=== PATIENT | female | born 1950 | race Caucasian/White ===

== ENCOUNTER 2022-06-02 14:03 | Inpatient (IN) ==
--- NOTE | 2022-06-02 14:29 | Emergency Department Note ---
Impression & Plan GI bleed ADMIT ED Provider Note HPI: The patient is a 71-year-old female who presents the emergency department with a chief complaint of intermittent lightheadedness and generalized weakness for the past several days. Patient states she was seen by her PCP today for the symptoms, she was recommended to come to the emergency department for further assessment as she states her PCP noted "fluid on my lungs". On arrival here to the ED the patient is hemodynamically stable, she is saturating well on room air, heart rate is within normal limits, blood pressure stable 131/89. Patient is afebrile on arrival. ROS: - Per HPI *Outpatient medications and allergy history reviewed. *Pertinent external medical records reviewed. PE: General: Alert HEENT: Normocephalic, trachea midline Eyes: Extraocular eye movement is intact, no scleral erythema Pulmonary: Clear to auscultation bilaterally, no wheezing Cardio: Regular rate and irregular GI: Abdomen is soft to palpation : No suprapubic tenderness MSK: No evidence of trauma or malformation of the extremities, no edema Skin: No evidence of rash Neuro: Alert, no focal deficits Psychiatric: Cooperative property assessment monitor: (As interpreted by myself): - An order was placed for continuous cardiac monitoring - Patient was noted to be in sinus rhythm with a rate of 70 EKG: (As interpreted by myself): Rate: 69 Rhythm: Atrial fibrillation Intervals: Within normal limits ST changes: No ST elevation Time: 14:23 Interventions provided in ED: -IV fluid bolus, packed red blood cell transfusion ordered Differential Diagnosis: ACS, pulmonary edema, CHF exacerbation, sepsis, pulmonary effusion, amongst other potential pathologies. Medical Decision Making: The patient is a 71-year-old female who presents emergency department with a chief complaint of generalized weakness and intermittent shortness of breath. Patient states that she feels generally weak and this seems to worsen with exertion, at times she feels more short of breath with exertion. Denies any recent chest pain, denies any abdominal pain, denies any recent nausea or vomiting. IV was established and lab work obtained, patient's lab work shows multiple abnormalities including a hemoglobin of 7.2, she is hemodynamically stable on arrival and when asked the patient about her hemoglobin level she tells me this is not previously been an issue for her. She does state that she has had some dark stools more often over the past several weeks, denies any luis bleeding per rectum, denies any hematemesis. Rectal examination was done at the bedside and occult stool test was performed that was positive. Lab work also shows evidence of renal failure with creatinine of 3.76, also evidence of slight elevation in troponin level at 43.7, BNP is elevated. Patient was given IV fluids here in the ED given her anemia and acute kidney injury, despite mild pulmonary edema on chest x-ray and elevated BNP level as she is saturating well on room air. Her daughter at the bedside was able to show me lab work from January 2022 that showed a hemoglobin level greater than 11 and creatinine level at 2.8. I think her symptoms of shortness of breath and generalized weakness are likely more secondary to symptomatic anemia as opposed to fluid overload. In addition, there is a mild transaminitis, patient denies any recent nausea or vomiting, denies any abdominal pain, Gómez sign is negative on my exam, low suspicion for any acute biliary pathology. Type and screen was ordered, patient was consented at the bedside for packed red blood cell transfusion given her anemia with evidence of end organ damage, patient does have antibodies unfortunately therefore there will be some delay, fortunately she is hemodynamically stable and in no acute distress currently. At this time will not plan for urgent reversal of Eliquis with Kcentra, will plan to hold next dose while inpatient given the patient's hemodynamic stability without luis bleeding. I discussed all of the above findings with the on-call hospitalist for [facility] [place], Dr. Shah, who did accept the patient for admission. At this time given her hemodynamic stability GI referral/consult will be made by the inpatient team. Patient and her family at the bedside are in agreement to the above plan the patient was placed for admission in stable condition. Consultants: Hospitalist service, Dr. Shah Disposition discussion held by myself with: Patient * CRITICAL CARE TIME: ( 40 ) minutes -Stabilization of anemia with hemoglobin of 7.2 requiring packed red blood cell transfusion as this is in the setting of acute kidney injury and elevated troponin, management of symptomatic anemia, discussion with other physicians and arrangement of admission Diagnosis: 1. Lower GI bleed 2. Occult positive stool 3. Symptomatic anemia 4. Elevated troponin 5. Acute on chronic kidney injury 6. Transaminitis, mild Disposition: Admission Sung Gomez DO Emergency Medicine Past Med/Surg History Social History Smoking Status: Former smoker Feels Safe at Home: Yes Allergies Allergies Allergy/AdvReac Type Severity Reaction Status Date / Time tramadol Allergy Severe Anaphylaxis Verified 06/02/22 16:16 dopamine Allergy Unknown CAN'T Verified 06/02/22 16:16 REMEMBER morphine AdvReac Severe SEVERE Verified 06/02/22 16:16 VOMITING--"SICKER THAN A DOG" gabapentin AdvReac Intermediate INCREASED Verified 06/02/22 16:16 LEG EDEMA lisinopril AdvReac Intermediate Cough Verified 06/02/22 16:16 rofecoxib AdvReac Intermediate SWELLING Verified 06/02/22 16:16 OF ANKLES/FEET Home Meds Home Medications Medication Instructions Recorded Confirmed acetaminophen 500 mg tablet 1,000 mg PO BID PRN Pain 06/02/22 06/02/22 (Tylenol Extra Strength) albuterol sulfate 90 mcg/actuation 2 puff inhalation Q4H PRN 06/02/22 06/02/22 aerosol inhaler (ProAir HFA) Shortness Of Breath Or Wheezing allopurinol 300 mg tablet 300 mg PO QAM 06/02/22 06/02/22 anastrozole 1 mg tablet 1 mg PO QAM 06/02/22 06/02/22 apixaban 5 mg tablet (Eliquis) 5 mg PO BID 06/02/22 06/02/22 bumetanide 1 mg tablet 1 mg PO BID 06/02/22 06/02/22 carvedilol 12.5 mg tablet 12.5 mg PO BID 06/02/22 06/02/22 cholecalciferol (vitamin D3) 50 50 mcg PO QAM 06/02/22 06/02/22 mcg (2,000 unit) capsule (Vitamin D3) dulaglutide 3 mg/0.5 mL 3 mg subcut WK 06/02/22 06/02/22 subcutaneous pen injector (Trulicity) empagliflozin 10 mg tablet 10 mg PO QAM 06/02/22 06/02/22 fluticasone propionate 230 2 puff inhalation BID 06/02/22 06/02/22 mcg-salmeterol 21 mcg/actuation HFA inhaler (Advair HFA) fluticasone propionate 50 2 spray intranasal HS 06/02/22 06/02/22 mcg/actuation nasal spray,suspension folic acid 1 mg tablet 1 mg PO QAM 06/02/22 06/02/22 insulin aspart U-100 100 unit/mL 1 sliding scale dose continuous 06/02/22 06/02/22 subcutaneous solution subcutaneous infusion CONTINOUS lorazepam 0.5 mg tablet 0.5 mg PO HS PRN Insomnia 06/02/22 06/02/22 nitroglycerin 0.4 mg sublingual 0.4 mg sublingual DIRECTED PRN 06/02/22 06/02/22 tablet (Nitrostat) Chest Pain pantoprazole 20 mg tablet,delayed 20 mg PO DAILYBB 06/02/22 06/02/22 release ranolazine 500 mg tablet,extended 500 mg PO BID 06/02/22 06/02/22 release,12 hr rosuvastatin 40 mg tablet (Crestor) 40 mg PO HS 06/02/22 06/02/22 trazodone 100 mg tablet 100 mg PO HS PRN Sleep 06/02/22 06/02/22 vericiguat 10 mg tablet (Verquvo) 10 mg PO DAILY 06/02/22 06/02/22 Results & Data (ED) Vital Signs Vital Signs - 24 hr 06/02/22 14:09 06/02/22 14:13 06/02/22 14:13 Temperature 36.7 C Temperature Source Oral Pulse Rate 92 H Pulse Rate [Apical] Respiratory Rate 20 Respiratory Effort / Characteristics Non-Labored Spontaneous SOB on Exertion Respiratory Depth Normal Normal Blood Pressure 131/89 Blood Pressure [Left Arm] Blood Pressure Mean 103 Blood Pressure Mean [Left Arm] Pulse Oximetry 96 96 Oxygen Delivery Method Room Air Room Air Sepsis Recent Fever Within 48 Hours No Sepsis New/Unexplained Change in Mental Status No Sepsis Action Taken by Nursing No Action Required 06/02/22 14:20 06/02/22 15:00 Temperature Temperature Source Pulse Rate 85 Pulse Rate [Apical] 67 Respiratory Rate 18 Respiratory Effort / Characteristics Non-Labored Spontaneous Respiratory Depth Normal Blood Pressure Blood Pressure [Left Arm] 123/54 L Blood Pressure Mean Blood Pressure Mean [Left Arm] 77 Pulse Oximetry 98 Oxygen Delivery Method Room Air Sepsis Recent Fever Within 48 Hours Sepsis New/Unexplained Change in Mental Status Sepsis Action Taken by Nursing Laboratory Data 06/02/22 14:10 06/02/22 14:10 Lab Results 06/02/22 06/02/22 06/02/22 Range/Units 14:10 14:10 14:10 WBC 8.42 (4.8-10.8) K/ul RBC 2.87 L (4.20-5.40) M/uL Hgb 7.2 L (12.0-16.0) g/dl Hct 23.0 L (37.0-47.0) % MCV 80.1 (80.0-100.0) fL MCH 25.1 (25.0-34.0) pg MCHC 31.3 L (32.0-36.0) g/dL RDW Std Deviation 57.1 H (36.4-46.3) fL RDW Coeff of Vasu 19.8 H (11.5-14.5) % Plt Count 163 (130-400) K/uL MPV 11.2 (9.4-12.4) fL Immature Gran % (Auto) 0.6 % Neut % (Auto) 79.6 % Lymph % (Auto) 9.0 % [place] % (Auto) 8.8 % Eos % (Auto) 1.5 % Baso % (Auto) 0.5 % Neut # (Auto) 6.70 H (1.40-6.50) K/uL Lymph # (Auto) 0.76 L (1.2-3.4) K/uL [place] # (Auto) 0.74 H (0.11-0.59) K/uL Eos # (Auto) 0.13 (0-0.50) K/uL Baso # (Auto) 0.04 (0-0.2) K/uL Immature Gran # (Auto) 0.05 (0.01-0.20) K/uL Absolute Nucleated RBC 0.02 (0-0.12) K/uL Nucleated RBC % (auto) 0.2 % Polychromasia 1+ PT 20.2 H (9.0-12.0) Seconds INR 2.0 H (0.9-1.1) Sodium 138 (136-145) mmol/L Potassium 3.5 (3.5-5.1) mmol/L Chloride 101 (98-107) mmol/L Carbon Dioxide 27 (21-32) mmol/L Anion Gap 10 (3-11) BUN 73 H (6-23) mg/dl Creatinine 3.76 H (0.6-1.2) mg/dl Est Cr Clr Drug Dosing 15.4 ml/min Est GFR ( Amer) 13.2 ml/min Est GFR (Non-Af Amer) 11.4 ml/min BUN/Creatinine Ratio 19.4 (10-20) Glucose 57 L (70-99(Fasting)) mg/dl Calcium 9.9 (8.5-10.1) mg/dl Iron 21 L (35-150) mcg/dl TIBC 436 (250-450) mcg/dl Unsaturated IBC 415 H (155-355) mcg/dl Transferrin % Sat 5 L (15-50) % Total Bilirubin 1.3 H (0.2-1.0) mg/dl AST 145 H (13-39) U/L ALT 115 H (7-52) U/L Alkaline Phosphatase 125 H (34-104) U/L Troponin I High Sens 43.7 H (0-14) pg/ml B-Natriuretic Peptide (0-100) pg/ml Total Protein 7.0 (6.0-8.3) gm/dl Albumin 3.9 (3.4-5.0) gm/dl Globulin 3.1 (2.5-4.0) gm/dl Albumin/Globulin Ratio 1.3 (0.9-2) Lipase 57 (11-82) U/L SARS-CoV-2 (PCR) Blood Type Blood Type Recheck Antibody Screen Crossmatch 06/02/22 06/02/22 06/02/22 Range/Units 14:30 14:54 16:13 WBC (4.8-10.8) K/ul RBC (4.20-5.40) M/uL Hgb (12.0-16.0) g/dl Hct (37.0-47.0) % MCV (80.0-100.0) fL MCH (25.0-34.0) pg MCHC (32.0-36.0) g/dL RDW Std Deviation (36.4-46.3) fL RDW Coeff of Vasu (11.5-14.5) % Plt Count (130-400) K/uL MPV (9.4-12.4) fL Immature Gran % (Auto) % Neut % (Auto) % Lymph % (Auto) % [place] % (Auto) % Eos % (Auto) % Baso % (Auto) % Neut # (Auto) (1.40-6.50) K/uL Lymph # (Auto) (1.2-3.4) K/uL [place] # (Auto) (0.11-0.59) K/uL Eos # (Auto) (0-0.50) K/uL Baso # (Auto) (0-0.2) K/uL Immature Gran # (Auto) (0.01-0.20) K/uL Absolute Nucleated RBC (0-0.12) K/uL Nucleated RBC % (auto) % Polychromasia PT (9.0-12.0) Seconds INR (0.9-1.1) Sodium (136-145) mmol/L Potassium (3.5-5.1) mmol/L Chloride (98-107) mmol/L Carbon Dioxide (21-32) mmol/L Anion Gap (3-11) BUN (6-23) mg/dl Creatinine (0.6-1.2) mg/dl Est Cr Clr Drug Dosing ml/min Est GFR ( Amer) ml/min Est GFR (Non-Af Amer) ml/min BUN/Creatinine Ratio (10-20) Glucose (70-99(Fasting)) mg/dl Calcium (8.5-10.1) mg/dl Iron (35-150) mcg/dl TIBC (250-450) mcg/dl Unsaturated IBC (155-355) mcg/dl Transferrin % Sat (15-50) % Total Bilirubin (0.2-1.0) mg/dl AST (13-39) U/L ALT (7-52) U/L Alkaline Phosphatase (34-104) U/L Troponin I High Sens (0-14) pg/ml B-Natriuretic Peptide 1106 H (0-100) pg/ml Total Protein (6.0-8.3) gm/dl Albumin (3.4-5.0) gm/dl Globulin (2.5-4.0) gm/dl Albumin/Globulin Ratio (0.9-2) Lipase (11-82) U/L SARS-CoV-2 (PCR) Blood Type O Positive Blood Type Recheck O Positive Antibody Screen POSITIVE A Crossmatch See Detail 06/02/22 06/02/22 Range/Units 16:46 17:21 WBC (4.8-10.8) K/ul RBC (4.20-5.40) M/uL Hgb 6.9 L* (12.0-16.0) g/dl Hct 21.9 L (37.0-47.0) % MCV (80.0-100.0) fL MCH (25.0-34.0) pg MCHC (32.0-36.0) g/dL RDW Std Deviation (36.4-46.3) fL RDW Coeff of Vasu (11.5-14.5) % Plt Count (130-400) K/uL MPV (9.4-12.4) fL Immature Gran % (Auto) % Neut % (Auto) % Lymph % (Auto) % [place] % (Auto) % Eos % (Auto) % Baso % (Auto) % Neut # (Auto) (1.40-6.50) K/uL Lymph # (Auto) (1.2-3.4) K/uL [place] # (Auto) (0.11-0.59) K/uL Eos # (Auto) (0-0.50) K/uL Baso # (Auto) (0-0.2) K/uL Immature Gran # (Auto) (0.01-0.20) K/uL Absolute Nucleated RBC (0-0.12) K/uL Nucleated RBC % (auto) % Polychromasia PT (9.0-12.0) Seconds INR (0.9-1.1) Sodium (136-145) mmol/L Potassium (3.5-5.1) mmol/L Chloride (98-107) mmol/L Carbon Dioxide (21-32) mmol/L Anion Gap (3-11) BUN (6-23) mg/dl Creatinine (0.6-1.2) mg/dl Est Cr Clr Drug Dosing ml/min Est GFR ( Amer) ml/min Est GFR (Non-Af Amer) ml/min BUN/Creatinine Ratio (10-20) Glucose (70-99(Fasting)) mg/dl Calcium (8.5-10.1) mg/dl Iron (35-150) mcg/dl TIBC (250-450) mcg/dl Unsaturated IBC (155-355) mcg/dl Transferrin % Sat (15-50) % Total Bilirubin (0.2-1.0) mg/dl AST (13-39) U/L ALT (7-52) U/L Alkaline Phosphatase (34-104) U/L Troponin I High Sens (0-14) pg/ml B-Natriuretic Peptide (0-100) pg/ml Total Protein (6.0-8.3) gm/dl Albumin (3.4-5.0) gm/dl Globulin (2.5-4.0) gm/dl Albumin/Globulin Ratio (0.9-2) Lipase (11-82) U/L SARS-CoV-2 (PCR) Cancelled Blood Type Blood Type Recheck Antibody Screen Crossmatch Administered Medications Pantoprazole Sodium 40 mg/ (Syringe) 10 mls @ 5 mls/min IV BID STANISLAW Stop: 07/02/22 16:34 Last Admin: 06/02/22 17:33 Dose: 5 mls/min Documented By: NRB Discontinued Medications Sodium Chloride (Nss 1000ml) 500 mls @ 999 mls/hr IV .Q31M ONE Stop: 06/02/22 16:22 Last Admin: 06/02/22 17:18 Dose: 999 mls/hr Documented By: QGV Imaging Data Radiologist's Impression: Chest X-Ray 06/02/22 14:09 XR chest 1V portable HISTORY: 71 years-old Female Chest pain, nonspecific COMPARISON: None TECHNIQUE: AP view of the chest FINDINGS: Cardiac silhouette is enlarged. Left subclavian pacer with prior median sternotomy and CABG. No pneumothorax, pleural effusion, airspace consolidation or overt pulmonary edema. Suggested coronary vascular congestion. Left upper chest vascular stent graft. Bones appear grossly intact. IMPRESSION: Cardiomegaly with pulmonary vascular congestion. ACT 112: Negative or not required by law. The above report was generated using voice recognition software. It may contain grammatical, syntax or spelling errors. Electronically signed by: Amos Lanza M.D. 06/02/2022 2:40 PM Discharge Plan Visit Data Chief Complaint: Cardiac Assessment ED Provider: Sung Gomez Discharge Problem: GI bleed Forms Stand Alone Forms: [facility] [employer] Prescriptions Prescriptions: No Action anastrozole 1 mg tablet 1 mg PO QAM carvedilol 12.5 mg tablet 12.5 mg PO BID Rx Instructions: PER EXT MED HX--LAST FILLED 05/08/22. PER [facility] TAKING 6.25 MG BID acetaminophen [Tylenol Extra Strength] 500 mg Tablet 1,000 mg PO BID PRN (Reason: Pain) pantoprazole 20 mg Tablet,Delayed Release (Dr/Ec) 20 mg PO DAILYBB lorazepam 0.5 mg Tablet 0.5 mg PO HS PRN (Reason: Insomnia) trazodone 100 mg tablet 100 mg PO HS PRN (Reason: Sleep) insulin aspart U-100 100 unit/mL Solution 1 sliding scale dose continuous subcutaneous infusion CONTINOUS Rx Instructions: PER [facility]--15 UNITS/BREAKFAST, 40 UNITS LUNCH & DINNER WITH ADDITIONAL CORRECTION FACTOR. nitroglycerin [Nitrostat] 0.4 mg Tablet, Sublingual 0.4 mg sublingual DIRECTED PRN (Reason: Chest Pain) Rx Instructions: 1 TAB UNDER TONGUE EVERY 5 MIN. NEEDED, MAX 3 DOSES, IF CONTINUES CALL 911. bumetanide 1 mg tablet 1 mg PO BID Rx Instructions: PER [facility]--IF WT GAIN >3LB/24 HR OR 5 LB/3 DAYS, TAKES 2 MG IN MORNING. folic acid 1 mg Tablet 1 mg PO QAM allopurinol 300 mg tablet 300 mg PO QAM albuterol sulfate [ProAir HFA] 90 mcg/actuation Hfa Aerosol Inhaler 2 puff INHALATION Q4H PRN (Reason: Shortness Of Breath Or Wheezing) fluticasone propionate [Flonase] 50 mcg/actuation [place],Suspension 2 spray INTRANASAL HS Rx Instructions: administer into each nostril rosuvastatin [Crestor] 40 mg Tablet 40 mg PO HS ranolazine [Ranexa] 500 mg Tablet Extended Release 12 Hr 500 mg PO BID Advair HFA 230-21 mcg/actuation Hfa Aerosol Inhaler 2 puff INHALATION BID cholecalciferol (vitamin D3) [Vitamin D3] 50 mcg (2,000 unit) Capsule 50 mcg PO QAM Eliquis 5 mg tablet 5 mg PO BID empagliflozin 10 mg Tablet 10 mg PO QAM Trulicity 3 mg/0.5 mL pen injector 3 mg SUBCUT WK Rx Instructions: TAKES ON SUNDAYS Verquvo 10 mg Tablet 10 mg PO DAILY Rx Instructions: must administer with a meal/food Referrals Referrals: PCP,NO [Primary Care Provider] -
[2022-06-02 14:32] LABS: Basophils # (auto) 0.04 K/uL (0-0.2); Basophils % (auto) 0.5 %; Eosinophils # (auto) 0.13 K/uL (0-0.50); Eosinophils % (auto) 1.5 %; Hemoglobin 7.2 g/dl (12.0-16.0); Immature Granulocytes # (auto) 0.05 K/uL (0.01-0.20); Immature Granulocytes % (auto) 0.6 %; Lymphocytes # (auto) 0.76 K/uL (1.2-3.4); Mean Corpuscular Hemoglobin 25.1 pg (25.0-34.0); Mean Corpuscular Hgb Conc 31.3 g/dL (32.0-36.0); Mean Corpuscular Volume 80.1 fL (80.0-100.0); Mean Platelet Volume 11.2 fL (9.4-12.4); Monocytes # (auto) 0.74 K/uL (0.11-0.59); Monocytes % (auto) 8.8 %; Neutrophils % (auto) 79.6 %; Nucleated RBC # (auto) 0.02 K/uL (0-0.12); Nucleated RBC % (auto) 0.2 %; Platelet Count 163 K/uL (130-400); RDW Coefficient of Variation 19.8 % (11.5-14.5); RDW Standard Deviation 57.1 fL (36.4-46.3); Red Blood Count 2.87 M/uL (4.20-5.40); White Blood Count 8.42 K/ul (4.8-10.8)
--- NOTE | 2022-06-02 14:42 | XRay Report ---
XR chest 1V portable HISTORY: 71 years-old Female Chest pain, nonspecific COMPARISON: None TECHNIQUE: AP view of the chest FINDINGS: Cardiac silhouette is enlarged. Left subclavian pacer with prior median sternotomy and CABG. No pneum othorax, pleural effusion, airspace consolidation or overt pulmonary edema. Suggested coronary vascul ar congestion. Left upper chest vascular stent graft. Bones appear grossly intact. IMPRESSION: Cardiomegaly with pulmonary vascular congestion. ACT 112: Negative or not required by law. The above report was generated using voice recognition software. It may contain grammatical, syntax o r spelling errors. Electronically signed by: Amos Lanza M.D. 06/02/2022 2:40 PM
[2022-06-02 14:49] LABS: Polychromasia 1+
[2022-06-02 14:53] LABS: Albumin Globulin Ratio 1.3 (0.9-2); Albumin Level 3.9 gm/dl (3.4-5.0); BUN Creatinine Ratio 19.4 (10-20); Bilirubin,Total 1.3 mg/dl (0.2-1.0); Calcium 9.9 mg/dl (8.5-10.1); Creatinine Clr Calc Pharmacy 15.4 ml/min; Est GFR (African American) 13.2 ml/min; Est GFR (Non-African American) 11.4 ml/min; Globulin 3.1 gm/dl (2.5-4.0); Potassium 3.5 mmol/L (3.5-5.1)
[2022-06-02 14:56] LABS: Troponin I High Sensitivity 43.7 pg/ml (0-14)
[2022-06-02 15:00] LABS: Prothrombin Time 20.2 Seconds (9.0-12.0)
[2022-06-02] MEDS ORDERED: SODIUM CHLORIDE 0.9% 250 ML IV PRN (15:39)
[2022-06-02] MEDS ORDERED: SODIUM CHLORIDE 0.9% 1000ML 500 ML IV ONE (15:52)
[2022-06-02] MEDS ORDERED: POLYETHYLENE (MIRALAX) 17 GM PACK PO PRN (16:36)
[2022-06-02] MEDS ORDERED: GLUCOSE 40% GEL 15 GM TUBE PO PRN (16:36)
[2022-06-02] MEDS ORDERED: GLUCOSE 10 TAB/TUBE PO PRN (16:36)
[2022-06-02] MEDS ORDERED: PHARMACY GLYCEMIC MGMT CONSULT PRN (16:36)
[2022-06-02] MEDS ORDERED: ALUMINUM/MAGNESIUM SUSP 30 ML UDC PO PRN (16:36)
[2022-06-02] MEDS ORDERED: ACETAMINOPHEN 325 MG TAB PO PRN (16:36)
[2022-06-02] MEDS ORDERED: GLUCAGON FOR INJ 1 MG VIAL SQ PRN (16:36)
[2022-06-02] MEDS ORDERED: ONDANSETRON INJ 2 MG/ML 2 ML VIAL IV PRN (16:36)
[2022-06-02] MEDS ORDERED: MAGNESIUM HYDROXIDE SUSP 30 ML UDC PO PRN (16:36)
[2022-06-02] MEDS ORDERED: DEXTROSE 50% 50 ML SYRINGE IV PRN (16:36)
--- NOTE | 2022-06-02 16:57 | History & Physical Report ---
Date of Service June 02, 2022 Assessment & Plan (1) GI bleed: Plan Acute on chronic anemia Likely upper GI bleed Patient did came in with tiredness/lethargy for 4 to 5 days ago [employer], associated with dark stool for about the same duration. Hemoglobin at presentation 7.2, upon outpatient chart review her hemoglobin around 9, FOBT was positive in the ED. N.p.o., PPI drip, blood transfusion for hemoglobin less than 8.0 or symptomatic anemia. GI consult. Blood transfusion has been ordered. Acute on chronic renal failure on CKD stage IV Admitting creatinine of 3.76, creatinine around 2.4-2.8 upon outpatient chart review. Patient received 500 mL IV fluid in the ED, will be receiving blood, BMP in AM. Avoid nephrotoxic's. Nephrology consult. Acute on chronic heart failure with reduced ejection fraction Patient was noted to have crackles at PCP office, admitting chest x-ray with congestion, on exam BLE pitting edema. admitting EKG with A-fib with rate controlled Patient with worsening renal function, will hold nephrotoxics, cardiology consult, Telemetry monitoring. Likely congestive hepatopathy: Liver enzymes are elevated, INR elevated. Monitor labs in AM. If not improving with improving CHF, consider discussion with GI. T2DM: On Jardiance/Trulicity/NovoLog insulin/insulin pump. We will hold home medication, patient will be n.p.o. for now, pharmacy consult, sliding scale insulin while in hospital. Hold on long acting as pt npo. Hold pt's insulin pump while in hospital. Other chronic medical conditions: moderate persistent asthma/ HTN/HLD--- patient does not use her inhalers medications as often, resume other home meds as able. DNR/DNI DVT prophylaxis: SCDs, GI bleed. History of Present Illness Chief Complaint: Lethargy/tiredness/weakness/"fluid in lungs" Primary Care Provider: NO PCP 71-year-old lady with PMH of T2DM on oral meds and insulin pump, moderate persistent asthma, HLD, HTN, TRUE on CPAP, extensive cardiac history, ischemic cardiomyopathy with HFrEF [EF of 20 to 34% on 10/01/2021 echo], iron deficiency anemia, CKD stage IV, anemia of chronic kidney disease, history of right breast cancer status post partial right mastectomy and currently on anastrozole presented to the ED 06/02 from PCP office w/ c/o " fluid in the lungs. Patient is very much oriented and able to give her complete history, patient's daughter and granddaughter at bedside. They report that patient was feeling weak and lethargic since 4 to 5 days [employer], went to PCP office today where she was found to have " fluid in the lungs" and EKG was done which showed A-fib with controlled rate and was sent to the ED for further evaluation. Patient also reports having darker stool for about the same time, reports dizziness. Patient has not noticed any fresh blood in the stool. Patient denies any headache or shortness of breath or sore throat or flulike illness or chest pain or palpitation or belly pain or pain/burning while passing urine. Patient reports having dry cough since 4 to 5 days ago [employer] and also reports being constipated on and off. Patient reports quitting smoking 33 years ago, used to drink occasionally but quit drinking about 12 to 15 years ago, denies any recreational drug use. CODE STATUS DNR/DNI as per my discussion with the patient and her family at bedside. Patient does not have personal history of stroke but does have extensive cardiac history. Patient reports cancer in her family with ovarian cancer in mother and breast cancer in her sister. All the medications were reviewed with the patient. Plan of care discussed with the patient and her family at bedside, they voiced understanding. Allergies Allergy/AdvReac Type Severity Reaction Status Date / Time tramadol Allergy Severe Anaphylaxis Verified 06/02/22 16:16 dopamine Allergy Unknown CAN'T Verified 06/02/22 16:16 REMEMBER morphine AdvReac Severe SEVERE Verified 06/02/22 16:16 VOMITING--"SICKER THAN A DOG" gabapentin AdvReac Intermediate INCREASED Verified 06/02/22 16:16 LEG EDEMA lisinopril AdvReac Intermediate Cough Verified 06/02/22 16:16 rofecoxib AdvReac Intermediate SWELLING Verified 06/02/22 16:16 OF ANKLES/FEET Home Medications Medication Instructions Recorded Confirmed Type acetaminophen 500 mg tablet 1,000 mg PO BID PRN Pain 06/02/22 06/02/22 History (Tylenol Extra Strength) albuterol sulfate 90 mcg/actuation 2 puff inhalation Q4H PRN 06/02/22 06/02/22 History aerosol inhaler (ProAir HFA) Shortness Of Breath Or Wheezing allopurinol 300 mg tablet 300 mg PO QAM 06/02/22 06/02/22 History anastrozole 1 mg tablet 1 mg PO QAM 06/02/22 06/02/22 History apixaban 5 mg tablet (Eliquis) 5 mg PO BID 06/02/22 06/02/22 History bumetanide 1 mg tablet 1 mg PO BID 06/02/22 06/02/22 History carvedilol 12.5 mg tablet 12.5 mg PO BID 06/02/22 06/02/22 History cholecalciferol (vitamin D3) 50 50 mcg PO QAM 06/02/22 06/02/22 History mcg (2,000 unit) capsule (Vitamin D3) dulaglutide 3 mg/0.5 mL 3 mg subcut WK 06/02/22 06/02/22 History subcutaneous pen injector (Trulicity) empagliflozin 10 mg tablet 10 mg PO QAM 06/02/22 06/02/22 History fluticasone propionate 230 2 puff inhalation BID 06/02/22 06/02/22 History mcg-salmeterol 21 mcg/actuation HFA inhaler (Advair HFA) fluticasone propionate 50 2 spray intranasal HS 06/02/22 06/02/22 History mcg/actuation nasal spray,suspension folic acid 1 mg tablet 1 mg PO QAM 06/02/22 06/02/22 History insulin aspart U-100 100 unit/mL 1 sliding scale dose continuous 06/02/22 06/02/22 History subcutaneous solution subcutaneous infusion CONTINOUS lorazepam 0.5 mg tablet 0.5 mg PO HS PRN Insomnia 06/02/22 06/02/22 History nitroglycerin 0.4 mg sublingual 0.4 mg sublingual DIRECTED PRN 06/02/22 06/02/22 History tablet (Nitrostat) Chest Pain pantoprazole 20 mg tablet,delayed 20 mg PO DAILYBB 06/02/22 06/02/22 History release ranolazine 500 mg tablet,extended 500 mg PO BID 06/02/22 06/02/22 History release,12 hr rosuvastatin 40 mg tablet (Crestor) 40 mg PO HS 06/02/22 06/02/22 History trazodone 100 mg tablet 100 mg PO HS PRN Sleep 06/02/22 06/02/22 History vericiguat 10 mg tablet (Verquvo) 10 mg PO DAILY 06/02/22 06/02/22 History Past Med/Surg History Social History Smoking Status: Former smoker Feels Safe at Home: Yes Review of Systems Review of Systems: Negative otherwise mentioned in HPI. Physical Exam Physical Exam: GENERAL: Alert and oriented x3. NAD, on RA. HEENT: No pallor, no icterus. Pupils equal, round and reactive to light. Oral mucosa moist. NECK: No JVD, no neck masses. HEART: S1 and S2 heard. irregular rate and rhythm. No murmur, no gallop. Old healed mid sternotomy scar noted. RESPIRATORY SYSTEM: Normal AP diameter. No accessory muscle use. No wheezing, no crackles. ABDOMEN: Soft, bowel sounds present, nontender, no distention. CENTRAL NERVOUS SYSTEM: No facial droop. Speech is clear. Obeys simple commands. Moves extremities. EXTREMITIES: RLE 1 to 2+ edema, LLE 1+ edema, no erythema seen. Results & Data Results & Data Vital Signs (Past 12 Hours) Vital Signs Temp Pulse Pulse Resp BP BP Pulse Ox 06/02/22 15:00 67 18 123/54 L 98 06/02/22 14:20 85 06/02/22 14:13 96 06/02/22 14:09 36.7 C 92 H 20 131/89 96 O2 Del Method 06/02/22 15:00 Room Air 06/02/22 14:20 06/02/22 14:13 Room Air 06/02/22 14:09 Room Air Code Status & VTE Plan VTE Prophylaxis Plan VTE Prophylaxis will be ordered: No Reason for no VTE drug order: Contraindicated
[2022-06-02 17:21] LABS: Hematocrit (blood only) 21.9 % (37.0-47.0); Hemoglobin 6.9 g/dl (12.0-16.0)
[2022-06-02] MEDS: PANTOprazole 40 MG in SYRINGE 0 ML IV SCH ×2 (17:33→23:54)
[2022-06-02 18:08] LABS: Vitamin B12 742 pg/ml (180-914)
[2022-06-02 18:21] LABS: Adenovirus PCR Not Detected (NotDetected); Bordetella parapertussis PCR Not Detected (NotDetected); Bordetella pertussis PCR Not Detected (NotDetected); Chlamydia pneumoniae PCR Not Detected (NotDetected); Coronavirus 229E PCR Not Detected (NotDetected); Coronavirus CoV-2 (COVID19)PCR Not Detected (NotDetected); Coronavirus HKU1 PCR Not Detected (NotDetected); Coronavirus NL63 PCR Not Detected (NotDetected); Coronavirus OC43PCR Not Detected (NotDetected); Human Metapneumovirus PCR Not Detected (NotDetected); Influenza A PCR Not Detected (NotDetected); Influenza B PCR Not Detected (NotDetected); Mycoplasma pneumoniae PCR Not Detected (NotDetected); Parainfluenza Virus 1 PCR Not Detected (NotDetected); Parainfluenza Virus 2 PCR Not Detected (NotDetected); Parainfluenza Virus 3 PCR Not Detected (NotDetected); Parainfluenza Virus 4 PCR Not Detected (NotDetected); Respiratory Syncytial VirusPCR Not Detected (NotDetected); Rhinovirus/Enterovirus PCR Not Detected (NotDetected)
[2022-06-02] MEDS ORDERED: INSULIN ASPART PER UNIT CHARGE SC SCH (21:00)
[2022-06-02] MEDS: INSULIN ASPART PER UNIT CHARGE SC SCH (21:04)
[2022-06-02] MEDS ORDERED: NITROGLYCERIN SL 0.4 MG/TAB TAB SL PRN (21:10)
[2022-06-02] MEDS: CARBOHYDRATES FOR HYPOGLYCEMIA PO PRN (21:58)
[2022-06-02] MEDS: ROSUVASTATIN CALCIUM 20 MG TAB PO SCH (22:43)
[2022-06-02] MEDS: carvediloL 12.5 MG TAB PO SCH (22:44)
[2022-06-02] MEDS: RANOLAZINE 500 MG ER TAB PO SCH (22:44)
[2022-06-02] MEDS ORDERED: D5W AND NSS 1,000 ML IV SCH (22:45)
[2022-06-02] MEDS ORDERED: DEXTROSE 50% 50 ML SYRINGE IV STA (22:49)
[2022-06-03] MEDS: INSULIN ASPART PER UNIT CHARGE SC SCH ×5 (00:14→23:52)
[2022-06-03 05:49] LABS: Hematocrit (blood only) 28.9 % (37.0-47.0); Hemoglobin 9.1 g/dl (12.0-16.0); Mean Corpuscular Hemoglobin 26.1 pg (25.0-34.0); Mean Corpuscular Hgb Conc 31.5 g/dL (32.0-36.0); Mean Corpuscular Volume 82.8 fL (80.0-100.0); Mean Platelet Volume 11.5 fL (9.4-12.4); Nucleated RBC # (auto) 0.02 K/uL (0-0.12); Nucleated RBC % (auto) 0.3 %; Platelet Count 137 K/uL (130-400); RDW Coefficient of Variation 18.9 % (11.5-14.5); RDW Standard Deviation 57.1 fL (36.4-46.3); Red Blood Count 3.49 M/uL (4.20-5.40); White Blood Count 6.43 K/ul (4.8-10.8)
[2022-06-03 06:08] LABS: Albumin Level 3.7 gm/dl (3.4-5.0); BUN Creatinine Ratio 18.5 (10-20); Bilirubin Direct 0.8 mg/dl (0-0.2); Bilirubin,Total 1.5 mg/dl (0.2-1.0); Calcium 9.4 mg/dl (8.5-10.1); Creatinine Clr Calc Pharmacy 15.8 ml/min; Est GFR (African American) 14.3 ml/min; Est GFR (Non-African American) 12.4 ml/min; Magnesium 2.9 mg/dl (1.7-2.4); Potassium 4.1 mmol/L (3.5-5.1); Total Protein 6.5 gm/dl (6.0-8.3)
[2022-06-03 07:01] LABS: INR 1.9 (0.9-1.1); Prothrombin Time 19.1 Seconds (9.0-12.0)
--- NOTE | 2022-06-03 07:16 | Communication Note ---
Date of Service: June 03, 2022 Patient was having hypoglycemic episode last night. Placed on d5ns@50ml/hr and also received half amp if d50. adjusted ISS. To monitor for volume overload as has hx of chf. Thanks
--- NOTE | 2022-06-03 07:43 | Electrocardiogram Report ---
Test Reason : Blood Pressure : / mmHG Vent. Rate : 069 BPM Atrial Rate : 072 BPM P-R Int : 000 ms QRS Dur : 118 ms QT Int : 432 ms P-R-T Axes : 000 -24 119 degrees QTc Int : 462 ms Sinus rhythm with 1st degree AV block Incomplete right bundle branch block possible Inferior infarct , age undetermined Abnormal ECG No previous ECGs available Confirmed by Rick Mnea ([id number]) on 06/03/2022 7:43:24 AM Referred By: Confirmed By:Warren Mena
[2022-06-03] MEDS: carvediloL 12.5 MG TAB PO SCH ×2 (08:07→20:51)
[2022-06-03] MEDS: FOLIC ACID 1 MG TAB PO SCH (08:07)
[2022-06-03] MEDS: RANOLAZINE 500 MG ER TAB PO SCH (08:07)
[2022-06-03] MEDS: allopurinoL 300 MG TAB PO SCH (08:08)
[2022-06-03] MEDS: ANASTROZOLE 1 MG TAB PO SCH (08:08)
[2022-06-03] MEDS: CHOLECALCIFEROL 1,000 UNITS 25 MCG TAB PO SCH (08:08)
[2022-06-03] MEDS: PANTOprazole 40 MG in SYRINGE 0 ML IV SCH ×2 (09:51→20:52)
[2022-06-03 10:53] LABS: Hematocrit (blood only) 28.8 % (37.0-47.0)
[2022-06-03] MEDS ORDERED: FUROSEMIDE 40 MG/4 ML VIAL IV ONE (11:31)
--- NOTE | 2022-06-03 12:16 | Consultation Report ---
NEPHROLOGY CONSULTATION NOTE REASON FOR CONSULTATION: Acute renal failure and background CKD IV in a patient admitted with GI bleed. HISTORY OF PRESENT ILLNESS: The patient is a 71-year-old female who has longstanding history of type 2 diabetes, chronic kidney disease stage IV, with a baseline creatinine just under 3. In fact, she is my clinic patient for many years. She has very extensive cardiac history with ischemic cardiomyopathy, frequent admission for congestive heart failure, ejection fraction of 20-35% as well as multiple other medical problems. She was sent over from the PCP office yesterday because of fluid in the lungs. The patient has been feeling very fatigued and unable to do anything for the last few days prior to admission. EKG was done, which also showed atrial fibrillation, but I do not think this is new. She was also reported to have darker blackish stool for the last few days. Hemoglobin was found to be low at 6.9. She received 2 units of blood transfusion over the night. This morning, hemoglobin is 9.0. She is currently strictly n.p.o. pending GI evaluation. Creatinine on admission was 3.76, which is slightly higher than baseline. This morning it was slightly lower at 3.52. She also developed hypoglycemia and is currently getting dextrose water at 50 mL per hour. She is not getting her usual Bumex. At home, she is currently on Bumex 1 mg twice daily, but her dose has been all over the place. . Chest x-ray shows pulmonary vascular congestion. ALLERGIES: Reviewed in detail. MEDICATIONS: Home medication list was reviewed in detail and is as per the reconciliation list and the H and P. Of special interest, she takes Bumex 1 mg twice daily. PAST MEDICAL AND SURGICAL HISTORY: Reviewed in detail in the H and P. On top of that, she also has obstructive sleep apnea, on CPAP, hypertension, hyperlipidemia, numerous cardiac stents, anemia of chronic disease, history of right breast cancer, status post partial right mastectomy and currently on anastrozole, chronic anticoagulation with Eliquis. REVIEW OF SYSTEMS: Positive for fatigue, weakness, shortness of breath and some orthopnea for the last few days and dark colored stool. Otherwise, 12 systems reviewed and is negative. PHYSICAL EXAMINATION: GENERAL: Elderly white female who is somewhat obese. She is awake, alert, oriented x3, able to give me a pretty detailed history of her medical problems. VITAL SIGNS: Blood pressure is 124/75, pulse rate 71, temperature 36.9, 98% on room air. HEENT: Mucous membranes moist. NECK: Supple. Jugular venous distention is present. CHEST: Bilateral decreased breath sounds, occasional crackles at the bases. CARDIOVASCULAR: S1 and S2, regular. Soft systolic murmur heard. ABDOMEN: Soft, nontender, obese. EXTREMITIES: Show trace to 1+ edema. DIAGNOSTIC DATA: Chest x-ray shows pulmonary congestion. LABORATORY TEST: Shows a hemoglobin as low as 6.9, after transfusion is 9.0. Creatinine baseline is just around 3, on admission was 3.76 and is down to 3.5. Sodium 137, potassium 4.1, anion gap 12. ASSESSMENT AND PLAN: A 71-year-old female with CKD IV, baseline creatinine just under 3 as well as very extensive cardiac history, now admitted with likely GI bleed with significant drop in hemoglobin. I have been consulted for acute renal failure on background CKD IV. 1. Her current creatinine of 3.5 is really not that different from her baseline of just under 3. Given significant drop in hemoglobin, it is not surprising to have some worsening in the kidney function. However, I do feel she is in congestive heart failure and does need some IV diuretics. I have known her for many years since she has had numerous admissions related with congestive heart failure, even requiring ICU stay multiple times. I would stop the dextrose water and monitor her glucose carefully. Give Lasix 40 mg IV x1 now. Most importantly make sure her hemoglobin remains stable at least more than 8 to allow for better renal recovery. No further workup is needed for acute renal failure as the acute component is quite minimal and most of it is chronic kidney disease. Avoid nephrotoxic agent like NSAIDs or contrast agent. 2. Gastrointestinal bleed as per primary team and pending GI evaluation. I will continue to follow the patient. Thank you very much for the consult. Job ID: [id number] [facility]ITAL[facility]ubrie
--- NOTE | 2022-06-03 12:48 | Cardiology Consultation ---
Date of Consultation June 03, 2022 Assessment & Plan (1) GI bleed: (2) Ischemic cardiomyopathy: (3) CKD (chronic kidney disease), stage IV: (4) Obstructive sleep apnea: Plan Very complex 71-year-old female with diffuse vascular disease and ischemic cardiomyopathy as well outlined above who presents with signs and symptoms of weakness fatigue and marked anemia. Possible upper GI bleed Clinical symptoms have improved following transfusion Patient with complex cardiac anatomy and chronic heart failure and angina pectoris but stable historically. On anticoagulation due to paroxysmal atrial fibrillation Recommendations: GI evaluation in process no contraindications to procedures if necessary Hold apixaban Would use lower dosing 2.5 mg twice per day on restart We will defer diuretic usage to nephrology recommendations. Exam not consistent with profound volume overload and clinically has responded to transfusion Continue prehospital therapies of carvedilol, rosuvastatin Hold Ranexa given degree of renal insufficiency present History of Present Illness Reason for Consultation: Symptomatic anemia, GI bleed Requesting Physician: Dr. Carroll Attending Physician: Leonila Carroll MD History of Present Illness Patient is an extremely complex 71-year-old female with ongoing issues on review of records and discussion with patient include 1. Chronic ischemic heart disease status post initial coronary bypass grafting 1989 with acute LANDERS graft closure requiring repeat surgery 1990 Chronic angina pectoris with multiple coronary interventions most recent September 2020 proximal and distal right coronary artery and RPL. With cardiac catheterization last performed September 2021. All grafts are known to be occluded. At time of last cardiac catheterization there were patent stents in the right coronary artery left main and left circumflex. Procedure complicated by acute respiratory failure requiring mechanical ventilation 2. Ischemic cardiomyopathy with severely reduced ejection fraction EF 25 %, compensated class III congestive heart failure 3. Indwelling pacer defibrillator initially placed 2008 most recent generator exchange 2018, Medtronic TVF B1 D1 4. Atherosclerotic carotid artery disease status post right carotid artery stent 2003, left internal carotid artery stent 2012 5. Atherosclerotic peripheral vascular disease with multiple interventions including left innominate artery stenting, left SFA/popliteal artery atherectomy and angioplasty 2018, left femoral-popliteal bypass 6. CKD stage IV 7. Type 2 diabetes mellitus insulin requiring 8. Multiple pulmonary nodules, chest x-ray, CT chest September 2021, December 2021 question metastatic disease versus inflammatory 9. Breast carcinoma status post right partial mastectomy February 2021, radiation therapy. On hormonal suppression 10. Obstructive sleep apnea on chronic CPAP supplementation 11. Paroxysmal atrial fibrillation on chronic anticoagulation with apixaban Patient presents this admission noting having sought evaluation by PCP for symptoms of for 5 days duration of lethargy and fatigue, dark stools. Marked pallor observed irregular heart beat observed Patient referred to ER evaluation where patient was found to be profoundly anemic, hemoglobin 6.9. Chest x-ray revealed increased interstitial markings. Patient treated with transfusion x2 units of blood with now substantial clinical improvement. She denies any chest pains or worsening shortness of breath. No dizziness or lightheadedness. Nephrology evaluating patient regarding chronic renal insufficiency and adjusted diuretics Allergies Allergy/AdvReac Type Severity Reaction Status Date / Time tramadol Allergy Severe Anaphylaxis Verified 06/02/22 16:16 dopamine Allergy Unknown CAN'T Verified 06/02/22 16:16 REMEMBER morphine AdvReac Severe SEVERE Verified 06/02/22 16:16 VOMITING--"SICKER THAN A DOG" gabapentin AdvReac Intermediate INCREASED Verified 06/02/22 16:16 LEG EDEMA lisinopril AdvReac Intermediate Cough Verified 06/02/22 16:16 rofecoxib AdvReac Intermediate SWELLING Verified 06/02/22 16:16 OF ANKLES/FEET Home Medications Medication Instructions Recorded Confirmed Type acetaminophen 500 mg tablet 1,000 mg PO BID PRN Pain 06/02/22 06/02/22 History (Tylenol Extra Strength) albuterol sulfate 90 mcg/actuation 2 puff inhalation Q4H PRN 06/02/22 06/02/22 History aerosol inhaler (ProAir HFA) Shortness Of Breath Or Wheezing allopurinol 300 mg tablet 300 mg PO QAM 06/02/22 06/02/22 History anastrozole 1 mg tablet 1 mg PO QAM 06/02/22 06/02/22 History apixaban 5 mg tablet (Eliquis) 5 mg PO BID 06/02/22 06/02/22 History bumetanide 1 mg tablet 1 mg PO BID 06/02/22 06/02/22 History carvedilol 12.5 mg tablet 12.5 mg PO BID 06/02/22 06/02/22 History cholecalciferol (vitamin D3) 50 50 mcg PO QAM 06/02/22 06/02/22 History mcg (2,000 unit) capsule (Vitamin D3) dulaglutide 3 mg/0.5 mL 3 mg subcut WK 06/02/22 06/02/22 History subcutaneous pen injector (Trulicity) empagliflozin 10 mg tablet 10 mg PO QAM 06/02/22 06/02/22 History fluticasone propionate 230 2 puff inhalation BID 06/02/22 06/02/22 History mcg-salmeterol 21 mcg/actuation HFA inhaler (Advair HFA) fluticasone propionate 50 2 spray intranasal HS 06/02/22 06/02/22 History mcg/actuation nasal spray,suspension folic acid 1 mg tablet 1 mg PO QAM 06/02/22 06/02/22 History insulin aspart U-100 100 unit/mL 1 sliding scale dose continuous 06/02/22 06/02/22 History subcutaneous solution subcutaneous infusion CONTINOUS lorazepam 0.5 mg tablet 0.5 mg PO HS PRN Insomnia 06/02/22 06/02/22 History nitroglycerin 0.4 mg sublingual 0.4 mg sublingual DIRECTED PRN 06/02/22 06/02/22 History tablet (Nitrostat) Chest Pain pantoprazole 20 mg tablet,delayed 20 mg PO DAILYBB 06/02/22 06/02/22 History release ranolazine 500 mg tablet,extended 500 mg PO BID 06/02/22 06/02/22 History release,12 hr rosuvastatin 40 mg tablet (Crestor) 40 mg PO HS 06/02/22 06/02/22 History trazodone 100 mg tablet 100 mg PO HS PRN Sleep 06/02/22 06/02/22 History vericiguat 10 mg tablet (Verquvo) 10 mg PO DAILY 06/02/22 06/02/22 History Patient History Social History Smoking Status: Former smoker Second Hand Exposure: No; Do You Dip or Chew Tobacco: No; Hx Alcohol Use: No Hx Substance Use: No Preferred Language: Peruvian Communication Ability: Effective [employer]er [employer] Required: No Beliefs That Will Affect Care: None Current Living Situation: Alone Feels Safe at Home: Yes Safety Concerns: Feels Safe At This Time Assistive Devices: None Review of Systems Review of Systems: All systems reviewed & are unremarkable except as noted in HPI & below Physical Exam Constitutional: + obese; no acute distress Eyes: PERRL, conjunctivae normal, anicteric sclerae ENMT: external ear and nose normal, oropharynx normal Neck: trachea midline, no thyromegaly + thick neck Respiratory: Auscultation: + diminished lung sounds and + crackles (Basilar) Cardiovascular: Rate/Rhythm: regular rate and regular rhythm Vessels: no JVD Extremities: + edema (1+) Diminished peripheral pulses bilaterally Gastrointestinal (Abdomen): normal bowel sounds, soft, nontender, no hepatosplenomegaly Results & Data Vital Signs (Past 12 Hours) Vital Signs Temp Pulse Pulse Pulse Resp BP BP 06/03/22 11:30 36.5 C 72 18 115/58 L 06/03/22 07:30 36.9 C 71 18 124/75 06/03/22 06:15 72 06/03/22 04:13 36.4 C L 65 16 136/81 06/03/22 03:29 36.4 C L 65 15 142/81 H 06/03/22 03:26 36.8 C 68 18 125/71 06/03/22 02:29 36.3 C L 65 14 121/71 06/03/22 01:59 36.6 C 61 15 112/56 L 06/03/22 01:44 36.3 C L 65 14 136/78 06/03/22 01:24 36.4 C L 75 14 135/78 06/03/22 01:12 36.4 C L 75 15 131/65 Pulse Ox O2 Del Method 06/03/22 11:30 99 Room Air 06/03/22 07:30 98 Room Air 06/03/22 06:15 06/03/22 04:13 98 06/03/22 03:29 99 06/03/22 03:26 99 Room Air 06/03/22 02:29 98 06/03/22 01:59 95 06/03/22 01:44 100 06/03/22 01:24 99 06/03/22 01:12 99 Laboratory Results Laboratory Results - last 24 hr 06/02/22 06/02/22 06/02/22 14:10 14:10 14:10 WBC 8.42 RBC 2.87 L Hgb 7.2 L Hct 23.0 L MCV 80.1 MCH 25.1 MCHC 31.3 L RDW Std Deviation 57.1 H RDW Coeff of Vasu 19.8 H Plt Count 163 MPV 11.2 Immature Gran % (Auto) 0.6 Neut % (Auto) 79.6 Lymph % (Auto) 9.0 Hardin % (Auto) 8.8 Eos % (Auto) 1.5 Baso % (Auto) 0.5 Neut # (Auto) 6.70 H Lymph # (Auto) 0.76 L Hardin # (Auto) 0.74 H Eos # (Auto) 0.13 Baso # (Auto) 0.04 Immature Gran # (Auto) 0.05 Absolute Nucleated RBC 0.02 Nucleated RBC % (auto) 0.2 Polychromasia 1+ PT 20.2 H INR 2.0 H Sodium 138 Potassium 3.5 Chloride 101 Carbon Dioxide 27 Anion Gap 10 BUN 73 H Creatinine 3.76 H Est Cr Clr Drug Dosing 15.4 Est GFR ( Amer) 13.2 Est GFR (Non-Af Amer) 11.4 BUN/Creatinine Ratio 19.4 Glucose 57 L POC Glucose Calcium 9.9 Phosphorus Magnesium Iron 21 L TIBC 436 Unsaturated IBC 415 H Transferrin % Sat 5 L Total Bilirubin 1.3 H Direct Bilirubin AST 145 H ALT 115 H Alkaline Phosphatase 125 H Troponin I High Sens 43.7 H B-Natriuretic Peptide Total Protein 7.0 Albumin 3.9 Globulin 3.1 Albumin/Globulin Ratio 1.3 Lipase 57 Vitamin B12 Folate Adenovirus (PCR) B. pertussis DNA (PCR) B.parapertussis DNA PCR C. pneumoniae DNA (PCR) Coronavirus OC43 (PCR) Coronavirus HKU1 (PCR) Coronavirus 229E (PCR) SARS-CoV-2 (PCR) Coronavirus NL63 (PCR) Hepatitis C Ab (EIA) Hep C Ab Signal/Cutoff Human Metapneumovir PCR Influenza Type A (PCR) Influenza Type B (PCR) M. pneumoniae (PCR) Parainfluenza 1 (PCR) Parainfluenza 2 (PCR) Parainfluenza 3 (PCR) Parainfluenza 4 (PCR) RSV (PCR) Entero/Rhino (PCR) SARS-CoV-2, RNA, NAAT Blood Type Blood Type Recheck Antibody Screen Antibody Identification Antibody ID Comment Antigen Identification Crossmatch 06/02/22 06/02/22 06/02/22 14:10 14:30 14:54 WBC RBC Hgb Hct MCV MCH MCHC RDW Std Deviation RDW Coeff of Vasu Plt Count MPV Immature Gran % (Auto) Neut % (Auto) Lymph % (Auto) Hardin % (Auto) Eos % (Auto) Baso % (Auto) Neut # (Auto) Lymph # (Auto) Hardin # (Auto) Eos # (Auto) Baso # (Auto) Immature Gran # (Auto) Absolute Nucleated RBC Nucleated RBC % (auto) Polychromasia PT INR Sodium Potassium Chloride Carbon Dioxide Anion Gap BUN Creatinine Est Cr Clr Drug Dosing Est GFR ( Amer) Est GFR (Non-Af Amer) BUN/Creatinine Ratio Glucose POC Glucose Calcium Phosphorus Magnesium Iron TIBC Unsaturated IBC Transferrin % Sat Total Bilirubin Direct Bilirubin AST ALT Alkaline Phosphatase Troponin I High Sens B-Natriuretic Peptide 1106 H Total Protein Albumin Globulin Albumin/Globulin Ratio Lipase Vitamin B12 742 Folate > 22.30 Adenovirus (PCR) B. pertussis DNA (PCR) B.parapertussis DNA PCR C. pneumoniae DNA (PCR) Coronavirus OC43 (PCR) Coronavirus HKU1 (PCR) Coronavirus 229E (PCR) SARS-CoV-2 (PCR) Coronavirus NL63 (PCR) Hepatitis C Ab (EIA) Hep C Ab Signal/Cutoff Human Metapneumovir PCR Influenza Type A (PCR) Influenza Type B (PCR) M. pneumoniae (PCR) Parainfluenza 1 (PCR) Parainfluenza 2 (PCR) Parainfluenza 3 (PCR) Parainfluenza 4 (PCR) RSV (PCR) Entero/Rhino (PCR) SARS-CoV-2, RNA, NAAT Blood Type O Positive Blood Type Recheck Antibody Screen POSITIVE A Antibody Identification Anti-K Antibody ID Comment Pending Antigen Identification K Antigen - NEGATIVE Crossmatch See Detail 06/02/22 06/02/22 06/02/22 16:13 16:46 16:58 WBC RBC Hgb 6.9 L* Hct 21.9 L MCV MCH MCHC RDW Std Deviation RDW Coeff of Vasu Plt Count MPV Immature Gran % (Auto) Neut % (Auto) Lymph % (Auto) Hardin % (Auto) Eos % (Auto) Baso % (Auto) Neut # (Auto) Lymph # (Auto) Hardin # (Auto) Eos # (Auto) Baso # (Auto) Immature Gran # (Auto) Absolute Nucleated RBC Nucleated RBC % (auto) Polychromasia PT INR Sodium Potassium Chloride Carbon Dioxide Anion Gap BUN Creatinine Est Cr Clr Drug Dosing Est GFR ( Amer) Est GFR (Non-Af Amer) BUN/Creatinine Ratio Glucose POC Glucose Calcium Phosphorus Magnesium Iron Cancelled TIBC Cancelled Unsaturated IBC Cancelled Transferrin % Sat Cancelled Total Bilirubin Direct Bilirubin AST ALT Alkaline Phosphatase Troponin I High Sens B-Natriuretic Peptide Total Protein Albumin Globulin Albumin/Globulin Ratio Lipase Vitamin B12 Folate Adenovirus (PCR) B. pertussis DNA (PCR) B.parapertussis DNA PCR C. pneumoniae DNA (PCR) Coronavirus OC43 (PCR) Coronavirus HKU1 (PCR) Coronavirus 229E (PCR) SARS-CoV-2 (PCR) Coronavirus NL63 (PCR) Hepatitis C Ab (EIA) Hep C Ab Signal/Cutoff Human Metapneumovir PCR Influenza Type A (PCR) Influenza Type B (PCR) M. pneumoniae (PCR) Parainfluenza 1 (PCR) Parainfluenza 2 (PCR) Parainfluenza 3 (PCR) Parainfluenza 4 (PCR) RSV (PCR) Entero/Rhino (PCR) SARS-CoV-2, RNA, NAAT Blood Type Blood Type Recheck O Positive Antibody Screen Antibody Identification Antibody ID Comment Antigen Identification Crossmatch 06/02/22 06/02/22 06/02/22 17:21 17:21 20:39 WBC RBC Hgb Hct MCV MCH MCHC RDW Std Deviation RDW Coeff of Vasu Plt Count MPV Immature Gran % (Auto) Neut % (Auto) Lymph % (Auto) Hardin % (Auto) Eos % (Auto) Baso % (Auto) Neut # (Auto) Lymph # (Auto) Hardin # (Auto) Eos # (Auto) Baso # (Auto) Immature Gran # (Auto) Absolute Nucleated RBC Nucleated RBC % (auto) Polychromasia PT INR Sodium Potassium Chloride Carbon Dioxide Anion Gap BUN Creatinine Est Cr Clr Drug Dosing Est GFR ( Amer) Est GFR (Non-Af Amer) BUN/Creatinine Ratio Glucose POC Glucose 71 Calcium Phosphorus Magnesium Iron TIBC Unsaturated IBC Transferrin % Sat Total Bilirubin Direct Bilirubin AST ALT Alkaline Phosphatase Troponin I High Sens B-Natriuretic Peptide Total Protein Albumin Globulin Albumin/Globulin Ratio Lipase Vitamin B12 Folate Adenovirus (PCR) Not Detected B. pertussis DNA (PCR) Not Detected B.parapertussis DNA PCR Not Detected C. pneumoniae DNA (PCR) Not Detected Coronavirus OC43 (PCR) Not Detected Coronavirus HKU1 (PCR) Not Detected Coronavirus 229E (PCR) Not Detected SARS-CoV-2 (PCR) Cancelled Not Detected Coronavirus NL63 (PCR) Not Detected Hepatitis C Ab (EIA) Hep C Ab Signal/Cutoff Human Metapneumovir PCR Not Detected Influenza Type A (PCR) Not Detected Influenza Type B (PCR) Not Detected M. pneumoniae (PCR) Not Detected Parainfluenza 1 (PCR) Not Detected Parainfluenza 2 (PCR) Not Detected Parainfluenza 3 (PCR) Not Detected Parainfluenza 4 (PCR) Not Detected RSV (PCR) Not Detected Entero/Rhino (PCR) Not Detected SARS-CoV-2, RNA, NAAT Blood Type Blood Type Recheck Antibody Screen Antibody Identification Antibody ID Comment Antigen Identification Crossmatch 06/02/22 06/02/22 06/02/22 21:55 21:56 22:17 WBC RBC Hgb Hct MCV MCH MCHC RDW Std Deviation RDW Coeff of Vasu Plt Count MPV Immature Gran % (Auto) Neut % (Auto) Lymph % (Auto) Hardin % (Auto) Eos % (Auto) Baso % (Auto) Neut # (Auto) Lymph # (Auto) Hardin # (Auto) Eos # (Auto) Baso # (Auto) Immature Gran # (Auto) Absolute Nucleated RBC Nucleated RBC % (auto) Polychromasia PT INR Sodium Potassium Chloride Carbon Dioxide Anion Gap BUN Creatinine Est Cr Clr Drug Dosing Est GFR ( Amer) Est GFR (Non-Af Amer) BUN/Creatinine Ratio Glucose POC Glucose 59 L* 59 L* 63 L* Calcium Phosphorus Magnesium Iron TIBC Unsaturated IBC Transferrin % Sat Total Bilirubin Direct Bilirubin AST ALT Alkaline Phosphatase Troponin I High Sens B-Natriuretic Peptide Total Protein Albumin Globulin Albumin/Globulin Ratio Lipase Vitamin B12 Folate Adenovirus (PCR) B. pertussis DNA (PCR) B.parapertussis DNA PCR C. pneumoniae DNA (PCR) Coronavirus OC43 (PCR) Coronavirus HKU1 (PCR) Coronavirus 229E (PCR) SARS-CoV-2 (PCR) Coronavirus NL63 (PCR) Hepatitis C Ab (EIA) Hep C Ab Signal/Cutoff Human Metapneumovir PCR Influenza Type A (PCR) Influenza Type B (PCR) M. pneumoniae (PCR) Parainfluenza 1 (PCR) Parainfluenza 2 (PCR) Parainfluenza 3 (PCR) Parainfluenza 4 (PCR) RSV (PCR) Entero/Rhino (PCR) SARS-CoV-2, RNA, NAAT Blood Type Blood Type Recheck Antibody Screen Antibody Identification Antibody ID Comment Antigen Identification Crossmatch 06/02/22 06/02/22 06/02/22 22:18 22:40 23:26 WBC RBC Hgb Hct MCV MCH MCHC RDW Std Deviation RDW Coeff of Vasu Plt Count MPV Immature Gran % (Auto) Neut % (Auto) Lymph % (Auto) Hardin % (Auto) Eos % (Auto) Baso % (Auto) Neut # (Auto) Lymph # (Auto) Hardin # (Auto) Eos # (Auto) Baso # (Auto) Immature Gran # (Auto) Absolute Nucleated RBC Nucleated RBC % (auto) Polychromasia PT INR Sodium Potassium Chloride Carbon Dioxide Anion Gap BUN Creatinine Est Cr Clr Drug Dosing Est GFR ( Amer) Est GFR (Non-Af Amer) BUN/Creatinine Ratio Glucose POC Glucose 63 L* 71 131 H Calcium Phosphorus Magnesium Iron TIBC Unsaturated IBC Transferrin % Sat Total Bilirubin Direct Bilirubin AST ALT Alkaline Phosphatase Troponin I High Sens B-Natriuretic Peptide Total Protein Albumin Globulin Albumin/Globulin Ratio Lipase Vitamin B12 Folate Adenovirus (PCR) B. pertussis DNA (PCR) B.parapertussis DNA PCR C. pneumoniae DNA (PCR) Coronavirus OC43 (PCR) Coronavirus HKU1 (PCR) Coronavirus 229E (PCR) SARS-CoV-2 (PCR) Coronavirus NL63 (PCR) Hepatitis C Ab (EIA) Hep C Ab Signal/Cutoff Human Metapneumovir PCR Influenza Type A (PCR) Influenza Type B (PCR) M. pneumoniae (PCR) Parainfluenza 1 (PCR) Parainfluenza 2 (PCR) Parainfluenza 3 (PCR) Parainfluenza 4 (PCR) RSV (PCR) Entero/Rhino (PCR) SARS-CoV-2, RNA, NAAT Blood Type Blood Type Recheck Antibody Screen Antibody Identification Antibody ID Comment Antigen Identification Crossmatch 06/03/22 06/03/22 06/03/22 00:13 05:25 05:25 WBC 6.43 RBC 3.49 L Hgb 9.1 L Hct 28.9 L MCV 82.8 MCH 26.1 MCHC 31.5 L RDW Std Deviation 57.1 H RDW Coeff of Vasu 18.9 H Plt Count 137 MPV 11.5 Immature Gran % (Auto) Neut % (Auto) Lymph % (Auto) Hardin % (Auto) Eos % (Auto) Baso % (Auto) Neut # (Auto) Lymph # (Auto) Hardin # (Auto) Eos # (Auto) Baso # (Auto) Immature Gran # (Auto) Absolute Nucleated RBC 0.02 Nucleated RBC % (auto) 0.3 Polychromasia PT INR Sodium 137 Potassium 4.1 Chloride 101 Carbon Dioxide 24 Anion Gap 12 H BUN 65 H Creatinine 3.52 H Est Cr Clr Drug Dosing 15.8 Est GFR ( Amer) 14.3 Est GFR (Non-Af Amer) 12.4 BUN/Creatinine Ratio 18.5 Glucose 132 H POC Glucose 171 H Calcium 9.4 Phosphorus 5.0 H Magnesium 2.9 H Iron TIBC Unsaturated IBC Transferrin % Sat Total Bilirubin 1.5 H Direct Bilirubin 0.8 H AST 138 H ALT 124 H Alkaline Phosphatase 116 H Troponin I High Sens B-Natriuretic Peptide Total Protein 6.5 Albumin 3.7 Globulin Albumin/Globulin Ratio Lipase Vitamin B12 Folate Adenovirus (PCR) B. pertussis DNA (PCR) B.parapertussis DNA PCR C. pneumoniae DNA (PCR) Coronavirus OC43 (PCR) Coronavirus HKU1 (PCR) Coronavirus 229E (PCR) SARS-CoV-2 (PCR) Coronavirus NL63 (PCR) Hepatitis C Ab (EIA) Hep C Ab Signal/Cutoff Human Metapneumovir PCR Influenza Type A (PCR) Influenza Type B (PCR) M. pneumoniae (PCR) Parainfluenza 1 (PCR) Parainfluenza 2 (PCR) Parainfluenza 3 (PCR) Parainfluenza 4 (PCR) RSV (PCR) Entero/Rhino (PCR) SARS-CoV-2, RNA, NAAT Blood Type Blood Type Recheck Antibody Screen Antibody Identification Antibody ID Comment Antigen Identification Crossmatch 06/03/22 06/03/22 06/03/22 05:25 05:25 05:25 WBC RBC Hgb 9.1 L Hct 29.0 L MCV MCH MCHC RDW Std Deviation RDW Coeff of Vasu Plt Count MPV Immature Gran % (Auto) Neut % (Auto) Lymph % (Auto) Hardin % (Auto) Eos % (Auto) Baso % (Auto) Neut # (Auto) Lymph # (Auto) Hardin # (Auto) Eos # (Auto) Baso # (Auto) Immature Gran # (Auto) Absolute Nucleated RBC Nucleated RBC % (auto) Polychromasia PT 19.1 H INR 1.9 H Sodium Potassium Chloride Carbon Dioxide Anion Gap BUN Creatinine Est Cr Clr Drug Dosing Est GFR ( Amer) Est GFR (Non-Af Amer) BUN/Creatinine Ratio Glucose POC Glucose Calcium Phosphorus Magnesium Iron TIBC Unsaturated IBC Transferrin % Sat Total Bilirubin Direct Bilirubin AST ALT Alkaline Phosphatase Troponin I High Sens B-Natriuretic Peptide Total Protein Albumin Globulin Albumin/Globulin Ratio Lipase Vitamin B12 Folate Adenovirus (PCR) B. pertussis DNA (PCR) B.parapertussis DNA PCR C. pneumoniae DNA (PCR) Coronavirus OC43 (PCR) Coronavirus HKU1 (PCR) Coronavirus 229E (PCR) SARS-CoV-2 (PCR) Coronavirus NL63 (PCR) Hepatitis C Ab (EIA) Pending Hep C Ab Signal/Cutoff Pending Human Metapneumovir PCR Influenza Type A (PCR) Influenza Type B (PCR) M. pneumoniae (PCR) Parainfluenza 1 (PCR) Parainfluenza 2 (PCR) Parainfluenza 3 (PCR) Parainfluenza 4 (PCR) RSV (PCR) Entero/Rhino (PCR) SARS-CoV-2, RNA, NAAT Blood Type Blood Type Recheck Antibody Screen Antibody Identification Antibody ID Comment Antigen Identification Crossmatch 06/03/22 06/03/22 06/03/22 05:51 07:48 10:26 WBC RBC Hgb 9.0 L Hct 28.8 L MCV MCH MCHC RDW Std Deviation RDW Coeff of Vasu Plt Count MPV Immature Gran % (Auto) Neut % (Auto) Lymph % (Auto) Hardin % (Auto) Eos % (Auto) Baso % (Auto) Neut # (Auto) Lymph # (Auto) Hardin # (Auto) Eos # (Auto) Baso # (Auto) Immature Gran # (Auto) Absolute Nucleated RBC Nucleated RBC % (auto) Polychromasia PT INR Sodium Potassium Chloride Carbon Dioxide Anion Gap BUN Creatinine Est Cr Clr Drug Dosing Est GFR ( Amer) Est GFR (Non-Af Amer) BUN/Creatinine Ratio Glucose POC Glucose 131 H 136 H Calcium Phosphorus Magnesium Iron TIBC Unsaturated IBC Transferrin % Sat Total Bilirubin Direct Bilirubin AST ALT Alkaline Phosphatase Troponin I High Sens B-Natriuretic Peptide Total Protein Albumin Globulin Albumin/Globulin Ratio Lipase Vitamin B12 Folate Adenovirus (PCR) B. pertussis DNA (PCR) B.parapertussis DNA PCR C. pneumoniae DNA (PCR) Coronavirus OC43 (PCR) Coronavirus HKU1 (PCR) Coronavirus 229E (PCR) SARS-CoV-2 (PCR) Coronavirus NL63 (PCR) Hepatitis C Ab (EIA) Hep C Ab Signal/Cutoff Human Metapneumovir PCR Influenza Type A (PCR) Influenza Type B (PCR) M. pneumoniae (PCR) Parainfluenza 1 (PCR) Parainfluenza 2 (PCR) Parainfluenza 3 (PCR) Parainfluenza 4 (PCR) RSV (PCR) Entero/Rhino (PCR) SARS-CoV-2, RNA, NAAT Blood Type Blood Type Recheck Antibody Screen Antibody Identification Antibody ID Comment Antigen Identification Crossmatch 06/03/22 06/03/22 11:31 Unknown WBC RBC Hgb Hct MCV MCH MCHC RDW Std Deviation RDW Coeff of Vasu Plt Count MPV Immature Gran % (Auto) Neut % (Auto) Lymph % (Auto) Hardin % (Auto) Eos % (Auto) Baso % (Auto) Neut # (Auto) Lymph # (Auto) Hardin # (Auto) Eos # (Auto) Baso # (Auto) Immature Gran # (Auto) Absolute Nucleated RBC Nucleated RBC % (auto) Polychromasia PT INR Sodium Potassium Chloride Carbon Dioxide Anion Gap BUN Creatinine Est Cr Clr Drug Dosing Est GFR ( Amer) Est GFR (Non-Af Amer) BUN/Creatinine Ratio Glucose POC Glucose 166 H Calcium Phosphorus Magnesium Iron TIBC Unsaturated IBC Transferrin % Sat Total Bilirubin Direct Bilirubin AST ALT Alkaline Phosphatase Troponin I High Sens B-Natriuretic Peptide Total Protein Albumin Globulin Albumin/Globulin Ratio Lipase Vitamin B12 Folate Adenovirus (PCR) B. pertussis DNA (PCR) B.parapertussis DNA PCR C. pneumoniae DNA (PCR) Coronavirus OC43 (PCR) Coronavirus HKU1 (PCR) Coronavirus 229E (PCR) SARS-CoV-2 (PCR) Coronavirus NL63 (PCR) Hepatitis C Ab (EIA) Hep C Ab Signal/Cutoff Human Metapneumovir PCR Influenza Type A (PCR) Influenza Type B (PCR) M. pneumoniae (PCR) Parainfluenza 1 (PCR) Parainfluenza 2 (PCR) Parainfluenza 3 (PCR) Parainfluenza 4 (PCR) RSV (PCR) Entero/Rhino (PCR) SARS-CoV-2, RNA, NAAT NEGATIVE Blood Type Blood Type Recheck Antibody Screen Antibody Identification Antibody ID Comment Antigen Identification Crossmatch ECG Additional Comments: EKG 06/02/2021 Sinus rhythm with first-degree AV block, incomplete right bundle branch block, rate 69 bpm
--- NOTE | 2022-06-03 13:34 | Hospitalist Progress Note ---
Date of Service June 03, 2022 Assessment & Plan (1) GI bleed: Plan Acute on chronic anemia Likely upper GI bleed Patient did came in with tiredness/lethargy for 4 to 5 days ago [employer], associated with dark stool for about the same duration. Hemoglobin at presentation 7.2, upon outpatient chart review her hemoglobin around 9, FOBT was positive in the ED. N.p.o., PPI drip, blood transfusion for hemoglobin less than 8.0 or symptomatic anemia. Status post 2 unit of PRBC and the hemoglobin remains around 9-we will monitor CBC Awaiting GI evaluation Acute on chronic renal failure on CKD stage IV Admitting creatinine of 3.76, creatinine around 2.4-2.8 upon outpatient chart review. Patient received 500 mL IV fluid in the ED, will be receiving blood, BMP in AM. Avoid nephrotoxic's. Appreciate nephrology input and recommendation IV fluid has been stopped and she will be getting Lasix IV as advised Her creatinine seems to be around her baseline-we will monitor PRP Acute on chronic heart failure with reduced ejection fraction History of significant CAD status post CABG and multiple stent placement. CABG was done at the age of 39 with a strong family history of heart disease Patient was noted to have crackles at PCP office, admitting chest x-ray with congestion, on exam BLE pitting edema. admitting EKG with A-fib with rate controlled Patient with worsening renal function, will hold nephrotoxics, cardiology consult, Telemetry monitoring. Appreciate cardiology input and recommendation Has been getting intravenous Lasix Likely congestive hepatopathy: L iver enzymes are elevated, INR elevated. Monitor labs in AM. If not improving with improving CHF, consider discussion with GI. We will get an ultrasound of the liver to rule out any possibility of cholelithiasis T2DM: On Jardiance/Trulicity/NovoLog insulin/insulin pump. We will hold home medication, patient will be n.p.o. for now, pharmacy consult, sliding scale insulin while in hospital. Hold on long acting as pt npo. Hold pt's insulin pump while in hospital. Other chronic medical conditions: Moderate persistent asthma/ HTN/HLD--- patient does not use her inhalers medications as often, resume other home meds as able. DNR/DNI DVT prophylaxis: SCDs, GI bleed. Admission and Anticipated Discharge Date Admission Date: June 02, 2022 Subjective 06/03/2022 The patient was seen and examined in telemetry unit She was admitted with lethargy, tiredness and weakness and swelling of the legs noted to have very low hemoglobin Has had 1 episode of black stool on the other day no history of hematemesis Has been feeling much better since admission Denies any chest pain or palpitation Review of Systems Review of Systems: All systems reviewed and are unremarkable except as noted below Respiratory: No shortness of breath at rest Cardiovascular: Additional Comments: No palpitation and/or chest pain Physical Exam Physical Exam: Lying in bed comfortably Constitutional: well developed, well nourished, + ill appearing and + obese Eyes: PERRL, conjunctivae normal, anicteric sclerae ENMT: external ear and nose normal, oropharynx normal Neck: trachea midline, no thyromegaly Respiratory: no respiratory distress Auscultation: + diminished lung sounds and + crackles (Bibasilar crackles) Cardiovascular: Rate/Rhythm: regular rate and regular rhythm Heart Sounds: normal S1, normal S2 and + murmur Extremities: + edema (1+ edema bilaterally) Gastrointestinal (Abdomen): Inspection/Auscultation: normal bowel sounds; abdomen not distended Percussion/Palpation: abdomen soft; abdomen nontender Musculoskeletal: No acute arthritis involving any joint Neurologic: normal touch/pain/proprioception and moves all extremities; no focal motor deficits Psychiatric: A+Ox3, euthymic affect Lymphatic: no cervical or axillary lymphadenopathy Results & Data Results & Data Vital Signs (Past 12 Hours) Vital Signs Temp Pulse Pulse Pulse Resp BP BP 06/03/22 11:30 36.5 C 72 18 115/58 L 06/03/22 07:30 36.9 C 71 18 124/75 06/03/22 06:15 72 06/03/22 04:13 36.4 C L 65 16 136/81 06/03/22 03:29 36.4 C L 65 15 142/81 H 06/03/22 03:26 36.8 C 68 18 125/71 06/03/22 02:29 36.3 C L 65 14 121/71 06/03/22 01:59 36.6 C 61 15 112/56 L 06/03/22 01:44 36.3 C L 65 14 136/78 Pulse Ox O2 Del Method 06/03/22 11:30 99 Room Air 06/03/22 07:30 98 Room Air 06/03/22 06:15 06/03/22 04:13 98 06/03/22 03:29 99 06/03/22 03:26 99 Room Air 06/03/22 02:29 98 06/03/22 01:59 95 06/03/22 01:44 100 Laboratory Results Short CBC 06/02/22 06/02/22 06/03/22 Range/Units 14:10 16:46 05:25 WBC 8.42 6.43 (4.8-10.8) K/ul Hgb 7.2 L 6.9 L* 9.1 L (12.0-16.0) g/dl Hct 23.0 L 21.9 L 28.9 L (37.0-47.0) % Plt Count 163 137 (130-400) K/uL 06/03/22 06/03/22 Range/Units 05:25 10:26 WBC (4.8-10.8) K/ul Hgb 9.1 L 9.0 L (12.0-16.0) g/dl Hct 29.0 L 28.8 L (37.0-47.0) % Plt Count (130-400) K/uL BMP 06/02/22 06/03/22 14:10 05:25 Sodium 138 137 Potassium 3.5 4.1 Chloride 101 101 Carbon Dioxide 27 24 BUN 73 H 65 H Creatinine 3.76 H 3.52 H Glucose 57 L 132 H Calcium 9.9 9.4 Liver Function 06/02/22 06/03/22 Range/Units 14:10 05:25 Total Bilirubin 1.3 H 1.5 H (0.2-1.0) mg/dl Direct Bilirubin 0.8 H (0-0.2) mg/dl AST 145 H 138 H (13-39) U/L ALT 115 H 124 H (7-52) U/L Alkaline Phosphatase 125 H 116 H (34-104) U/L Albumin 3.9 3.7 (3.4-5.0) gm/dl Medications Administered Current Inpatient Medications Acetaminophen (Acetaminophen 325 Mg Tab) 650 mg PO Q4H PRN PRN Reason: Pain or Fever Stop: 07/02/22 16:35 Al Hydrox/Mg Hydrox/Simethicone (Aluminum/Magnesium Susp 30 Ml Udc) 15 ml PO Q 4H PRN PRN Reason: Dyspepsia Stop: 07/02/22 16:35 Allopurinol (Allopurinol 300 Mg Tab) 300 mg PO QAM [facility] Stop: 07/03/22 08:59 Last Admin: 06/03/22 08:08 Dose: 300 mg Anastrozole (Anastrozole 1 Mg Tab) 1 mg PO QAM [facility] Stop: 07/03/22 08:59 Last Admin: 06/03/22 08:08 Dose: 1 mg Carvedilol (Carvedilol 12.5 Mg Tab) 12.5 mg PO BID [facility] Stop: 07/02/22 21:09 Last Admin: 06/03/22 08:07 Dose: 12.5 mg Dextrose (Dextrose 50% 50 Ml Syringe) 25 - 50 ml IV UD PRN; Protocol PRN Reason: Hypoglycemia Protocol Stop: 07/02/22 16:35 Folic Acid (Folic Acid 1 Mg Tab) 1 mg PO QAM [facility]LA[facility] Stop: 07/03/22 08:59 Last Admin: 06/03/22 08:07 Dose: 1 mg Glucagon (Glucagon For Inj 1 Mg Vial) 1 mg SQ UD PRN; Protocol PRN Reason: Hypoglycemia Protocol Stop: 07/02/22 16:35 Last Admin: 06/02/22 22:24 Dose: 1 mg Glucose (Glucose 10 Tab/Tube) 4 - 8 tab PO UD PRN; Protocol PRN Reason: Hypoglycemia Treatment Stop: 07/02/22 16:35 Glucose (Glucose 40% Gel 15 Gm Tube) 15 - 30 gm PO UD PRN; Protocol PRN Reason: Hypoglycemia Protocol Stop: 07/02/22 16:35 Pantoprazole Sodium 40 mg/ (Syringe) 10 mls @ 5 mls/min IV BID [facility] Stop: 07/02/22 16:34 Last Admin: 06/03/22 09:51 Dose: 5 mls/min Insulin Aspart (Insulin Aspart Per Unit) 0 units SC Q6H [facility] Stop: 07/02/22 18:44 Last Admin: 06/03/22 13:04 Dose: Not Given Magnesium Hydroxide (Magnesium Hydroxide Susp 30 Ml Udc) 30 ml PO Q12H PRN PRN Reason: Constipation Stop: 07/02/22 16:35 Last Admin: 06/03/22 08:19 Dose: 30 ml Miscellaneous (Carbohydrates For Hypoglycemia ) 15 - 30 gm PO UD PRN PRN Reason: Hypoglycemia Protocol Stop: 07/02/22 16:35 Last Admin: 06/02/22 21:58 Dose: 15 gm Miscellaneous (Vericiguat [Verquvo]: Order Awaiting Action) 1 each N/A QS [facility] Stop: 07/03/22 07:59 Last Admin: 06/03/22 08:13 Dose: Not Given Miscellaneous Information (Pharmacy Glycemic Mgmt Consult) 1 each N/A UD PRN PRN Reason: Consult Stop: 07/02/22 16:35 Nitroglycerin (Nitroglycerin Sl 0.4 Mg/Tab Tab) 0.4 mg SL UD PRN PRN Reason: Chest Pain Stop: 07/02/22 21:09 Ondansetron HCl (Ondansetron Inj 2 Mg/Ml 2 Ml Vial) 4 mg IV Q6H PRN PRN Reason: Nausea Stop: 07/02/22 16:35 Polyethylene Glycol (Polyethylene (Miralax) 17 Gm Pack) 17 gm PO DAILY PRN PRN Reason: Constipation Stop: 07/02/22 16:35 Ranolazine (Ranolazine 500 Mg Er Tab) 500 mg PO BID [facility] Stop: 07/02/22 21:09 Last Admin: 06/03/22 08:07 Dose: 500 mg Rosuvastatin Calcium (Rosuvastatin Calcium 20 Mg Tab) 40 mg PO HS [facility] Stop: 07/02/22 21:09 Last Admin: 06/02/22 22:43 Dose: 40 mg Vitamin D (Cholecalciferol 1,000 Units 25 Mcg Tab) 2,000 units PO QAM [facility] Stop: 07/03/22 08:59 Last Admin: 06/03/22 08:08 Dose: 2,000 units
--- NOTE | 2022-06-03 15:15 | Gastrointestinal Consultation ---
Date of Consultation June 03, 2022 Assessment & Plan (1) Symptomatic anemia: Plan anemia possibly from a GI bleed, no overt bleeding at this time and hgb is now back at baseline s/p transfusion. Recs: --would monitor at this time for now as no signs of overt GI bleeding --continue protonix BID --low residue diet now and advance as tolerated --can consider outpt EGD if she continues to recover --if shows signs of overt GI bleeding or hgb persistently worsens can consider EGD inpatient Thank you for allowing me to participate in the care of this patient. History of Present Illness Attending Physician: Leonila Carroll MD History of Present Illness 71 yo female here with worsening anemia, she has afib on eliquis, baseline hgb around 9 as outpt but presented at 7.2. FOBT was positive. On protonix BID currently, no hematochezia nor hematemesis, feels hungry. She is on protonix daily as an outpatient for multiple years as well. CBC and CMP reviewed. Allergies Allergy/AdvReac Type Severity Reaction Status Date / Time tramadol Allergy Severe Anaphylaxis Verified 06/02/22 16:16 dopamine Allergy Unknown CAN'T Verified 06/02/22 16:16 REMEMBER morphine AdvReac Severe SEVERE Verified 06/02/22 16:16 VOMITING--"SICKER THAN A DOG" gabapentin AdvReac Intermediate INCREASED Verified 06/02/22 16:16 LEG EDEMA lisinopril AdvReac Intermediate Cough Verified 06/02/22 16:16 rofecoxib AdvReac Intermediate SWELLING Verified 06/02/22 16:16 OF ANKLES/FEET Home Medications Medication Instructions Recorded Confirmed Type acetaminophen 500 mg tablet 1,000 mg PO BID PRN Pain 06/02/22 06/02/22 History (Tylenol Extra Strength) albuterol sulfate 90 mcg/actuation 2 puff inhalation Q4H PRN 06/02/22 06/02/22 History aerosol inhaler (ProAir HFA) Shortness Of Breath Or Wheezing allopurinol 300 mg tablet 300 mg PO QAM 06/02/22 06/02/22 History anastrozole 1 mg tablet 1 mg PO QAM 06/02/22 06/02/22 History apixaban 5 mg tablet (Eliquis) 5 mg PO BID 06/02/22 06/02/22 History bumetanide 1 mg tablet 1 mg PO BID 06/02/22 06/02/22 History carvedilol 12.5 mg tablet 12.5 mg PO BID 06/02/22 06/02/22 History cholecalciferol (vitamin D3) 50 50 mcg PO QAM 06/02/22 06/02/22 History mcg (2,000 unit) capsule (Vitamin D3) dulaglutide 3 mg/0.5 mL 3 mg subcut WK 06/02/22 06/02/22 History subcutaneous pen injector (Trulicity) empagliflozin 10 mg tablet 10 mg PO QAM 06/02/22 06/02/22 History fluticasone propionate 230 2 puff inhalation BID 06/02/22 06/02/22 History mcg-salmeterol 21 mcg/actuation HFA inhaler (Advair HFA) fluticasone propionate 50 2 spray intranasal HS 06/02/22 06/02/22 History mcg/actuation nasal spray,suspension folic acid 1 mg tablet 1 mg PO QAM 06/02/22 06/02/22 History insulin aspart U-100 100 unit/mL 1 sliding scale dose continuous 06/02/22 06/02/22 History subcutaneous solution subcutaneous infusion CONTINOUS lorazepam 0.5 mg tablet 0.5 mg PO HS PRN Insomnia 06/02/22 06/02/22 History nitroglycerin 0.4 mg sublingual 0.4 mg sublingual DIRECTED PRN 06/02/22 06/02/22 History tablet (Nitrostat) Chest Pain pantoprazole 20 mg tablet,delayed 20 mg PO DAILYBB 06/02/22 06/02/22 History release ranolazine 500 mg tablet,extended 500 mg PO BID 06/02/22 06/02/22 History release,12 hr rosuvastatin 40 mg tablet (Crestor) 40 mg PO HS 06/02/22 06/02/22 History trazodone 100 mg tablet 100 mg PO HS PRN Sleep 06/02/22 06/02/22 History vericiguat 10 mg tablet (Verquvo) 10 mg PO DAILY 06/02/22 06/02/22 History Patient History Social History Smoking Status: Former smoker Second Hand Exposure: No; Do You Dip or Chew Tobacco: No; Hx Alcohol Use: No Hx Substance Use: No Preferred Language: [place] Citizen Communication Ability: Effective Flavoring Maker Required: No Beliefs That Will Affect Care: None Current Living Situation: Alone Feels Safe at Home: Yes Safety Concerns: Feels Safe At This Time Assistive Devices: None Review of Systems Constitutional: no fever, no chills and no weight loss Eyes: as per Subjective / HPI Ear, Nose, Mouth, Throat: as per Subjective / HPI Respiratory: no dyspnea and no dyspnea on exertion Cardiovascular: no chest pain and no palpitations Gastrointestinal: as per Subjective / HPI Musculoskeletal: no joint pain and no swelling Integumentary: no rash and no lesions Neurologic: no numbness and no paresthesia Psychiatric: no depression and no anxiety Endocrine: no fatigue Hematologic / Lymphatic: no easy bleeding and no easy bruising Physical Exam Constitutional: WD/WN, vitals as above Eyes: EOM intact bilaterally Neck: normal visual inspection Respiratory: normal respiratory effort, lungs clear to auscultation Cardiovascular: RRR, no murmur, no edema Gastrointestinal (Abdomen): Inspection/Auscultation: abdomen normal to inspection; abdomen not distended Percussion/Palpation: abdomen soft; abdomen nontender and no hepatosplenomegaly Musculoskeletal: Extremities: no cyanosis Gait: normal gait Skin: no rashes, warm and dry Neurologic: moves all extremities Psychiatric: A+Ox3, euthymic affect Results & Data Vital Signs (Past 12 Hours) Vital Signs Temp Pulse Pulse Pulse Resp BP BP 06/03/22 11:30 36.5 C 72 18 115/58 L 06/03/22 07:30 36.9 C 71 18 124/75 06/03/22 06:15 72 06/03/22 04:13 36.4 C L 65 16 136/81 06/03/22 03:29 36.4 C L 65 15 142/81 H 06/03/22 03:26 36.8 C 68 18 125/71 Pulse Ox O2 Del Method 06/03/22 11:30 99 Room Air 06/03/22 07:30 98 Room Air 06/03/22 06:15 06/03/22 04:13 98 06/03/22 03:29 99 06/03/22 03:26 99 Room Air PG Care Time/CCT Total # of Minutes Spent Total Time Spent with Patient: Total time spent is greater than 50% in coordination of care (as documented) at patient's floor/unit and/or counseling patient: Coding Level of Care Code 47820 IN/OBS CONSULT LVL 4,60M Diagnoses Symptomatic anemia D64.9
--- NOTE | 2022-06-03 17:03 | Ultrasound Report ---
US liver CLINICAL HISTORY: R/O stones in GB and CBD COMPARISON STUDY: No previous studies for comparison. FINDINGS: No hepatic lesions are identified. There is no biliary ductal dilatation. The common bile d uct measures 4 mm in caliber. No common bile duct calculi are identified by sonography. The pancreas is obscured by overlying bowel gas. A 1.4 cm gallstone within the gallbladder is noted. There is no g allbladder wall thickening. There is no sonographic Gómez sign. No right hydronephrosis. IMPRESSION: 1. Cholelithiasis. No evidence for acute cholecystitis. 2. No biliary ductal dilatation. ACT 112: Negative or not required by law. Electronically signed by: Errol Ortiz M.D. 06/03/2022 5:02 PM
[2022-06-03] MEDS: ROSUVASTATIN CALCIUM 20 MG TAB PO SCH (20:51)
[2022-06-04] MEDS ORDERED: INSULIN ASPART PER UNIT CHARGE SC SCH
[2022-06-04] MEDS ORDERED: LANTUS PER UNIT CHARGE SQ ONE
--- NOTE | 2022-06-04 00:07 | Pharmacy Report ---
Pharmacy Glycemic Short Note 2 - Date of Service June 03, 2022 - Glycemic Short BSG Results (Last 24 hours): 06/03/22 06/03/22 06/03/22 00:13 05:25 05:51 Glucose 132 H POC Glucose 171 H 131 H 06/03/22 06/03/22 06/03/22 07:48 11:31 16:55 Glucose POC Glucose 136 H 166 H 230 H 06/03/22 06/03/22 20:05 23:37 Glucose POC Glucose 299 H 279 H OUTPATIENT ANTIDIABETIC REGIMEN: * Novolog insulin pump * Basal: 1.6 units/hr (38.4 units/day) * Bolus: 15 units with breakfast, 20 units with lunch, 15 units with dinner, 5 units with evening snack * Carb ratio: 1 unit per 3.9gm CHO consumed * Correction factor: 10 mg/dL/unit (goal 90-140 mg/dL) * Trulicity 4.5mg SQ weekly * Jardiance 10mg daily * HbA1c: likely unreliable in ESRD patients d/t interactions between the A1c analyzing technique and high levels of urea in ESRD, reduced RBC life span, iron deficiency anemia, and EPO administration. HbA1c > 7.5% in ESRD patient may overestimate the extent of hyperglycemia in ESRD patients. ASSESSMENT: * Ms States is a diabetic F admitted last night with GI bleed, ALEXIS on CKD. * On admission, patient was hypoglycemic (BSG 57mg/dL). * Patient's home DM meds were held on admission and patient was put on Novolog coverage. * BSGs have since increased, and pt became hyperglycemic this evening (BSG 299mg/dL at HS). * Lantus was resumed tonight and Novolog parameters have been tightened to better match patient's insulin use as an outpt. * Pharmacy will continue to follow and adjust regimen as indicated. PLAN FOR INPATIENT GLYCEMIC CONTROL: * Hold outpatient diabetes medications * Basal insulin * Lantus 15 units SQ x1 dose tonight * will re-evaluate in the morning * Bolus insulin * NovoLog per scale ACHS or Q6hrs while NPO * Goal Range: Low 120 mg/dL - High 160 mg/dL * Correction Factor: 15 mg/dL/unit * Nutritional / Prandial insulin per carb ratio of 1 unit per 5 grams CHO consumed
[2022-06-04] MEDS: INSULIN ASPART PER UNIT CHARGE SC SCH ×7 (00:11→18:12)
[2022-06-04] MEDS ORDERED: PROMETHAZINE HCL 6.25 MG in SODIUM CHLORIDE 0.9% 50 ML IV PRN (00:55)
[2022-06-04] MEDS ORDERED: ATROPINE SULFATE 0.1 MG/ML 5ML SYR IV PRN (01:43)
[2022-06-04 06:30] LABS: Basophils # (auto) 0.03 K/uL (0-0.2); Basophils % (auto) 0.5 %; Eosinophils # (auto) 0.08 K/uL (0-0.50); Eosinophils % (auto) 1.2 %; Hematocrit (blood only) 27.5 % (37.0-47.0); Hemoglobin 8.7 g/dl (12.0-16.0); Immature Granulocytes # (auto) 0.04 K/uL (0.01-0.20); Immature Granulocytes % (auto) 0.6 %; Lymphocytes # (auto) 0.41 K/uL (1.2-3.4); Lymphocytes % (auto) 6.3 %; Mean Corpuscular Hemoglobin 26.1 pg (25.0-34.0); Mean Corpuscular Hgb Conc 31.6 g/dL (32.0-36.0); Mean Corpuscular Volume 82.6 fL (80.0-100.0); Mean Platelet Volume 12.8 fL (9.4-12.4); Monocytes # (auto) 0.72 K/uL (0.11-0.59); Neutrophils # (auto) 5.25 K/uL (1.40-6.50); Neutrophils % (auto) 80.4 %; Nucleated RBC # (auto) 0.04 K/uL (0-0.12); Nucleated RBC % (auto) 0.6 %; Platelet Count 118 K/uL (130-400); RDW Coefficient of Variation 18.9 % (11.5-14.5); RDW Standard Deviation 57.4 fL (36.4-46.3); Red Blood Count 3.33 M/uL (4.20-5.40); White Blood Count 6.53 K/ul (4.8-10.8)
[2022-06-04 06:36] LABS: BUN Creatinine Ratio 19.4 (10-20); Calcium 9.3 mg/dl (8.5-10.1); Creatinine Clr Calc Pharmacy 14.1 ml/min; Est GFR (African American) 12.8 ml/min; Magnesium 3.4 mg/dl (1.7-2.4); Potassium 4.5 mmol/L (3.5-5.1)
[2022-06-04 06:47] LABS: Troponin I High Sensitivity 74.2 pg/ml (0-14)
--- NOTE | 2022-06-04 07:28 | Communication Note ---
Date of Service: June 04, 2022 Last night patient was having bradycardia on monitor. HR hitting 30's. at one time patient was somewhat dizzy. Saw the patient . alert and oriented. No sym ptoms at that time. BP ok. Did ekg which showed wide QRS rhythm with frequent pvc at rate of 60 and qtc 508. To avoid qt prolonging drug. Patient had pacemaker . Pacemaker interrogation ordered. electrolytes ok. troponin increased from previous. ordered repeat troponin. held Coreg. ordered atropine prn .As still having bradycardia requested for pace pads.Cardio on board. notified am team.
--- NOTE | 2022-06-04 07:44 | Electrocardiogram Report ---
Test Reason : Blood Pressure : / mmHG Vent. Rate : 060 BPM Atrial Rate : 084 BPM P-R Int : 000 ms QRS Dur : 130 ms QT Int : 508 ms P-R-T Axes : 000 -32 095 degrees QTc Int : 508 ms Sinus bradycardia with prematureventricular complexes Right bundle branch block Left axis deviation Inferior infarct , age undetermined Cannot rule out Anterior infarct , age undetermined Abnormal ECG Confirmed by Rick Mena ([id number]) on 06/04/2022 7:43:44 AM Referred By: Gabby Maddox Confirmed By:Warren Mena
[2022-06-04] MEDS: allopurinoL 300 MG TAB PO SCH (09:13)
[2022-06-04] MEDS: CHOLECALCIFEROL 1,000 UNITS 25 MCG TAB PO SCH (09:13)
[2022-06-04] MEDS: ANASTROZOLE 1 MG TAB PO SCH (09:13)
[2022-06-04] MEDS: PANTOprazole 40 MG in SYRINGE 0 ML IV SCH ×2 (09:13→20:28)
[2022-06-04] MEDS: FOLIC ACID 1 MG TAB PO SCH (09:14)
[2022-06-04] MEDS ORDERED: PHARMACY GLYCEMIC MGMT CONSULT PRN (11:31)
--- NOTE | 2022-06-04 11:41 | Cardiology Progress Note ---
Date of Service June 04, 2022 Assessment & Plan (1) GI bleed: (2) Ischemic cardiomyopathy: (3) CKD (chronic kidney disease), stage IV: (4) Obstructive sleep apnea: (5) ICD (implantable cardioverter-defibrillator), single, in situ: Plan: Pacing device set at backup VVI at 40 bpm Plan Very complex 71-year-old female with diffuse vascular disease and ischemic cardiomyopathy as well outlined above who presents with signs and symptoms of weakness fatigue and marked anemia. Possible upper GI bleed Clinical symptoms have improved following transfusion Patient with complex cardiac anatomy and chronic heart failure and angina pectoris but stable historically. On anticoagulation due to paroxysmal atrial fibrillation Recommendations: GI evaluation noted, hemoglobin stable overnight. Question source of anemia and acute blood loss versus chronic gradual depletion Would consider resuming apixaban in 7 to 10 days Would use lower dosing 2.5 mg twice per day on restart We will defer diuretic usage to nephrology recommendations. Exam not consistent with profound volume overload and clinically has responded to transfusion Continue prehospital therapies of carvedilol, rosuvastatin Hold Ranexa given degree of renal insufficiency present Admission and Anticipated Discharge Date Admission Date: June 02, 2022 Subjective Patient seen and examined, chart, medications, telemetry reviewed. Feels improved since hospitalization. No shortness of breath or chest discomfort. Predominant intervention was transfusion with single dose of additional IV furosemide. No overt bleeding Physical Exam Constitutional: + obese; no acute distress Eyes: PERRL, conjunctivae normal, anicteric sclerae ENMT: external ear and nose normal, oropharynx normal Neck: trachea midline, no thyromegaly + thick neck Respiratory: Auscultation: + diminished lung sounds and + crackles (Basilar) Cardiovascular: Rate/Rhythm: regular rate and regular rhythm Vessels: no JVD Extremities: + edema (1+) Gastrointestinal (Abdomen): normal bowel sounds, soft, nontender, no hepatosplenomegaly Results & Data Vital Signs (Past 12 Hours) Vital Signs Temp Pulse Pulse Resp BP BP Pulse Ox 06/04/22 11:23 36.6 C 66 16 110/69 95 06/04/22 07:49 36.5 C 52 L 16 126/63 97 06/04/22 05:55 42 L 06/04/22 04:56 36.3 C L 59 L 15 111/63 99 06/04/22 03:06 36.3 C L 57 L 17 109/54 L 96 06/04/22 00:43 52 L 106/51 L O2 Del Method 06/04/22 11:23 Room Air 06/04/22 07:49 Room Air 06/04/22 05:55 06/04/22 04:56 Room Air 06/04/22 03:06 Room Air 06/04/22 00:43 Laboratory Results Laboratory Results - last 24 hr 06/03/22 06/03/22 06/03/22 05:25 11:31 16:55 WBC RBC Hgb Hct MCV MCH MCHC RDW Std Deviation RDW Coeff of Vasu Plt Count MPV Immature Gran % (Auto) Neut % (Auto) Lymph % (Auto) Knox % (Auto) Eos % (Auto) Baso % (Auto) Neut # (Auto) Lymph # (Auto) Knox # (Auto) Eos # (Auto) Baso # (Auto) Immature Gran # (Auto) Absolute Nucleated RBC Nucleated RBC % (auto) Sodium Potassium Chloride Carbon Dioxide Anion Gap BUN Creatinine Est Cr Clr Drug Dosing Est GFR ( Amer) Est GFR (Non-Af Amer) BUN/Creatinine Ratio Glucose POC Glucose 166 H 230 H Calcium Magnesium Troponin I High Sens Hepatitis C Ab (EIA) NON-REACTIVE Hep C Ab Signal/Cutoff <0.02 SARS-CoV-2, RNA, NAAT 06/03/22 06/03/22 06/03/22 20:05 23:37 Unknown WBC RBC Hgb Hct MCV MCH MCHC RDW Std Deviation RDW Coeff of Vasu Plt Count MPV Immature Gran % (Auto) Neut % (Auto) Lymph % (Auto) Knox % (Auto) Eos % (Auto) Baso % (Auto) Neut # (Auto) Lymph # (Auto) Knox # (Auto) Eos # (Auto) Baso # (Auto) Immature Gran # (Auto) Absolute Nucleated RBC Nucleated RBC % (auto) Sodium Potassium Chloride Carbon Dioxide Anion Gap BUN Creatinine Est Cr Clr Drug Dosing Est GFR ( Amer) Est GFR (Non-Af Amer) BUN/Creatinine Ratio Glucose POC Glucose 299 H 279 H Calcium Magnesium Troponin I High Sens Hepatitis C Ab (EIA) Hep C Ab Signal/Cutoff SARS-CoV-2, RNA, NAAT NEGATIVE 06/04/22 06/04/22 06/04/22 05:38 05:38 07:35 WBC 6.53 RBC 3.33 L Hgb 8.7 L Hct 27.5 L MCV 82.6 MCH 26.1 MCHC 31.6 L RDW Std Deviation 57.4 H RDW Coeff of Vasu 18.9 H Plt Count 118 L MPV 12.8 H Immature Gran % (Auto) 0.6 Neut % (Auto) 80.4 Lymph % (Auto) 6.3 Knox % (Auto) 11.0 Eos % (Auto) 1.2 Baso % (Auto) 0.5 Neut # (Auto) 5.25 Lymph # (Auto) 0.41 L Knox # (Auto) 0.72 H Eos # (Auto) 0.08 Baso # (Auto) 0.03 Immature Gran # (Auto) 0.04 Absolute Nucleated RBC 0.04 Nucleated RBC % (auto) 0.6 Sodium 135 L Potassium 4.5 Chloride 99 Carbon Dioxide 25 Anion Gap 11 BUN 75 H Creatinine 3.87 H D Est Cr Clr Drug Dosing 14.1 Est GFR ( Amer) 12.8 Est GFR (Non-Af Amer) 11.0 BUN/Creatinine Ratio 19.4 Glucose 196 H POC Glucose 197 H Calcium 9.3 Magnesium 3.4 H Troponin I High Sens 74.2 H* D Hepatitis C Ab (EIA) Hep C Ab Signal/Cutoff SARS-CoV-2, RNA, NAAT 06/04/22 06/04/22 06/04/22 09:48 11:03 11:05 WBC RBC Hgb Hct MCV MCH MCHC RDW Std Deviation RDW Coeff of Vasu Plt Count MPV Immature Gran % (Auto) Neut % (Auto) Lymph % (Auto) Knox % (Auto) Eos % (Auto) Baso % (Auto) Neut # (Auto) Lymph # (Auto) Knox # (Auto) Eos # (Auto) Baso # (Auto) Immature Gran # (Auto) Absolute Nucleated RBC Nucleated RBC % (auto) Sodium Potassium Chloride Carbon Dioxide Anion Gap BUN Creatinine Est Cr Clr Drug Dosing Est GFR ( Amer) Est GFR (Non-Af Amer) BUN/Creatinine Ratio Glucose POC Glucose 320 H* 308 H* Calcium Magnesium Troponin I High Sens 75.0 H* Hepatitis C Ab (EIA) Hep C Ab Signal/Cutoff SARS-CoV-2, RNA, NAAT
--- NOTE | 2022-06-04 11:47 | Nephrology Progress Note ---
Date of Service June 04, 2022 Assessment & Plan Admission and Anticipated Discharge Date Admission Date: June 02, 2022 Subjective S--Had low HR overnight and coreg was held. No major SOB. NO active GI bleed. PHYSICAL EXAMINATION: GENERAL: Elderly white female who is somewhat obese. She is awake, alert, oriented x3, able to give me a pretty detailed history of her medical problems. HEENT: Mucous membranes moist. NECK: Supple. Jugular venous distention is present. CHEST: Bilateral decreased breath sounds, occasional crackles at the bases. CARDIOVASCULAR: S1 and S2, regular. Soft systolic murmur heard. ABDOMEN: Soft, nontender, obese. EXTREMITIES: Show trace to 1+ edema. DIAGNOSTIC DATA: Chest x-ray shows pulmonary congestion. LABORATORY TEST: Shows a hemoglobin as low as 6.9, after transfusion is 9.0. Creatinine baseline is 3, on admission was 3.76 and now 3.8 ASSESSMENT AND PLAN: A 71-year-old female with CKD IV, baseline creatinine 3 as well as very extensive cardiac history, now admitted with likely GI bleed with significant drop in hemoglobin. I have been consulted for acute renal failure on background CKD IV. 1. Her current creatinine of 3.8 is really not that different from her baseline of just under 3. Given significant drop in hemoglobin, it is not surprising to have some worsening in the kidney function. However, I do feel she is in congestive heart failure and does need some IV diuretics. I have known her for many years since she has had numerous admissions related with congestive heart failure, even requiring ICU stay multiple times. Most importantly make sure her hemoglobin remains stable at least more than 8 to allow for better renal recovery. No further workup is needed for acute renal failure as the acute component is quite minimal and most of it is chronic kidney disease. Avoid nephrotoxic agent like NSAIDs or contrast agent. For today No iv fluid and no Lasix. Do give iv lasix if More Blood transfusion though 2. Gastrointestinal bleed as per primary team and pending GI evaluation. I will continue to follow the patient. Results & Data Vital Signs (Past 12 Hours) Vital Signs Temp Pulse Pulse Resp BP BP Pulse Ox 06/04/22 11:23 36.6 C 66 16 110/69 95 06/04/22 07:49 36.5 C 52 L 16 126/63 97 06/04/22 05:55 42 L 06/04/22 04:56 36.3 C L 59 L 15 111/63 99 06/04/22 03:06 36.3 C L 57 L 17 109/54 L 96 06/04/22 00:43 52 L 106/51 L O2 Del Method 06/04/22 11:23 Room Air 06/04/22 07:49 Room Air 06/04/22 05:55 06/04/22 04:56 Room Air 06/04/22 03:06 Room Air 06/04/22 00:43
[2022-06-04] MEDS ORDERED: LANTUS PER UNIT CHARGE SQ SCH ×2 (12:15→21:00)
--- NOTE | 2022-06-04 12:50 | Hospitalist Progress Note ---
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 Hemoglobin at presentation 7.2, upon outpatient chart review her hemoglobin around 9, FOBT was positive in the ED. N.p.o., PPI drip, blood transfusion for hemoglobin less than 8.0 or symptomatic anemia. Status post 2 unit of PRBC and the hemoglobin remains around 9-we will monitor CBC Awaiting GI evaluation-appreciate GI input and recommendation for outpatient endoscopic Her hemoglobin remains stable at 8.7 and no more evidence of bleeding Continue current medications Acute on chronic renal failure on CKD stage IV Admitting creatinine of 3.76, creatinine around 2.4-2.8 upon outpatient chart review. Patient received 500 mL IV fluid in the ED, will be receiving blood, BMP in AM. Avoid nephrotoxic's. 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 CABG was done at the age of 39 with a strong family history of heart disease Patient was noted to have crackles at PCP office, admitting chest x-ray with congestion, on exam BLE pitting edema. admitting EKG with A-fib with rate controlled Patient with worsening renal function, will hold nephrotoxics, cardiology consult, Telemetry monitoring. Appreciate cardiology input and recommendation Has been getting intravenous Lasix Lasix is on hold as of today PT and OT evaluation and possible discharge tomorrow Likely congestive hepatopathy: L iver enzymes are elevated, INR elevated. Monitor labs in AM. If not improving with improving CHF, consider discussion with GI. We will get an ultrasound of the liver to rule out any possibility of cholelithiasis Has cholelithiasis but no evidence of cholecystitis Will have outpatient evaluation by the surgery team T2DM: On Jardiance/Trulicity/NovoLog insulin/insulin pump. We will hold home medication, patient will be n.p.o. for now, pharmacy consult, sliding scale insulin while in hospital. Hold on long acting as pt npo. Hold pt's insulin pump while in hospital. Other chronic medical conditions: Moderate persistent asthma/ HTN/HLD--- patient does not use her inhalers medications as often, resume other home meds as able. DNR/DNI DVT prophylaxis: SCDs, GI bleed. 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 She did not have any symptoms associated with it She has been feeling much better and denies any other significant symptoms Review of Systems Review of Systems: All systems reviewed and are unremarkable except as noted below Respiratory: No shortness of breath at rest Cardiovascular: Additional Comments: No palpitation and/or chest pain Physical Exam Physical Exam: Lying in bed comfortably Constitutional: well developed, well nourished, + ill appearing and + obese Eyes: PERRL, conjunctivae normal, anicteric sclerae ENMT: external ear and nose normal, oropharynx normal Neck: trachea midline, no thyromegaly Respiratory: no respiratory distress Auscultation: + diminished lung sounds and + crackles (Bibasilar crackles) Cardiovascular: Rate/Rhythm: regular rate and regular rhythm Heart Sounds: normal S1, normal S2 and + murmur Extremities: + edema (1+ edema bilaterally) Gastrointestinal (Abdomen): Inspection/Auscultation: normal bowel sounds; abdomen not distended Percussion/Palpation: abdomen soft; abdomen nontender Musculoskeletal: No acute arthritis involving any joint Neurologic: normal touch/pain/proprioception and moves all extremities; no focal motor deficits Psychiatric: A+Ox3, euthymic affect Lymphatic: no cervical or axillary lymphadenopathy Results & Data Results & Data Vital Signs (Past 12 Hours) Vital Signs Temp Pulse Pulse Resp BP BP Pulse Ox 06/04/22 11:23 36.6 C 66 16 110/69 95 06/04/22 07:49 36.5 C 52 L 16 126/63 97 06/04/22 05:55 42 L 06/04/22 04:56 36.3 C L 59 L 15 111/63 99 06/04/22 03:06 36.3 C L 57 L 17 109/54 L 96 O2 Del Method 06/04/22 11:23 Room Air 06/04/22 07:49 Room Air 06/04/22 05:55 06/04/22 04:56 Room Air 06/04/22 03:06 Room Air Laboratory Results Short CBC 06/04/22 Range/Units 05:38 WBC 6.53 (4.8-10.8) K/ul Hgb 8.7 L (12.0-16.0) g/dl Hct 27.5 L (37.0-47.0) % Plt Count 118 L (130-400) K/uL BMP 06/04/22 05:38 Sodium 135 L Potassium 4.5 Chloride 99 Carbon Dioxide 25 BUN 75 H Creatinine 3.87 H D Glucose 196 H Calcium 9.3 Medications Administered Current Inpatient Medications Acetaminophen (Acetaminophen 325 Mg Tab) 650 mg PO Q4H PRN PRN Reason: Pain or Fever Stop: 07/02/22 16:35 Al Hydrox/Mg Hydrox/Simethicone (Aluminum/Magnesium Susp 30 Ml Udc) 15 ml PO Q4 H PRN PRN Reason: Dyspepsia Stop: 07/02/22 16:35 Allopurinol (Allopurinol 300 Mg Tab) 300 mg PO QAM [facility] Stop: 07/03/22 08:59 Last Admin: 06/04/22 09:13 Dose: 300 mg Anastrozole (Anastrozole 1 Mg Tab) 1 mg PO QAM [facility] Stop: 07/03/22 08:59 Last Admin: 06/04/22 09:13 Dose: 1 mg Atropine Sulfate (Atropine Sulfate 0.1 Mg/Ml 5ml Syr) 1 mg IV PRN PRN PRN Reason: HR <30 Carvedilol (Carvedilol 12.5 Mg Tab) 12.5 mg PO BID [facility] Stop: 07/02/22 21:09 Last Admin: 06/03/22 20:51 Dose: 12.5 mg Dextrose (Dextrose 50% 50 Ml Syringe) 25 - 50 ml IV UD PRN; Protocol PRN Reason: Hypoglycemia Protocol Stop: 07/02/22 16:35 Folic Acid (Folic Acid 1 Mg Tab) 1 mg PO QAM [facility] Stop: 07/03/22 08:59 Last Admin: 06/04/22 09:14 Dose: 1 mg Glucagon (Glucagon For Inj 1 Mg Vial) 1 mg SQ UD PRN; Protocol PRN Reason: Hypoglycemia Protocol Stop: 07/02/22 16:35 Last Admin: 06/02/22 22:24 Dose: 1 mg Glucose (Glucose 10 Tab/Tube) 4 - 8 tab PO UD PRN; Protocol PRN Reason: Hypoglycemia Treatment Stop: 07/02/22 16:35 Glucose (Glucose 40% Gel 15 Gm Tube) 15 - 30 gm PO UD PRN; Protocol PRN Reason: Hypoglycemia Protocol Stop: 07/02/22 16:35 Pantoprazole Sodium 40 mg/ (Syringe) 10 mls @ 5 mls/min IV BID [facility] Stop: 07/02/22 16:34 Last Admin: 06/04/22 09:13 Dose: 5 mls/min Promethazine HCl 6.25 mg/ (Sodium Chloride) 50.25 mls @ 201 mls/hr IV Q6H PRN PRN Reason: Nausea And Vomiting Stop: 07/04/22 00:54 Insulin Aspart (Insulin Aspart Per Unit) 0 units SC ACHS [facility] Stop: 07/04/22 07:29 Last Admin: 06/04/22 12:20 Dose: 24 units Insulin Glargine (Lantus Per Unit Charge) 10 units SQ 1215 [place] Stop: 06/04/22 14:00 Last Admin: 06/04/22 12:20 Dose: 10 units Magnesium Hydroxide (Magnesium Hydroxide Susp 30 Ml Udc) 30 ml PO Q12H PRN PRN Reason: Constipation Stop: 07/02/22 16:35 Last Admin: 06/03/22 08:19 Dose: 30 ml Miscellaneous (Carbohydrates For Hypoglycemia ) 15 - 30 gm PO UD PRN PRN Reason: Hypoglycemia Protocol Stop: 07/02/22 16:35 Last Admin: 06/02/22 21:58 Dose: 15 gm Miscellaneous (Vericiguat [Verquvo]: Order Awaiting Action) 1 each N/A QS [facility] Stop: 07/03/22 07:59 Last Admin: 06/04/22 09:16 Dose: Not Given Miscellaneous Information (Pharmacy Glycemic Mgmt Consult) 1 each N/A UD PRN PRN Reason: Consult Stop: 07/02/22 16:35 Nitroglycerin (Nitroglycerin Sl 0.4 Mg/Tab Tab) 0.4 mg SL UD PRN PRN Reason: Chest Pain Stop: 07/02/22 21:09 Polyethylene Glycol (Polyethylene (Miralax) 17 Gm Pack) 17 gm PO DAILY PRN PRN Reason: Constipation Stop: 07/02/22 16:35 Rosuvastatin Calcium (Rosuvastatin Calcium 20 Mg Tab) 40 mg PO [facility] Stop: 07/02/22 21:09 Last Admin: 06/03/22 20:51 Dose: 40 mg Vitamin D (Cholecalciferol 1,000 Units 25 Mcg Tab) 2,000 units PO [facility] Stop: 07/03/22 08:59 Last Admin: 06/04/22 09:13 Dose: 2,000 units
--- NOTE | 2022-06-04 13:58 | Pharmacy Report ---
Pharmacy Glycemic Short Note 2 - Date of Service June 04, 2022 - Glycemic Short BSG Results (Last 24 hours): 06/03/22 06/03/22 06/03/22 16:55 20:05 23:37 Glucose POC Glucose 230 H 299 H 279 H 06/04/22 06/04/22 06/04/22 05:38 07:35 11:03 Glucose 196 H POC Glucose 197 H 320 H* 06/04/22 11:05 Glucose POC Glucose 308 H* OUTPATIENT ANTIDIABETIC REGIMEN: * Novolog insulin pump * Basal: 1.6 units/hr (38.4 units/day) * Bolus: 15 units with breakfast, 20 units with lunch, 15 units with dinner, 5 units with evening snack * Carb ratio: 1 unit per 3.9gm CHO consumed * Correction factor: 10 mg/dL/unit (goal 90-140 mg/dL) * Trulicity 4.5mg SQ weekly * Jardiance 10mg daily * HbA1c: likely unreliable in ESRD patients d/t interactions between the A1c analyzing technique and high levels of urea in ESRD, reduced RBC life span, iron deficiency anemia, and EPO administration. HbA1c > 7.5% in ESRD patient may overestimate the extent of hyperglycemia in ESRD patients. ASSESSMENT: 06/04: * Fasting BSG = 196 mg/dl today. Pre-lunch BSG trended up to 308 mg/dl. Patient is most likely basal deficient. Also diet was resumed. * Novolog CF and carb ratio tightened at lunch. Additional Lantus 10 units given at that also. * Basal dose scale ordered for HS based on BSG. 06/03/22: * Ms States is a diabetic F admitted last night with GI bleed, ALEXIS on CKD. * On admission, patient was hypoglycemic (BSG 57mg/dL). * Patient's home DM meds were held on admission and patient was put on Novolog coverage. * BSGs have since increased, and pt became hyperglycemic this evening (BSG 299mg/dL at HS). * Lantus was resumed tonight and Novolog parameters have been tightened to better match patient's insulin use as an outpt. * Pharmacy will continue to follow and adjust regimen as indicated. PLAN FOR INPATIENT GLYCEMIC CONTROL: * Hold outpatient diabetes medications * Basal insulin * Lantus 15 units SQ last night; 10 units today at noon. * Lantus 15-25 units dose scale SQ HS for tonight based on BSG * Bolus insulin * NovoLog per scale ACHS or Q6hrs while NPO * Goal Range: Low 120 mg/dL - High 160 mg/dL * Correction Factor: 15 mg/dL/unit * Nutritional / Prandial insulin per carb ratio of 1 unit per 4.5 grams CHO consumed
[2022-06-04] MEDS ORDERED: Nursing to Pharmacy Communication SCH (17:00)
[2022-06-04] MEDS ORDERED: INSULIN ASPART 100 UNITS/ML VIAL SC PRN (17:45)
[2022-06-04] MEDS: INSULIN, Rapid-Acting PUMP SCH ×2 (18:10→20:28)
[2022-06-04] MEDS: ROSUVASTATIN CALCIUM 20 MG TAB PO SCH (20:28)
[2022-06-05 06:48] LABS: Basophils # (auto) 0.03 K/uL (0-0.2); Basophils % (auto) 0.4 %; Eosinophils # (auto) 0.15 K/uL (0-0.50); Hematocrit (blood only) 27.1 % (37.0-47.0); Hemoglobin 8.6 g/dl (12.0-16.0); Immature Granulocytes # (auto) 0.04 K/uL (0.01-0.20); Immature Granulocytes % (auto) 0.5 %; Lymphocytes % (auto) 6.7 %; Mean Corpuscular Hemoglobin 26.3 pg (25.0-34.0); Mean Corpuscular Hgb Conc 31.7 g/dL (32.0-36.0); Mean Corpuscular Volume 82.9 fL (80.0-100.0); Mean Platelet Volume 11.9 fL (9.4-12.4); Monocytes # (auto) 0.74 K/uL (0.11-0.59); Monocytes % (auto) 9.9 %; Neutrophils # (auto) 5.98 K/uL (1.40-6.50); Neutrophils % (auto) 80.5 %; Platelet Count 111 K/uL (130-400); RDW Standard Deviation 57.5 fL (36.4-46.3); Red Blood Count 3.27 M/uL (4.20-5.40); White Blood Count 7.44 K/ul (4.8-10.8)
[2022-06-05] MEDS: CARBOHYDRATES FOR HYPOGLYCEMIA PO PRN ×2 (07:13→23:09)
[2022-06-05 07:17] LABS: BUN Creatinine Ratio 18.1 (10-20); Calcium 9.4 mg/dl (8.5-10.1); Creatinine Clr Calc Pharmacy 12.6 ml/min; Est GFR (African American) 10.9 ml/min; Est GFR (Non-African American) 9.4 ml/min; Potassium 3.3 mmol/L (3.5-5.1)
[2022-06-05] MEDS ORDERED: POTASSIUM CHLORIDE CRTAB 20 MEQ TABCR PO STA (08:06)
[2022-06-05 08:21] LABS: Estimated Average Glucose 148 mg/dl; Hemoglobin A1C 6.8 % (4.5-5.6)
[2022-06-05] MEDS: INSULIN, Rapid-Acting PUMP SCH ×4 (09:00→22:13)
[2022-06-05] MEDS: ANASTROZOLE 1 MG TAB PO SCH (09:04)
[2022-06-05] MEDS: FOLIC ACID 1 MG TAB PO SCH (09:04)
[2022-06-05] MEDS: PANTOprazole 40 MG in SYRINGE 0 ML IV SCH ×2 (09:04→21:58)
[2022-06-05] MEDS: CHOLECALCIFEROL 1,000 UNITS 25 MCG TAB PO SCH (09:04)
--- NOTE | 2022-06-05 09:48 | Nephrology Progress Note ---
Date of Service June 05, 2022 Assessment & Plan Admission and Anticipated Discharge Date Admission Date: June 02, 2022 Subjective Subjective S--No new issues.. No major SOB. NO active GI bleed but hgb slowly dropping again PHYSICAL EXAMINATION: GENERAL: Elderly white female who is somewhat obese. She is awake, alert, oriented x3, able to give me a pretty detailed history of her medical problems. HEENT: Mucous membranes moist. NECK: Supple. Jugular venous distention is present. CHEST: Bilateral decreased breath sounds, occasional crackles at the bases. CARDIOVASCULAR: S1 and S2, regular. Soft systolic murmur heard. ABDOMEN: Soft, nontender, obese. EXTREMITIES: Show trace to 1+ edema. DIAGNOSTIC DATA: Chest x-ray shows pulmonary congestion. LABORATORY TEST: Shows a hemoglobin as low as 6.9, after transfusion is 9.0. NOW it is in the 8's Creatinine baseline is 3, on admission was 3.76 and now 4.4 ASSESSMENT AND PLAN: A 71-year-old female with CKD IV, baseline creatinine 3 as well as very extensive cardiac history, now admitted with likely GI bleed with significant drop in hemoglobin. I have been consulted for acute renal failure on background CKD IV. 1. [place]--from [facility] in the setting of GI bleed pre admission with very low Hgb. Creat still rising. Creatinine baseline of just under 3. Given significant drop in hemoglobin, it is not surprising to have Worsening in the kidney function.I have known her for many years since she has had numerous admissions related with congestive heart failure, even requiring ICU stay multiple times.She cannot go too many days without Diuretics.So will have to be careful. For today No iv fluid and no Lasix. Do give iv lasix if More Blood transfusion though.Most importantly make sure her hemoglobin remains stable at least more than 8 to allow for better renal recovery.Repeat CXR x 2 today. No further workup is needed for acute renal failure as the acute component is quite minimal and most of it is chronic kidney disease. Avoid nephrotoxic agent like NSAIDs or contrast agent. 2. Gastrointestinal bleed as per primary team and plan is outpt Scope. Results & Data Vital Signs (Past 12 Hours) Vital Signs Temp Pulse Pulse Resp BP Pulse Ox O2 Del Method 06/05/22 07:42 36.5 C 67 16 131/83 97 Room Air 03/20/23 03:15 36.4 C L 62 18 129/62 98 Room Air 06/04/22 23:32 64 06/04/22 23:04 36.5 C 58 L 18 131/66 99 Room Air
--- NOTE | 2022-06-05 11:48 | XRay Report ---
XR chest 2V PA/lateral CLINICAL HISTORY: f/u CHF TECHNIQUE: 2 views of the chest were obtained. Comparison: Comparison is made to chest radiograph 06/02/2022 FINDINGS: Median sternotomy wires are unchanged. Implanted defibrillator is noted. Cardiomegaly is noted. Retic ular interstitial opacities are seen. No evidence of pleural effusion or pneumothorax. IMPRESSION: Cardiomegaly without evidence of pulmonary edema, previously noted pulmonary vascular congestion has resolved. Interstitial lung disease is again noted. ACT 112: Negative or not required by law. Electronically signed by: Nick Bird M.D. 06/05/2022 11:46 AM
--- NOTE | 2022-06-05 13:28 | Cardiology Progress Note ---
Date of Service June 05, 2022 Assessment & Plan (1) Ischemic cardiomyopathy: (2) CKD (chronic kidney disease), stage IV: (3) Obstructive sleep apnea: (4) ICD (implantable cardioverter-defibrillator), single, in situ: (5) Symptomatic anemia: (6) Elevated troponin: Plan Complex 71-year-old female with diffuse vascular disease and ischemic cardiomyopathy presented with symptomatic profound anemia questionable GI bleed Clinically improved without symptoms or complaints currently. The renal function declined and patient is being followed closely, diuretics on hold Troponin elevation secondary to renal insufficiency and acute demand ischemia of anemia As previously noted Ranexa on hold also due to renal insufficiency would not likely resume Admission and Anticipated Discharge Date Admission Date: June 02, 2022 Subjective Patient seen and examined, chart, medications, telemetry reviewed. No arrhythmias overnight Hemodynamically stable Patient denies any chest pains or shortness of breath. No overt bleeding observed. Hemoglobin is remaining stable at 8.6. Transient hypoglycemia noted Review of Systems Review of Systems: All systems reviewed & are unremarkable except as noted in HPI & below Physical Exam Constitutional: + obese; no acute distress Eyes: PERRL, conjunctivae normal, anicteric sclerae ENMT: external ear and nose normal, oropharynx normal Neck: trachea midline, no thyromegaly + thick neck Respiratory: no audible wheezes Auscultation: + diminished lung sounds; no rales Cardiovascular: Rate/Rhythm: regular rate and regular rhythm Heart Sounds: normal S1 and normal S2 Extremities: + edema (Trace edema) Gastrointestinal (Abdomen): normal bowel sounds, soft, nontender, no hepat osplenomegaly Results & Data Vital Signs (Past 12 Hours) Vital Signs Temp Pulse Resp BP Pulse Ox O2 Del Method 06/05/22 11:30 36.4 C L 67 18 135/83 100 Room Air 06/05/22 07:42 36.5 C 67 16 131/83 97 Room Air 06/05/22 03:15 36.4 C L 62 18 129/62 98 Room Air Laboratory Results Laboratory Results - last 24 hr 06/02/22 06/04/22 06/04/22 14:54 14:18 15:57 WBC RBC Hgb Hct MCV MCH MCHC RDW Std Deviation RDW Coeff of Vasu Plt Count MPV Immature Gran % (Auto) Neut % (Auto) Lymph % (Auto) Morris % (Auto) Eos % (Auto) Baso % (Auto) Neut # (Auto) Lymph # (Auto) Morris # (Auto) Eos # (Auto) Baso # (Auto) Immature Gran # (Auto) Sodium Potassium Chloride Carbon Dioxide Anion Gap BUN Creatinine Est Cr Clr Drug Dosing Est GFR ( Amer) Est GFR (Non-Af Amer) BUN/Creatinine Ratio Glucose POC Glucose 219 H Estimat Average Glucose Hemoglobin A1c Calcium Troponin I High Sens 66.7 H* Antibody ID Comment Crossmatch See Detail 06/04/22 06/05/22 06/05/22 20:25 05:52 05:52 WBC 7.44 RBC 3.27 L Hgb 8.6 L Hct 27.1 L MCV 82.9 MCH 26.3 MCHC 31.7 L RDW Std Deviation 57.5 H RDW Coeff of Vasu 19.0 H Plt Count 111 L MPV 11.9 Immature Gran % (Auto) 0.5 Neut % (Auto) 80.5 Lymph % (Auto) 6.7 Morris % (Auto) 9.9 Eos % (Auto) 2.0 Baso % (Auto) 0.4 Neut # (Auto) 5.98 Lymph # (Auto) 0.50 L Morris # (Auto) 0.74 H Eos # (Auto) 0.15 Baso # (Auto) 0.03 Immature Gran # (Auto) 0.04 Sodium Potassium Chloride Carbon Dioxide Anion Gap BUN Creatinine Est Cr Clr Drug Dosing Est GFR ( Amer) Est GFR (Non-Af Amer) BUN/Creatinine Ratio Glucose POC Glucose 143 H Estimat Average Glucose 148 Hemoglobin A1c 6.8 H Calcium Troponin I High Sens Antibody ID Comment Crossmatch 06/05/22 06/05/22 06/05/22 05:52 07:13 07:15 WBC RBC Hgb Hct MCV MCH MCHC RDW Std Deviation RDW Coeff of Vasu Plt Count MPV Immature Gran % (Auto) Neut % (Auto) Lymph % (Auto) Morris % (Auto) Eos % (Auto) Baso % (Auto) Neut # (Auto) Lymph # (Auto) Morris # (Auto) Eos # (Auto) Baso # (Auto) Immature Gran # (Auto) Sodium 137 Potassium 3.3 L D Chloride 102 Carbon Dioxide 25 Anion Gap 10 BUN 80 H Creatinine 4.41 H D Est Cr Clr Drug Dosing 12.6 Est GFR ( Amer) 10.9 Est GFR (Non-Af Amer) 9.4 BUN/Creatinine Ratio 18.1 Glucose 46 L* POC Glucose 45 L* 51 L* Estimat Average Glucose Hemoglobin A1c Calcium 9.4 Troponin I High Sens Antibody ID Comment Crossmatch 06/05/22 06/05/22 07:35 11:06 WBC RBC Hgb Hct MCV MCH MCHC RDW Std Deviation RDW Coeff of Vasu Plt Count MPV Immature Gran % (Auto) Neut % (Auto) Lymph % (Auto) Morris % (Auto) Eos % (Auto) Baso % (Auto) Neut # (Auto) Lymph # (Auto) Morris # (Auto) Eos # (Auto) Baso # (Auto) Immature Gran # (Auto) Sodium Potassium Chloride Carbon Dioxide Anion Gap BUN Creatinine Est Cr Clr Drug Dosing Est GFR ( Amer) Est GFR (Non-Af Amer) BUN/Creatinine Ratio Glucose POC Glucose 59 L* 152 H Estimat Average Glucose Hemoglobin A1c Calcium Troponin I High Sens Antibody ID Comment Crossmatch
--- NOTE | 2022-06-05 14:13 | Hospitalist Progress Note ---
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 Hemoglobin at presentation 7.2, upon outpatient chart review her hemoglobin around 9, FOBT was positive in the ED. N.p.o., PPI drip, blood transfusion for hemoglobin less than 8.0 or symptomatic anemia. Status post 2 unit of PRBC and the hemoglobin remains around 9-we will monitor CBC Awaiting GI evaluation-appreciate GI input and recommendation for outpatient endoscopic Her hemoglobin remains stable at 8.7 and no more evidence of bleeding Continue current medications No more evidence of GI bleed and the hemoglobin remains stable at 8.6 Acute on chronic renal failure on CKD stage IV Admitting creatinine of 3.76, creatinine around 2.4-2.8 upon outpatient chart review. Patient received 500 mL IV fluid in the ED, will be receiving blood, BMP in AM. Avoid nephrotoxic's. Appreciate nephrology input and recommendation IV fluid has been stopped and she will be getting Lasix IV as advised Her creatinine seems to be around her baseline-we will monitor PRP Kidney function is a stable and we are holding off any Lasix for now as per field marketer Creatinine is worse at more than 4-monitor PRP Acute on chronic heart failure with reduced ejection fraction History of significant CAD status post CABG and multiple stent placement. CABG was done at the age of 39 with a strong family history of heart disease Patient was noted to have crackles at PCP office, admitting chest x-ray with congestion, on exam BLE pitting edema. admitting EKG with A-fib with rate controlled Patient with worsening renal function, will hold nephrotoxics, cardiology consult, Telemetry monitoring. Appreciate cardiology input and recommendation Has been getting intravenous Lasix Lasix is on hold as of today PT and OT evaluation and possible discharge tomorrow Chest x-ray did not show any pulmonary edema Lasix is on hold Likely congestive hepatopathy: L iver enzymes are elevated, INR elevated. Monitor labs in AM. If not improving with improving CHF, consider discussion with GI. We will get an ultrasound of the liver to rule out any possibility of cholelithiasis Has cholelithiasis but no evidence of cholecystitis Will have outpatient evaluation by the surgery team T2DM: On Jardiance/Trulicity/NovoLog insulin/insulin pump. We will hold home medication, patient will be n.p.o. for now, pharmacy consult, sliding scale i nsulin while in hospital. Hold on long acting as pt npo. Hold pt's insulin pump while in hospital. Other chronic medical conditions: Moderate persistent asthma/ HTN/HLD--- patient does not use her inhalers medications as often, resume other home meds as able. DNR/DNI DVT prophylaxis: SCDs, GI bleed. 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 She did not have any symptoms associated with it She has been feeling much better and denies any other significant symptoms 06/05/2022 The patient was seen and examined in telemetry unit in presence of the daughter She has been feeling much better but noted to have increasing creatinine to more than 4 Denies any significant symptoms and no more bleeding Review of Systems Review of Systems: All systems reviewed and are unremarkable except as noted below Physical Exam Physical Exam: Lying in bed comfortably Constitutional: well developed, well nourished, + ill appearing and + obese Eyes: PERRL, conjunctivae normal, anicteric sclerae ENMT: external ear and nose normal, oropharynx normal Neck: trachea midline, no thyromegaly Respiratory: no respiratory distress Auscultation: + diminished lung sounds and + crackles (Bibasilar crackles) Cardiovascular: Rate/Rhythm: regular rate and regular rhythm Heart Sounds: normal S1, normal S2 and + murmur Extremities: + edema (1+ edema bilaterally) Gastrointestinal (Abdomen): Inspection/Auscultation: normal bowel sounds; abdomen not distended Percussion/Palpation: abdomen soft; abdomen nontender Musculoskeletal: No acute arthritis involving any joint Neurologic: normal touch/pain/proprioception and moves all extremities; no f ocal motor deficits Psychiatric: A+Ox3, euthymic affect Lymphatic: no cervical or axillary lymphadenopathy Results & Data Results & Data Vital Signs (Past 12 Hours) Vital Signs Temp Pulse Resp BP Pulse Ox O2 Del Method 06/05/22 11:30 36.4 C L 67 18 135/83 100 Room Air 06/05/22 07:42 36.5 C 67 16 131/83 97 Room Air 06/05/22 03:15 36.4 C L 62 18 129/62 98 Room Air Laboratory Results Short CBC 06/05/22 Range/Units 05:52 WBC 7.44 (4.8-10.8) K/ul Hgb 8.6 L (12.0-16.0) g/dl Hct 27.1 L (37.0-47.0) % Plt Count 111 L (130-400) K/uL BMP 06/05/22 05:52 Sodium 137 Potassium 3.3 L D Chloride 102 Carbon Dioxide 25 BUN 80 H Creatinine 4.41 H D Glucose 46 L* Calcium 9.4 Medications Administered Current Inpatient Medications Acetaminophen (Acetaminophen 325 Mg Tab) 650 mg PO Q4H PRN PRN Reason: Pain or Fever Stop: 07/02/22 16:35 Al Hydrox/Mg Hydrox/Simethicone (Aluminum/Magnesium Susp 30 Ml Udc) 15 ml PO Q4H PRN PRN Reason: Dyspepsia Stop: 07/02/22 16:35 Allopurinol (Allopurinol 300 Mg Tab) 300 mg PO QAM [facility] Stop: 07/03/22 08:59 Last Admin: 06/04/22 09:13 Dose: 300 mg Anastrozole (Anastrozole 1 Mg Tab) 1 mg PO QAM [facility] Stop: 07/03/22 08:59 Last Admin: 06/05/22 09:04 Dose: 1 mg Atropine Sulfate (Atropine Sulfate 0.1 Mg/Ml 5ml Syr) 1 mg IV PRN PRN PRN Reason: HR <30 Carvedilol (Carvedilol 12.5 Mg Tab) 12.5 mg PO BID [facility] Stop: 07/02/22 21:09 Last Admin: 06/03/22 20:51 Dose: 12.5 mg Dextrose (Dextrose 50% 50 Ml Syringe) 25 - 50 ml IV UD PRN; Protocol PRN Reason: Hypoglycemia Protocol Stop: 07/02/22 16:35 Folic Acid (Folic Acid 1 Mg Tab) 1 mg PO QAM [facility] Stop: 07/03/22 08:59 Last Admin: 06/05/22 09:04 Dose: 1 mg Glucagon (Glucagon For Inj 1 Mg Vial) 1 mg SQ UD PRN; Protocol PRN Reason: Hypoglycemia Protocol Stop: 07/02/22 16:35 Last Admin: 06/02/22 22:24 Dose: 1 mg Glucose (Glucose 10 Tab/Tube) 4 - 8 tab PO UD PRN; Protocol PRN Reason: Hypoglycemia Treatment Stop: 07/02/22 16:35 Glucose (Glucose 40% Gel 15 Gm Tube) 15 - 30 gm PO UD PRN; Protocol PRN Reason: Hypoglycemia Protocol Stop: 07/02/22 16:35 Pantoprazole Sodium 40 mg/ (Syringe) 10 mls @ 5 mls/min IV BID [facility] Stop: 07/02/22 16:34 Last Admin: 06/05/22 09:04 Dose: 5 mls/min Promethazine HCl 6.25 mg/ (Sodium Chloride) 50.25 mls @ 201 mls/hr IV Q6H PRN PRN Reason: Nausea And Vomiting Stop: 07/04/22 00:54 Insulin Aspart (Insulin, Rapid-Acting Pump) 1 each N/A ACHS [facility]; Protocol Stop: 07/04/22 17:44 Last Admin: 06/05/22 11:50 Dose: 21.2 each Insulin Aspart (Insulin Aspart 100 Units/Ml Vial) 0 units SC PRN PRN PRN Reason: Pump Refill Use ONLY Stop: 07/04/22 17:44 Magnesium Hydroxide (Magnesium Hydroxide Susp 30 Ml Udc) 30 ml PO Q12H PRN PRN Reason: Constipation Stop: 07/02/22 16:35 Last Admin: 06/03/22 08:19 Dose: 30 ml Miscellaneous (Carbohydrates For Hypoglycemia ) 15 - 30 gm PO UD PRN PRN Reason: Hypoglycemia Protocol Stop: 07/02/22 16:35 Last Admin: 06/05/22 07:13 Dose: 15 gm Miscellaneous (Vericiguat [Verquvo]: Order Awaiting Action) 1 each N/A QS [facility] Stop: 07/03/22 07:59 Last Admin: 06/05/22 11:45 Dose: Not Given Nitroglycerin (Nitroglycerin Sl 0.4 Mg/Tab Tab) 0.4 mg SL UD PRN PRN Reason: Chest Pain Stop: 07/02/22 21:09 Polyethylene Glycol (Polyethylene (Miralax) 17 Gm Pack) 17 gm PO DAILY PRN PRN Reason: Constipation Stop: 07/02/22 16:35 Rosuvastatin Calcium (Rosuvastatin Calcium 20 Mg Tab) 40 mg PO [facility] Stop: 07/02/22 21:09 Last Admin: 06/04/22 20:28 Dose: 40 mg Vitamin D (Cholecalciferol 1,000 Units 25 Mcg Tab) [facility] [place] Stop: 07/03/22 08:59 Last Admin: 06/05/22 09:04 Dose: 2,000 units
--- NOTE | 2022-06-05 15:23 | Electrocardiogram Report ---
Test Reason : Blood Pressure : / mmHG Vent. Rate : 068 BPM Atrial Rate : 067 BPM P-R Int : 000 ms QRS Dur : 114 ms QT Int : 452 ms P-R-T Axes : 000 -24 117 degrees QTc Int : 480 ms Poor data quality, interpretation may be adversely affected Accelerated Junctional rhythm Low voltage QRS Incomplete right bundle branch block Inferior infarct (cited on or before 02-JUN-2022) Cannot rule out Anterior infarct (cited on or before 02-JUN-2022) Abnormal ECG Confirmed by Rick Mena [id number] on 06/05/2022 3:22:35 PM Referred By: Gabby Maddox Confirmed By:Warren Mena
[2022-06-05] MEDS: ROSUVASTATIN CALCIUM 20 MG TAB PO SCH (21:59)
[2022-06-06 06:56] LABS: BUN Creatinine Ratio 17.3 (10-20); Calcium 9.5 mg/dl (8.5-10.1); Creatinine Clr Calc Pharmacy 13.3 ml/min; Est GFR (African American) 11.7 ml/min; Est GFR (Non-African American) 10.1 ml/min; Potassium 3.7 mmol/L (3.5-5.1)
[2022-06-06] MEDS: INSULIN, Rapid-Acting PUMP SCH ×2 (07:56→12:09)
[2022-06-06] MEDS: PANTOprazole 40 MG in SYRINGE 0 ML IV SCH (08:20)
[2022-06-06] MEDS: FOLIC ACID 1 MG TAB PO SCH (08:21)
[2022-06-06] MEDS: CHOLECALCIFEROL 1,000 UNITS 25 MCG TAB PO SCH (08:21)
[2022-06-06] MEDS: ANASTROZOLE 1 MG TAB PO SCH (08:21)
--- NOTE | 2022-06-06 12:10 | Nephrology Progress Note ---
Date of Service June 06, 2022 Assessment & Plan Admission and Anticipated Discharge Date Admission Date: June 02, 2022 Subjective [facility], [id number] Nephrology Progress Note Signed Patient:CHETNA VALENTINE Admit Date:06/02/22 MR#:[id number] Att Phy:Leonila Carroll MD Acct ID:[id number] Mar Phy:PCP,NO Date:1950 Fam Phy: Age:71 Location:2S Sex:F Room/Bed:S240-2 cc: ~ *NOTICE TO RECEIVING DEMOCRAT/AGENCY This information is strictly Confidential and protected under [place] law. [place] law prohibits you from making any further disclosure of this information unless further disclosure is expressly permitted by the written consent of the person to whom it pertains or is authorized by law. A general authorization for the release of medical or other information is not sufficient for this purpose. Hospital accepts no responsibility if the information is made available to any other person, INCLUDING THE PATIENT. Subjective S--No new issues. No major SOB. NO active GI bleed . Making urine. Some edema and eager to go home PHYSICAL EXAMINATION: GENERAL: Elderly white female who is somewhat obese. She is awake, alert, oriented x3, able to give me a pretty detailed history of her medical problems. HEENT: Mucous membranes moist. NECK: Supple. Jugular venous distention is present. CHEST: Bilateral decreased breath sounds, occasional crackles at the bases. CARDIOVASCULAR: S1 and S2, regular. Soft systolic murmur heard. ABDOMEN: Soft, nontender, obese. EXTREMITIES: Show trace to 1+ edema. DIAGNOSTIC DATA: Chest x-ray done 06/05 shows no Pulm edema LABORATORY TEST: Shows a hemoglobin as low as 6.9, after transfusion is 9.0. NOW it is in the 8's Creatinine baseline is 3, on admission was 3.76 and now 4.4 ASSESSMENT AND PLAN: A 71-year-old female with CKD IV, baseline creatinine 3 as well as very extensive cardiac history, now admitted with likely GI bleed with significant drop in hemoglobin. I have been consulted for acute renal failure on background CKD IV. 1. [place]--from [facility] in the setting of GI bleed pre admission with very low Hgb. Creat still rising. Creatinine baseline of just under 3. Given significant drop in hemoglobin, it is not surprising to have Worsening in the kidney function.I have known her for many years since she has had numerous admissions related with congestive heart failure, even requiring ICU stay multiple times.She cannot go too many days without Diuretics.So will have to be careful. For today No iv fluid and no Lasix.Repeat CXR x 2 done yesterday did not show CHF. We can continue to hold diuretics for now. will restart home dose of bumex from tomorrow. Creat still higher 4.3 than baseline of just around 3. Good to see creat today is lower than yesterday. 2. Gastrointestinal bleed as per primary team and plan is outpt Scope. Results & Data Vital Signs (Past 12 Hours) Vital Signs Temp Pulse Pulse Resp BP Pulse Ox O2 Del Method 06/06/22 11:20 36.7 C 71 18 139/68 94 Room Air 06/06/22 08:00 68 06/06/22 07:54 36.5 C 74 18 135/67 96 Room Air 06/06/22 03:59 36.4 C L 73 18 132/57 L 99 Room Air
--- NOTE | 2022-06-06 13:22 | Hospitalist Progress Note ---
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 Hemoglobin at presentation 7.2, upon outpatient chart review her hemoglobin around 9, FOBT was positive in the ED. N.p.o., PPI drip, blood transfusion for hemoglobin less than 8.0 or symptomatic anemia. Status post 2 unit of PRBC and the hemoglobin remains around 9-we will monitor CBC Awaiting GI evaluation-appreciate GI input and recommendation for outpatient endoscopic Her hemoglobin remains stable at 8.7 and no more evidence of bleeding Continue current medications No more evidence of GI bleed and the hemoglobin remains stable at 8.6 No more evidence of GI bleed Acute on chronic renal failure on CKD stage IV Admitting creatinine of 3.76, creatinine around 2.4-2.8 upon outpatient chart review. Patient received 500 mL IV fluid in the ED, will be receiving blood, BMP in AM. Avoid nephrotoxic's. Appreciate nephrology input and recommendation IV fluid has been stopped and she will be getting Lasix IV as advised Her creatinine seems to be around her baseline-we will monitor PRP Kidney function is a stable and we are holding off any Lasix for now as per digital community manager Creatinine is worse at more than 4-monitor PRP Creatinine is little better at 4.16 from 4.4 on Discussed with the nephrology and the patient can be discharged with restart of her Bumex from tomorrow She will have follow-up appointment with her PCP on Sunday and will have PRP done and report to the digital community manager Acute on chronic heart failure with reduced ejection fraction History of significant CAD status post CABG and multiple stent placement. CABG was done at the age of 39 with a strong family history of heart disease Patient was noted to have crackles at PCP office, admitting chest x-ray with congestion, on exam BLE pitting edema. admitting EKG with A-fib with rate controlled Patient with worsening renal function, will hold nephrotoxics, cardiology consult, Telemetry monitoring. 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 Monitor labs in AM. If not improving with improving CHF, consider discussion with GI. We will get an ultrasound of the liver to rule out any possibility of cholelithiasis Has cholelithiasis but no evidence of cholecystitis Will have outpatient evaluation by the surgery team T2DM: On Jardiance/Trulicity/NovoLog insulin/insulin pump. We will hold home medication, patient will be n.p.o. for now, pharmacy consult, sliding scale insulin while in hospital. Hold on long acting as pt npo. Hold pt's insulin pump while in hospital. Other chronic medical conditions: Moderate persistent asthma/ HTN/HLD--- patient does not use her inhalers medications as often, resume other home meds as able. DNR/DNI DVT prophylaxis: SCDs, GI bleed. 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 from the supervisor ornamental ironworking She did not have any symptoms associated with it She has been feeling much better and denies any other significant symptoms 06/05/2022 The patient was seen and examined in telemetry unit in presence of the daughter She has been feeling much better but noted to have increasing creatinine to more than 4 Denies any significant symptoms and no more bleeding 06/06/2022 The patient was seen and examined in telemetry unit She has been feeling much better and denies any chest pain and her palpitation She has been ambulating in the room without any difficulties Her creatinine is a little better and will be discharged home this afternoon Review of Systems Review of Systems: All systems reviewed and are unremarkable except as noted below Respiratory: No shortness of breath at rest Cardiovascular: Additional Comments: No palpitation and/or chest pain Physical Exam Physical Exam: Sitting at the edge of the bed without any acute distress Constitutional: well developed, well nourished, + ill appearing and + obese Eyes: PERRL, conjunctivae normal, anicteric sclerae ENMT: external ear and nose normal, oropharynx normal Neck: trachea midline, no thyromegaly Respiratory: no respiratory distress Auscultation: + diminished lung sounds and + crackles (Bibasilar crackles) Cardiovascular: Rate/Rhythm: regular rate and regular rhythm Heart Sounds: normal S1, normal S2 and + murmur Extremities: + edema (1+ edema bilaterally) Gastrointestinal (Abdomen): Inspection/Auscultation: normal bowel sounds; abdomen not distended Percussion/Palpation: abdomen soft; abdomen nontender Musculoskeletal: No acute arthritis involving any of the joint Neurologic: normal touch/pain/proprioception and moves all extremities; no focal motor deficits Psychiatric: A+Ox3, euthymic affect Lymphatic: no cervical or axillary lymphadenopathy Results & Data Results & Data Vital Signs (Past 12 Hours) Vital Signs Temp Pulse Pulse Resp BP Pulse Ox O2 Del Method 06/06/22 11:20 36.7 C 71 18 139/68 94 Room Air 06/06/22 08:00 68 06/06/22 07:54 36.5 C 74 18 135/67 96 Room Air 06/06/22 03:59 36.4 C L 73 18 132/57 L 99 Room Air Laboratory Results [facility] 06/06/22 05:54 Sodium 136 Potassium 3.7 Chloride 103 Carbon Dioxide 24 BUN 72 H Creatinine 4.16 H Glucose 81 Calcium 9.5 Medications Administered Current Inpatient Medications Acetaminophen (Acetaminophen 325 Mg Tab) 650 mg PO Q4H PRN PRN Reason: Pain or Fever Stop: 07/02/22 16:35 Al Hydrox/Mg Hydrox/Simethicone (Aluminum/Magnesium Susp 30 Ml Udc) 15 ml PO Q4H PRN PRN Reason: Dyspepsia Stop: 07/02/22 16:35 Allopurinol (Allopurinol 300 Mg Tab) 300 mg PO QAM [facility] Stop: 07/03/22 08:59 Last Admin: 06/04/22 09:13 Dose: 300 mg Anastrozole (Anastrozole 1 Mg Tab) 1 mg PO QAM [facility] Stop: 07/03/22 08:59 Last Admin: 06/06/22 08:21 Dose: 1 mg Atropine Sulfate (Atropine Sulfate 0.1 Mg/Ml 5ml Syr) 1 mg IV PRN PRN PRN Reason: HR <30 Carvedilol (Carvedilol 12.5 Mg Tab) 12.5 mg PO BID [facility] Stop: 07/02/22 21:09 Last Admin: 06/03/22 20:51 Dose: 12.5 mg Dextrose (Dextrose 50% 50 Ml Syringe) 25 - 50 ml IV UD PRN; Protocol PRN Reason: Hypoglycemia Protocol Stop: 07/02/22 16:35 Folic Acid (Folic Acid 1 Mg Tab) 1 mg PO QAM [facility] Stop: 07/03/22 08:59 Last Admin: 06/06/22 08:21 Dose: 1 mg Glucagon (Glucagon For Inj 1 Mg Vial) 1 mg SQ UD PRN; Protocol PRN Reason: Hypoglycemia Protocol Stop: 07/02/22 16:35 Last Admin: 06/02/22 22:24 Dose: 1 mg Glucose (Glucose 10 Tab/Tube) 4 - 8 tab PO UD PRN; Protocol PRN Reason: Hypoglycemia Treatment Stop: 07/02/22 16:35 Glucose (Glucose 40% Gel 15 Gm Tube) 15 - 30 gm PO UD PRN; Protocol PRN Reason: Hypoglycemia Protocol Stop: 07/02/22 16:35 Pantoprazole Sodium 40 mg/ (Syringe) 10 mls @ 5 mls/min IV BID [facility] Stop: 07/02/22 16:34 Last Admin: 06/06/22 08:20 Dose: 5 mls/min Promethazine HCl 6.25 mg/ (Sodium Chloride) 50.25 mls @ 201 mls/hr IV Q6H PRN PRN Reason: Nausea And Vomiting Stop: 07/04/22 00:54 Insulin Aspart (Insulin, Rapid-Acting Pump) 1 each N/A ACHS [facility]; Protocol Stop: 07/04/22 17:44 Last Admin: 06/06/22 12:09 Dose: 24 each Insulin Aspart (Insulin Aspart 100 Units/Ml Vial) 0 units SC PRN PRN PRN Reason: Pump Refill Use ONLY Stop: 07/04/22 17:44 Magnesium Hydroxide (Magnesium Hydroxide Susp 30 Ml Udc) 30 ml PO Q12H PRN PRN Reason: Constipation Stop: 07/02/22 16:35 Last Admin: 06/03/22 08:19 Dose: 30 ml Miscellaneous (Carbohydrates For Hypoglycemia ) 15 - 30 gm PO UD PRN PRN Reason: Hypoglycemia Protocol Stop: 07/02/22 16:35 Last Admin: 06/05/22 23:09 Dose: 15 gm Miscellaneous (Vericiguat [Verquvo]: Order Awaiting Action) 1 each N/A QS [facility] Stop: 07/03/22 07:59 Last Admin: 06/06/22 08:34 Dose: Not Given Nitroglycerin (Nitroglycerin Sl 0.4 Mg/Tab Tab) 0.4 mg SL UD PRN PRN Reason: Chest Pain Stop: 07/02/22 21:09 Polyethylene Glycol (Polyethylene (Miralax) 17 Gm Pack) 17 gm PO DAILY PRN PRN Reason: Constipation Stop: 07/02/22 16:35 Rosuvastatin Calcium (Rosuvastatin Calcium 20 Mg Tab) 40 mg PO HS [facility] Stop: 07/02/22 21:09 Last Admin: 06/05/22 21:59 Dose: 40 mg Vitamin D (Cholecalciferol 1,000 Units 25 Mcg Tab) 2,000 units PO QAM [facility] Stop: 07/03/22 08:59 Last Admin: 06/06/22 08:21 Dose: 2,000 units
--- NOTE | 2022-06-07 07:26 | Discharge Summary ---
Date of Service June 06, 2022 Admission HPI Per Admitting Provider 71-year-old lady with PMH of T2DM on oral meds and insulin pump, moderate persistent asthma, HLD, HTN, TRUE on CPAP, extensive cardiac history, ischemic cardiomyopathy with HFrEF [EF of 20 to 34% on 10/01/2021 echo], iron deficiency anemia, CKD stage IV, anemia of chronic kidney disease, history of right breast cancer status post partial right mastectomy and currently on anastrozole presented to the ED 06/02 from PCP office w/ c/o " fluid in the lungs. Patient is very much oriented and able to give her complete history, patient's daughter and granddaughter at bedside. 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 Patient also reports having darker stool for about the same time, reports dizziness. Patient has not noticed any fresh blood in the stool. Patient denies any headache or shortness of breath or sore throat or flulike illness or chest pain or palpitation or belly pain or pain/burning while passing urine. 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 Patient reports quitting smoking 33 years ago, used to drink occasionally but quit drinking about 12 to 15 years ago, denies any recreational drug use. CODE STATUS DNR/DNI as per my discussion with the patient and her family at bedside. Patient does not have personal history of stroke but does have extensive cardiac history. Patient reports cancer in her family with ovarian cancer in mother and breast cancer in her sister. All the medications were reviewed with the patient. Plan of care discussed with the patient and her family at bedside, they voiced understanding. Admission Exam Per Admitting Provider Physical Exam: GENERAL: Alert and oriented x3. NAD, on RA. HEENT: No pallor, no icterus. Pupils equal, round and reactive to light. Oral mucosa moist. NECK: No JVD, no neck masses. HEART: S1 and S2 heard. irregular rate and rhythm. No murmur, no gallop. Old healed mid sternotomy scar noted. RESPIRATORY SYSTEM: Normal AP diameter. No accessory muscle use. No wheezing, no crackles. ABDOMEN: Soft, bowel sounds present, nontender, no distention. CENTRAL NERVOUS SYSTEM: No facial droop. Speech is clear. Obeys simple commands. Moves extremities. EXTREMITIES: RLE 1 to 2+ edema, LLE 1+ edema, no erythema seen. Principal Diagnosis Acute GI bleed-resolved, acute on chronic kidney disease stressful, significant CAD with acute on chronic heart failure with reduced EF Discharge Exam Sitting at the edge of the bed without any acute distress Constitutional well developed, well nourished, + ill appearing and + obese Eyes PERRL, conjunctivae normal, anicteric sclerae ENMT external ear and nose normal, oropharynx normal Neck trachea midline, no thyromegaly Respiratory no respiratory distress Auscultation: + diminished lung sounds and + crackles (Bibasilar crackles) Cardiovascular Rate/Rhythm: regular rate and regular rhythm Heart Sounds: normal S1, normal S2 and + murmur Extremities: + edema (1+ edema bilaterally) Gastrointestinal (Abdomen) Inspection/Auscultation: normal bowel sounds; abdomen not distended Percussion/Palpation: abdomen soft; abdomen nontender Neurologic normal touch/pain/proprioception and moves all extremities; no focal motor deficits Psychiatric A+Ox3, euthymic affect Lymphatic no cervical or axillary lymphadenopathy Discharge Data Allergies Allergy/AdvReac Type Severity Reaction Status Date / Time tramadol Allergy Severe Anaphylaxis Verified 06/02/22 16:16 dopamine Allergy Unknown CAN'T Verified 06/02/22 16:16 REMEMBER morphine AdvReac Severe SEVERE Verified 06/02/22 16:16 VOMITING--"SICKER THAN A DOG" gabapentin AdvReac Intermediate INCREASED Verified 06/02/22 16:16 LEG EDEMA lisinopril AdvReac Intermediate Cough Verified 06/02/22 16:16 rofecoxib AdvReac Intermediate SWELLING Verified 06/02/22 16:16 OF ANKLES/FEET Consultations 06/02/22 15:50 ED Decision to Admit Stat 06/02/22 16:34 Consult Cardiology Routine Consult Gastroenterology Routine Consult Nephrology Routine Ordered Studies 06/03/22 13:53 US liver Routine Hospital Course (1) GI bleed: Plan Acute on chronic anemia Likely upper GI bleed Patient did came in with tiredness/lethargy for 4 to 5 days ago [employer], associated with dark stool for about the same duration. Hemoglobin at presentation 7.2, upon outpatient chart review her hemoglobin around 9, FOBT was positive in the ED. N.p.o., PPI drip, blood transfusion for hemoglobin less than 8.0 or symptomatic anemia. Status post 2 unit of PRBC and the hemoglobin remains around 9-we will monitor CBC Awaiting GI evaluation-appreciate GI input and recommendation for outpatient endoscopic Her hemoglobin remains stable at 8.7 and no more evidence of bleeding Continue current medications No more evidence of GI bleed and the hemoglobin remains stable at 8.6 No more evidence of GI bleed Acute on chronic renal failure on CKD stage IV Admitting creatinine of 3.76, creatinine around 2.4-2.8 upon outpatient chart review. Patient received 500 mL IV fluid in the ED, will be receiving blood, BMP in AM. Avoid nephrotoxic's. 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 CABG was done at the age of 39 with a strong family history of heart disease Patient was noted to have crackles at PCP office, admitting chest x-ray with congestion, on exam BLE pitting edema. admitting EKG with A-fib with rate controlled Patient with worsening renal function, will hold nephrotoxics, cardiology consult, Telemetry monitoring. 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 Monitor labs in AM. If not improving with improving CHF, consider discussion with GI. We will get an ultrasound of the liver to rule out any possibility of cholelithiasis Has cholelithiasis but no evidence of cholecystitis Will have outpatient evaluation by the surgery team T2DM: On Jardiance/Trulicity/NovoLog insulin/insulin pump. We will hold home medication, patient will be n.p.o. for now, pharmacy consult, sliding scale insulin while in hospital. Hold on long acting as pt npo. Hold pt's insulin pump while in hospital. Other chronic medical conditions: Moderate persistent asthma/ HTN/HLD--- patient does not use her inhalers medications as often, resume other home meds as able. DNR/DNI DVT prophylaxis: SCDs, GI bleed. Total Time Total Time Spent Total Time Spent (In Minutes): 35 minutes Discharge Plan Discharge Items Patient Disposition: Home - Self-Care Reason For Visit: WEAKNESS/TIREDNESS/BLACK STOOL/LUNG CRACKLES Discharge Diagnosis: Acute GI bleed-resolved, acute on chronic kidney disease stressful, significant CAD with acute on chronic heart failure with reduced EF Activity: Resume your previous activity Non-emergency contact: Primary Care Provider Call non-emergency contact if: you have any medication questions and your symptoms worsen Follow-up/Referrals: PCP,NO [Physician] - (Has appointment with Dr. Maddox on Sunday and she will have a BMP done on the day) Diet: Heart Healthy and Low Fiber Addtl Attending Provider Instructions: Please take precautions to avoid falls Take your medications as advised You should be taking your Eliquis FROM Sunday with a reduced dose of 2.5 mg twice daily You should start your Bumex from tomorrow Please give appointments with your healthcare providers and especially have follow-up with the neckties painter sooner than later Pending Studies at Discharge: No Stand-Alone Forms: My [facility] in[employer]Now, Smoking Cessation Medications and DC Order Prescriptions: New pantoprazole [Protonix] 40 mg tablet,delayed release (DR/EC) 40 mg PO BID Qty: 60 0RF Continued anastrozole 1 mg tablet 1 mg PO QAM carvedilol 12.5 mg tablet 12.5 mg PO BID Rx Instructions: PER EXT MED HX--LAST FILLED 05/08/22. PER [facility] TAKING 6.25 MG BID acetaminophen [Tylenol Extra Strength] 500 mg Tablet 1,000 mg PO BID PRN (Reason: Pain) lorazepam 0.5 mg Tablet 0.5 mg PO HS PRN (Reason: Insomnia) trazodone 100 mg tablet 100 mg PO HS PRN (Reason: Sleep) insulin aspart U-100 100 unit/mL Solution 1 sliding scale dose continuous subcutaneous infusion CONTINOUS Rx Instructions: PER [facility]--15 UNITS/BREAKFAST, 40 UNITS LUNCH & DINNER WITH ADDITIONAL CORRECTION FACTOR. nitroglycerin [Nitrostat] 0.4 mg Tablet, Sublingual 0.4 mg sublingual DIRECTED PRN (Reason: Chest Pain) Rx Instructions: 1 TAB UNDER TONGUE EVERY 5 MIN. NEEDED, MAX 3 DOSES, IF CONTINUES CALL 911. bumetanide 1 mg tablet 1 mg PO BID Rx Instructions: PER [facility]--IF WT GAIN >3LB/24 HR OR 5 LB/3 DAYS, TAKES 2 MG IN MORNING. folic acid 1 mg Tablet 1 mg PO QAM allopurinol 300 mg tablet 300 mg PO QAM albuterol sulfate [ProAir HFA] 90 mcg/actuation Hfa Aerosol Inhaler 2 puff INHALATION Q4H PRN (Reason: Shortness Of Breath Or Wheezing) fluticasone propionate 50 mcg/actuation [place],Suspension 2 spray INTRANASAL HS Rx Instructions: administer into each nostril rosuvastatin [Crestor] 40 mg Tablet 40 mg PO HS ranolazine 500 mg Tablet Extended Release 12 Hr 500 mg PO BID Advair HFA 230-21 mcg/actuation Hfa Aerosol Inhaler 2 puff INHALATION BID cholecalciferol (vitamin D3) [Vitamin D3] 50 mcg (2,000 unit) Capsule 50 mcg PO QAM empagliflozin 10 mg Tablet 10 mg PO QAM Trulicity 3 mg/0.5 mL pen injector 3 mg SUBCUT WK Rx Instructions: TAKES ON SUNDAYS [place] 10 mg Tablet 10 mg PO DAILY Rx Instructions: must administer with a meal/food Changed Eliquis 5 mg tablet 2.5 mg PO BID Qty: 1 0RF Discontinued pantoprazole 20 mg Tablet,Delayed Release (Dr/Ec) 20 mg PO DAILYBB Discharge Orders: Discharge Order- CHF (Routine); Ordered 06/06/22 Ordered By: Leonila Bonilla/Other Patient Handouts: Managing Type 2 Diabetes Admission Data Admit Date/Time: 06/02/22 16:37 Attending Provider: Leonila Carroll Admit Provider: Racquel Shah Primary Care Provider: Gabby Maddox Other Providers: Racquel Shah ; Brian Hayden ; Yee Hernandez ; Lea Murray Other Interventions: Discharge Summary Assessment (RN) Last Done: 06/06/22 13:40
== END 2022-06-06 14:05 | disposition home or self-care (01) | DRG 377 ==
LOC: ED 14:03 → SUATTDRO 16:37 → 2S 16:37

== ENCOUNTER 2022-09-26 15:46 | Inpatient (IN) ==
[2022-09-26] MEDS ORDERED: SODIUM CHLORIDE 0.9% 1000ML 500 ML IV ONE (17:15)
[2022-09-26 17:31] LABS: Hemoglobin 13.1 g/dl (12.0-16.0); Mean Corpuscular Hgb Conc 32.8 g/dL (32.0-36.0); Mean Corpuscular Volume 82.3 fL (80.0-100.0); Mean Platelet Volume 10.5 fL (9.4-12.4); Platelet Count 173 K/uL (130-400); Red Blood Count 4.86 M/uL (4.20-5.40); White Blood Count 15.05 K/ul (4.8-10.8)
--- NOTE | 2022-09-26 17:38 | Emergency Department Note ---
Impression & Plan Weakness, Elevated troponin, Falling, Acute dehydration, Leukocytosis, CRF (chronic renal failure) ED Provider Note NAME: CHETNA VALENTINE AGE: 72 SEX: F : 1950 ARRIVES VIA: Walk-In INFORMANT: [Patient] ED PROVIDER(S): [Ezekiel Lusi MD] CHIEF COMPLAINT: Weakness HISTORY OF PRESENT ILLNESS: The patient is a 72-year-old female who states that she has noticed increasing weakness in the legs especially the right in the last week. She has fallen at least 3 times. She feels shaky and her legs give out and she falls. She did not strike her head. No loss of consciousness. No chest pain, shortness of breath, cough or congestion. No urinary complaints. Patient has not had fever. She has been running higher blood sugars. She just had her basal insulin rate increased today. Because of the falling and weakness, she presents for evaluation. Of note, the patient is on Eliquis for A-fib. PMHx/PSHx: See Below SOCIAL HISTORY: See Below. PHYSICAL EXAM: GENERAL: Patient is in no acute distress. HEENT: No acute trauma, normocephalic atraumatic, mucous membranes somewhat dry, no nasal congestion. NECK: No stridor, no adenopathy, no meningismus, trachea is midline. LUNGS: Clear to auscultation bilaterally, no wheeze, no rhonchi, breath sounds equal. HEART: Irregular rhythm, no murmurs, normal rate ABDOMEN: Soft, nontender, bowel sounds positive, no peritonitis. EXTREMITIES: No cyanosis. Moderate bilateral pedal edema with an older contusion to the dorsal left foot, no erythema to suggest cellulitis. NEUROLOGIC: Oriented x 3, no acute motor or sensory deficits, no focal weakness. No speech slur or facial droop. The right leg does appear weaker than the left. Upper extremities show no drift or cerebellar dysfunction. SKIN: No rash, no jaundice, no diaphoresis. DIFFERENTIAL DIAGNOSIS: Stroke, dehydration, electrolyte imbalance, anemia, UTI, renal or liver failure, among others. EMERGENCY DEPARTMENT COURSE/PROCEDURES: Prior/Outside records reviewed: None. ECG per my interpretation: Indication was weakness. The ECG shows atrial fibrillation with a rate of 89. There is some baseline artifact. There appears to be an old inferior and old anterior infarct. LVH is present. T wave inversions in seen in the high lateral leads. No obvious ST elevation. QTc was 447. No PVCs. Compared to an ECG from 05 June 2022, the rate has increased. A-fib is now present. The lateral T wave changes are more pronounced. Continuous Cardiac Monitoring per my interpretation: An order was placed for continuous cardiac monitoring. The monitor shows a rate of 86 with atrial fibrillation. MEDICAL DECISION MAKING: There is a moderate leukocytosis, this could be consistent with infection or the stress of her falling and current presentation. There is a normal hemoglobin and platelet count. No coagulopathy. Renal panel testing shows a high creatinine, this is baseline for the patient. BUN is also elevated. The BUN value is higher than her recent testing. No concerning liver enzyme elevation. The patient appeared to be in a euthyroid state. ECG showed atrial fibrillation with LVH and some T wave change. The ECG did not show any evidence for acute MS and was similar to previous ECGs except that A-fib was present today. Cardiac troponin testing does show an elevation in the 200s, the troponin is typically elevated but today's value is higher than baseline. This troponin elevation could be secondary to cardiac injury or potentially mismatch given all of her other issues. Urinalysis did not show findings of infection but more so contamination. COVID test returned negative. Chest film per my review did not show pneumonia, pneumothorax or mediastinal widening. Brain CT showed no acute bleed or mass effect. On exam, the patient's right leg did seem weaker than the left, no speech slur, no upper extremity deficit noted. The patient received IV saline, 1.5 L. She has done well. Given the falling, given her weakness, given the leukocytosis and the troponin elevation, I do think further care in the hospital is warranted. I spoke with the patient and case management, the on-call hospitalist was consulted. DISPOSITION: Patient's presentation and findings warrant a hospital stay. Past Med/Surg History Medical History CKD (chronic kidney disease), stage IV Elevated troponin ICD (implantable cardioverter-defibrillator), single, in situ Ischemic cardiomyopathy Symptomatic anemia Social History Smoking Status: Never smoker Second Hand Exposure: No; Do You Dip or Chew Tobacco: No; Hx Alcohol Use: No Hx Substance Use: No Preferred Language: Romansh Communication Ability: Effective Dipper And Baker Required: No Beliefs That Will Affect Care: None Current Living Situation: Alone Feels Safe at Home: Yes Assistive Devices: None Allergies Allergies Allergy/AdvReac Type Severity Reaction Status Date / Time tramadol Allergy Severe Anaphylaxis Verified 06/02/22 16:16 dopamine Allergy Unknown CAN'T Verified 06/02/22 16:16 REMEMBER morphine AdvReac Severe SEVERE Verified 06/02/22 16:16 VOMITING--"SICKER THAN A DOG" gabapentin AdvReac Intermediate INCREASED Verified 06/02/22 16:16 LEG EDEMA lisinopril AdvReac Intermediate Cough Verified 06/02/22 16:16 rofecoxib AdvReac Intermediate SWELLING Verified 06/02/22 16:16 OF ANKLES/FEET Home Meds Home Medications Medication Instructions Recorded Confirmed acetaminophen 500 mg tablet 1,000 mg PO BID PRN Pain 06/02/22 06/02/22 (Tylenol Extra Strength) albuterol sulfate 90 mcg/actuation 2 puff inhalation Q4H PRN 06/02/22 06/02/22 aerosol inhaler (ProAir HFA) Shortness Of Breath Or Wheezing allopurinol 300 mg tablet 300 mg PO QAM 06/02/22 06/02/22 anastrozole 1 mg tablet 1 mg PO QAM 06/02/22 06/02/22 bumetanide 1 mg tablet 1 mg PO BID 06/02/22 06/02/22 carvedilol 12.5 mg tablet 12.5 mg PO BID 06/02/22 06/02/22 cholecalciferol (vitamin D3) 50 50 mcg PO QAM 06/02/22 06/02/22 mcg (2,000 unit) capsule (Vitamin D3) dulaglutide 3 mg/0.5 mL 3 mg subcut WK 06/02/22 06/02/22 subcutaneous pen injector (Trulicity) empagliflozin 10 mg tablet 10 mg PO QAM 06/02/22 06/02/22 fluticasone propionate 230 2 puff inhalation BID 06/02/22 06/02/22 mcg-salmeterol 21 mcg/actuation HFA inhaler (Advair HFA) fluticasone propionate 50 2 spray intranasal HS 06/02/22 06/02/22 mcg/actuation nasal spray,suspension folic acid 1 mg tablet 1 mg PO QAM 06/02/22 06/02/22 insulin aspart U-100 100 unit/mL 1 sliding scale dose continuous 06/02/22 06/02/22 subcutaneous solution subcutaneous infusion CONTINOUS lorazepam 0.5 mg tablet 0.5 mg PO HS PRN Insomnia 06/02/22 06/02/22 nitroglycerin 0.4 mg sublingual 0.4 mg sublingual DIRECTED PRN 06/02/22 06/02/22 tablet (Nitrostat) Chest Pain ranolazine 500 mg tablet,extended 500 mg PO BID 06/02/22 06/02/22 release,12 hr rosuvastatin 40 mg tablet (Crestor) 40 mg PO HS 06/02/22 06/02/22 trazodone 100 mg tablet 100 mg PO HS PRN Sleep 06/02/22 06/02/22 vericiguat 10 mg tablet (Verquvo) 10 mg PO DAILY 06/02/22 06/02/22 Previous Rx's Medication Instructions Recorded apixaban 5 mg tablet (Eliquis) 2.5 mg PO BID #1 tab 06/06/22 pantoprazole 40 mg tablet,delayed 40 mg PO BID #60 tabs 06/06/22 release (Protonix) Results & Data (ED) Vital Signs Vital Signs - 24 hr 09/26/22 15:53 09/26/22 17:49 09/26/22 17:49 Temperature 36.3 C L Temperature Source Temporal Artery Scan Pulse Rate 86 Pulse Rate [Right Finger] 80 Pulse Rate from SpO2 Sensor Pulse Rhythm Regular Pulse Strength Normal Respiratory Rate 20 19 Respiratory Effort / Characteristics Non-Labored Spontaneous Non-Labored Respiratory Depth Normal Normal Respiratory Pattern Regular Regular Blood Pressure 138/79 Blood Pressure [Right Arm] 151/74 H Blood Pressure Mean 98 Blood Pressure Mean [Right Arm] 99 Blood Pressure Position Sitting Pulse Oximetry 99 94 Oxygen Delivery Method Room Air Room Air Room Air Sepsis Recent Fever Within 48 Hours No Sepsis New/Unexplained Change in Mental Status No Sepsis Action Taken by Nursing No Action Required 09/26/22 17:49 09/26/22 17:58 09/26/22 19:00 Temperature Temperature Source Pulse Rate 87 77 Pulse Rate [Right Finger] Pulse Rate from SpO2 Sensor 76 Pulse Rhythm Pulse Strength Respiratory Rate 24 Respiratory Effort / Characteristics Respiratory Depth Respiratory Pattern Blood Pressure 155/69 H Blood Pressure [Right Arm] Blood Pressure Mean 97 Blood Pressure Mean [Right Arm] Blood Pressure Position Pulse Oximetry 94 Oxygen Delivery Method Room Air Room Air Sepsis Recent Fever Within 48 Hours Sepsis New/Unexplained Change in Mental Status Sepsis Action Taken by [facility] Medications Current Medication List: was personally reviewed by me Laboratory Data Attestation: I reviewed the patient's lab results. 09/26/22 16:52 09/26/22 16:52 Lab Results 09/26/22 09/26/22 09/26/22 Range/Units 16:32 16:52 16:52 WBC 15.05 H (4.8-10.8) K/ul RBC 4.86 (4.20-5.40) M/uL Hgb 13.1 (12.0-16.0) g/dl Hct 40.0 (37.0-47.0) % MCV 82.3 (80.0-100.0) fL MCH 27.0 (25.0-34.0) pg MCHC 32.8 (32.0-36.0) g/dL RDW Std Deviation 59.0 H (36.4-46.3) fL RDW Coeff of Vasu 20.0 H (11.5-14.5) % Plt Count 173 (130-400) K/uL MPV 10.5 (9.4-12.4) fL PT 11.2 (9.0-12.0) Seconds INR 1.0 (0.9-1.1) APTT 22.9 (21.0-31.0) Seconds PTT Ratio 0.8 Sodium (136-145) mmol/L Potassium (3.5-5.1) mmol/L Chloride (98-107) mmol/L Carbon Dioxide (21-32) mmol/L Anion Gap (3-11) BUN (6-23) mg/dl Creatinine (0.6-1.2) mg/dl Est Cr Clr Drug Dosing Est GFR ( Amer) ml/min Est GFR (Non-Af Amer) ml/min BUN/Creatinine Ratio (10-20) Glucose (70-99(Fasting)) mg/dl Calcium (8.6-10.3) mg/dl Magnesium (1.7-2.4) mg/dl Total Bilirubin (0.2-1.0) mg/dl AST (13-39) U/L ALT (7-52) U/L Alkaline Phosphatase (34-104) U/L Troponin I High Sens (0-14) pg/ml Total Protein (6.0-8.3) gm/dl Albumin (3.4-5.0) gm/dl Globulin (2.5-4.0) gm/dl Albumin/Globulin Ratio (0.9-2) TSH (0.300-4.500) uIu/ml Urine Color Yellow Urine Appearance Cloudy A (Clear) Urine pH 5.0 (4.5-7.5) Ur Specific [place] 1.014 (1.000-1.030) Urine Protein 2+ H (Negative) Urine Glucose (UA) 3+ H (Negative) Urine Ketones Negative (Negative) Urine Blood 2+ H (Negative) Urine Nitrite Negative (Negative) Urine Bilirubin Negative (Negative) Urine Urobilinogen Negative (Negative) Ur Leukocyte Esterase Negative (Negative) Urine WBC (Auto) 5-10 H (0-5) /hpf Urine RBC (Auto) 0-4 (0-4) /hpf U Hyaline Cast (Auto) 1-5 (0-5) /lpf U Epithel Cells (Auto) >30 H (0-5) /lpf Urine Bacteria (Auto) Negative (Negative) Granular Casts 1-5 H (0) /lpf Urine Yeast Not Reportable SARS-CoV-2, RNA, NAAT (NEGATIVE) 09/26/22 09/26/22 09/26/22 Range/Units 16:52 16:52 17:44 WBC (4.8-10.8) K/ul RBC (4.20-5.40) M/uL Hgb (12.0-16.0) g/dl Hct (37.0-47.0) % MCV (80.0-100.0) fL MCH (25.0-34.0) pg MCHC (32.0-36.0) g/dL RDW Std Deviation (36.4-46.3) fL RDW Coeff of Vasu (11.5-14.5) % Plt Count (130-400) K/uL MPV (9.4-12.4) fL PT (9.0-12.0) Seconds INR (0.9-1.1) APTT (21.0-31.0) Seconds PTT Ratio Sodium 133 L (136-145) mmol/L Potassium 3.7 (3.5-5.1) mmol/L Chloride 87 L (98-107) mmol/L Carbon Dioxide 30 (21-32) mmol/L Anion Gap 16 H (3-11) BUN 114 H (6-23) mg/dl Creatinine 3.16 H (0.6-1.2) mg/dl Est Cr Clr Drug Dosing Not Reportable Est GFR ( Amer) 16.2 ml/min Est GFR (Non-Af Amer) 14.0 ml/min BUN/Creatinine Ratio 36.1 H (10-20) Glucose 199 H (70-99(Fasting)) mg/dl Calcium 9.9 (8.6-10.3) mg/dl Magnesium 2.7 H (1.7-2.4) mg/dl Total Bilirubin 0.9 (0.2-1.0) mg/dl AST 27 (13-39) U/L ALT 40 (7-52) U/L Alkaline Phosphatase 125 H (34-104) U/L Troponin I High Sens (0-14) pg/ml Total Protein 7.1 (6.0-8.3) gm/dl Albumin 4.2 (3.4-5.0) gm/dl Globulin 2.9 (2.5-4.0) gm/dl Albumin/Globulin Ratio 1.4 (0.9-2) TSH 1.086 (0.300-4.500) uIu/ml Urine Color Urine Appearance (Clear) Urine pH (4.5-7.5) Ur Specific [place] (1.000-1.030) Urine Protein (Negative) Urine Glucose (UA) (Negative) Urine Ketones (Negative) Urine Blood (Negative) Urine Nitrite (Negative) Urine Bilirubin (Negative) Urine Urobilinogen (Negative) Ur Leukocyte Esterase (Negative) Urine WBC (Auto) (0-5) /hpf Urine RBC (Auto) (0-4) /hpf U Hyaline Cast (Auto) (0-5) /lpf U Epithel Cells (Auto) (0-5) /lpf Urine Bacteria (Auto) (Negative) Granular Casts (0) /lpf Urine Yeast SARS-CoV-2, RNA, NAAT NEGATIVE (NEGATIVE) 09/26/22 Range/Units 19:06 WBC (4.8-10.8) K/ul RBC (4.20-5.40) M/uL Hgb (12.0-16.0) g/dl Hct (37.0-47.0) % MCV (80.0-100.0) fL MCH (25.0-34.0) pg MCHC (32.0-36.0) g/dL RDW Std Deviation (36.4-46.3) fL RDW Coeff of Vasu (11.5-14.5) % Plt Count (130-400) K/uL MPV (9.4-12.4) fL PT (9.0-12.0) Seconds INR (0.9-1.1) APTT (21.0-31.0) Seconds PTT Ratio Sodium (136-145) mmol/L Potassium (3.5-5.1) mmol/L Chloride (98-107) mmol/L Carbon Dioxide (21-32) mmol/L Anion Gap (3-11) BUN (6-23) mg/dl Creatinine (0.6-1.2) mg/dl Est Cr Clr Drug Dosing Est GFR ( Amer) ml/min Est GFR (Non-Af Amer) ml/min BUN/Creatinine Ratio (10-20) Glucose (70-99(Fasting)) mg/dl Calcium (8.6-10.3) mg/dl Magnesium (1.7-2.4) mg/dl Total Bilirubin (0.2-1.0) mg/dl AST (13-39) U/L ALT (7-52) U/L Alkaline Phosphatase (34-104) U/L Troponin I High Sens 254.8 H* (0-14) pg/ml Total Protein (6.0-8.3) gm/dl Albumin (3.4-5.0) gm/dl Globulin (2.5-4.0) gm/dl Albumin/Globulin Ratio (0.9-2) TSH (0.300-4.500) uIu/ml Urine Color Urine Appearance (Clear) Urine pH (4.5-7.5) Ur Specific [place] (1.000-1.030) Urine Protein (Negative) Urine Glucose (UA) (Negative) Urine Ketones (Negative) Urine Blood (Negative) Urine Nitrite (Negative) Urine Bilirubin (Negative) Urine Urobilinogen (Negative) Ur Leukocyte Esterase (Negative) Urine WBC (Auto) (0-5) /hpf Urine RBC (Auto) (0-4) /hpf U Hyaline Cast (Auto) (0-5) /lpf U Epithel Cells (Auto) (0-5) /lpf Urine Bacteria (Auto) (Negative) Granular Casts (0) /lpf Urine Yeast SARS-CoV-2, RNA, NAAT (NEGATIVE) Administered Medications Discontinued Medications Sodium Chloride (Nss 1000ml) 500 mls @ 999 mls/hr IV .Q31M ONE Stop: 09/26/22 17:45 Last Infusion: 09/26/22 19:13 Dose: 0 mls/hr Documented By: Admin: 09/26/22 18:38 Dose: 999 mls/hr Documented By: JANICE Sodium Chloride (Nss 1000ml) 1,000 mls @ 999 mls/hr IV .Q1H1M ONE Stop: 09/26/22 19:47 Last Admin: 09/26/22 19:06 Dose: 999 mls/hr Documented By: AMY Imaging Data Radiologist's Impression: Chest X-Ray 09/26/22 15:56 XR chest 1V portable CLINICAL HISTORY: stroke alert TECHNIQUE: Single frontal radiograph of the chest was obtained. Comparison: Comparison is made to chest radiograph 06/05/2022 FINDINGS: Pacemaker defibrillator is seen. Cardiomegaly is noted. The lungs are clear. No evidence of pleural effusion or pneumothorax. IMPRESSION: No acute chest disease. ACT 112: Negative or not required by law. Electronically signed by: Nick Bird M.D. 09/26/2022 5:[address] 09/26/22 17:15 CT head/brain wo con CLINICAL HISTORY: trauma Technique: Contiguous axial CT images of the head were acquired from the base of the skull to the vertex without intravenous contrast administration. Images were viewed in brain, subdural and bone windows. Automated dose lowering techniques and/or adjustment according to patient size were utilized for this exam. Comparison: None available at the time of this dictation. Findings: The ventricles, basal cisterns, and cerebral sulci are normal. There is no acute intracranial hemorrhage or evidence of acute territorial infarction. Neither mass effect, shift of the midline structures, nor abnormal extra-axial fluid collections are shown. Imaged portions of the paranasal sinuses and mastoid air cells are clear. The orbits appear normal. There are no acute fractures of the calvaria or scalp swelling. Impression: No acute intracranial hemorrhage, no evidence of acute territorial infarction or other acute intracranial disease process. ACT 112: Negative or not required by law. Electronically signed by: Nick Bird M.D. 09/26/2022 6:19 PM Discharge Plan Visit Data Chief Complaint: Weakness Stated Complaint: WEAKNESS R LEG,FATIGUE,DIZZY,KEEP FALLING ED Provider: Ezekiel Luis Discharge Problem: Weakness, Elevated troponin, Falling, Acute dehydration, Leukocytosis, CRF (chronic renal failure) Patient Disposition: Admitted As Inpatient Condition: Fair Forms Stand Alone Forms: [facility] Prescriptions Prescriptions: No Action anastrozole 1 mg tablet 1 mg PO QAM carvedilol 12.5 mg tablet 12.5 mg PO BID Rx Instructions: PER EXT MED HX--LAST FILLED 05/08/22. PER [facility] TAKING 6.25 MG BID acetaminophen [Tylenol Extra Strength] 500 mg Tablet 1,000 mg PO BID PRN (Reason: Pain) lorazepam 0.5 mg Tablet 0.5 mg PO HS PRN (Reason: Insomnia) trazodone 100 mg tablet 100 mg PO HS PRN (Reason: Sleep) insulin aspart U-100 100 unit/mL Solution 1 sliding scale dose continuous subcutaneous infusion CONTINOUS Rx Instructions: PER [facility]--15 UNITS/BREAKFAST, 40 UNITS LUNCH & DINNER WITH ADDITIONAL CORRECTION FACTOR. nitroglycerin [Nitrostat] 0.4 mg Tablet, Sublingual 0.4 mg sublingual DIRECTED PRN (Reason: Chest Pain) Rx Instructions: 1 TAB UNDER TONGUE EVERY 5 MIN. NEEDED, MAX 3 DOSES, IF CONTINUES CALL 911. bumetanide 1 mg tablet 1 mg PO BID Rx Instructions: PER [facility]--IF WT GAIN >3LB/24 HR OR 5 LB/3 DAYS, TAKES 2 MG IN MORNING. folic acid 1 mg Tablet 1 mg PO QAM allopurinol 300 mg tablet 300 mg PO QAM albuterol sulfate [ProAir HFA] 90 mcg/actuation Hfa Aerosol Inhaler 2 puff INHALATION Q4H PRN (Reason: Shortness Of Breath Or Wheezing) fluticasone propionate 50 mcg/actuation [place],Suspension 2 spray INTRANASAL HS Rx Instructions: administer into each nostril rosuvastatin [Crestor] 40 mg Tablet 40 mg PO HS ranolazine 500 mg Tablet Extended Release 12 Hr 500 mg PO BID Advair HFA 230-21 mcg/actuation Hfa Aerosol Inhaler 2 puff INHALATION BID cholecalciferol (vitamin D3) [Vitamin D3] 50 mcg (2,000 unit) Capsule 50 mcg PO QAM empagliflozin 10 mg Tablet 10 mg PO QAM Trulicity 3 mg/0.5 mL pen injector 3 mg SUBCUT WK Rx Instructions: TAKES ON SUNDAYS Verquvo 10 mg Tablet 10 mg PO DAILY Rx Instructions: must administer with a meal/food pantoprazole [Protonix] 40 mg tablet,delayed release (DR/EC) 40 mg PO BID Qty: 60 0RF Eliquis 5 mg tablet 2.5 mg PO BID Qty: 1 0RF Referrals Referrals: Gabby Maddox MD [Primary Care Provider] -
--- NOTE | 2022-09-26 17:46 | XRay Report ---
XR chest 1V portable CLINICAL HISTORY: stroke alert TECHNIQUE: Single frontal radiograph of the chest was obtained. Comparison: Comparison is made to chest radiograph 06/05/2022 FINDINGS: Pacemaker defibrillator is seen. Cardiomegaly is noted. The lungs are clear. No evidence of pleural e ffusion or pneumothorax. IMPRESSION: No acute chest disease. ACT 112: Negative or not required by law. Electronically signed by: Nick Bird M.D. 09/26/2022 5:45 PM
[2022-09-26 17:50] LABS: Alanine Aminotransferase 40 U/L (7-52); Albumin Globulin Ratio 1.4 (0.9-2); Albumin Level 4.2 gm/dl (3.4-5.0); Alkaline Phosphatase 125 U/L (34-104); Anion Gap 16 (3-11); Aspartate Aminotransferase 27 U/L (13-39); BUN Creatinine Ratio 36.1 (10-20); Bilirubin,Total 0.9 mg/dl (0.2-1.0); Blood Urea Nitrogen 114 mg/dl (6-23); Calcium 9.9 mg/dl (8.6-10.3); Carbon Dioxide 30 mmol/L (21-32); Chloride 87 mmol/L (98-107); Est GFR (African American) 16.2 ml/min; Globulin 2.9 gm/dl (2.5-4.0); Glucose 199 mg/dl (70-99(Fasting)); Magnesium 2.7 mg/dl (1.7-2.4); Potassium 3.7 mmol/L (3.5-5.1); Sodium 133 mmol/L (136-145); Total Protein 7.1 gm/dl (6.0-8.3)
[2022-09-26 18:07] LABS: Partial Thromboplastin Ratio 0.8; Partial Thromboplastin Time 22.9 Seconds (21.0-31.0); Prothrombin Time 11.2 Seconds (9.0-12.0)
--- NOTE | 2022-09-26 18:21 | CT Scan Report ---
CT head/brain wo con CLINICAL HISTORY: trauma Technique: Contiguous axial CT images of the head were acquired from the base of the skull to the catina linda without intravenous contrast administration. Images were viewed in brain, subdural and bone [facility] . Automated dose lowering techniques and/or adjustment according to patient size were utilized for this exam. Comparison: None available at the time of this dictation. Findings: The ventricles, basal cisterns, and cerebral sulci are normal. There is no acute intracranial hemorrh age or evidence of acute territorial infarction. Neither mass effect, shift of the midline structures , nor abnormal extra-axial fluid collections are shown. Imaged portions of the paranasal sinuses and mastoid air cells are clear. The orbits appear normal. There are no acute fractures of the calvaria or scalp swelling. Impression: No acute intracranial hemorrhage, no evidence of acute territorial infarction or other acute intracra nial disease process. ACT 112: Negative or not required by law. Electronically signed by: Nick Bird M.D. 09/26/2022 6:19 PM
[2022-09-26] MEDS ORDERED: SODIUM CHLORIDE 0.9% 1000ML 1,000 ML IV ONE (18:47)
[2022-09-26 19:17] LABS: Appearance Urine Cloudy (Clear); Bacteria Urine Automated Negative (Negative); Bilirubin Urine Negative (Negative); Blood Urine 2+ (Negative); Color Urine Yellow; Epithelial Cell Urine Auto >30 /lpf (0-5); Glucose Urine UA 3+ (Negative); Ketones Urine Negative (Negative); Leukocyte Esterase Urine Negative (Negative); Nitrite Urine Negative (Negative); Protein Urine 2+ (Negative); RBC Urine Automated 0-4 /hpf (0-4); Specific Gravity Urine 1.014 (1.000-1.030); Urobilinogen Urine Negative (Negative)
--- NOTE | 2022-09-26 21:58 | History & Physical Report ---
Date of Service September 26, 2022 Assessment & Plan (1) Weakness: Plan: 72-year-old female presents with weakness and falls. Weakness and falls Says right lower extremity getting progressively more weak CT head is okay Received fluids in the ER for possible dehydration We will monitor in the hospital and do PT OT. Elevated troponin Troponin 254 Patient asymptomatic Chronic elevated but usually in the 70s range We will monitor on telemetry floor We will follow serial cardiac enzymes and will do echocardiogram Consult cardiology in a.m. because of history of cardiac disease. Chronic kidney disease stage IV Metabolic acidosis Creatinine 3.1 around baseline we will consult nephrology in a.m. History of CAD s/p CABG On Coreg, Eliquis and ranolazine History of chronic systolic CHF On Bumex Potassium supplements we will follow the labs On Coreg,verquo We will monitor for volume overload Diabetes We will continue insulin pump Pharmacy consult Hyperlipidemia continue Crestor Breast cancer S/p surgery on Anastrozole Leukocytosis No obvious source of infection Possible reactive We will follow repeat labs. Anemia of chronic disease Hemoglobin 13.1 we will follow the labs A-fib On Coreg and Eliquis. DVT prophylaxis On Eliquis. Disposition Monitoring telemetry. CODE STATUS okay for CPR and meds but no intubation as per my discussion with the patient. (2) Elevated troponin: History of Present Illness Chief Complaint: Weakness and falls Primary Care Provider: Gabby Maddox MD This is 72-year-old female with past medical history significant for type 2 diabetes on oral meds and insulin pump, moderate persistent asthma, hyperlipidemia, hypertension, obstructive sleep apnea on CPAP, extensive cardiac history, ischemic cardiomyopathy with a EF of 20 to 34% on September 2021 echo, iron deficiency anemia, chronic kidney disease stage IV, anemia currently disease, history of right breast cancer s/p partial right mastectomy and currently on anastrozole who lives at home with her daughter presents with weakness and falls. Patient states she has right lower extremity weakness for some time but since last 1 week it got worse, the leg giving away and she is falling down. That is the reason she came to the ER today. Denies any chest pain or shortness of breath. No nausea or vomiting. No abdominal pain. Normal bowel and bladder movements. No headache or dizziness. Vision is okay. No runny nose no sore throat no cough no earaches. No difficulty swallowing. Currently hemodynamica lly stable resting comfortably. Daughter is in the room. Past medical history as mentioned above Past surgical history biopsy of the breast, CABG, cardiac angioplasty, cardiac caths, carpal tunnel surgery, , colonoscopy, combined right and left heart cath, EGD, EGD with endoscopic ultrasound, stent to right coronary artery, iliac artery angiography, s/p defibrillator, right partial mastectomy, s/p radiation treatment, tonsillectomy, cataract surgery Allergies Allergy/AdvReac Type Severity Reaction Status Date / Time tramadol Allergy Severe Anaphylaxis Verified 06/02/22 16:16 dopamine Allergy Unknown CAN'T Verified 06/02/22 16:16 REMEMBER morphine AdvReac Severe SEVERE Verified 06/02/22 16:16 VOMITING--"SICKER THAN A DOG" gabapentin AdvReac Intermediate INCREASED Verified 06/02/22 16:16 LEG EDEMA lisinopril AdvReac Intermediate Cough Verified 06/02/22 16:16 rofecoxib AdvReac Intermediate SWELLING Verified 06/02/22 16:16 OF ANKLES/FEET Home Medications Medication Instructions Recorded Confirmed Type acetaminophen 500 mg tablet 1,000 mg PO BID PRN Pain 06/02/22 09/26/22 History (Tylenol Extra Strength) allopurinol 300 mg tablet 300 mg PO QAM 06/02/22 09/26/22 History anastrozole 1 mg tablet 1 mg PO QAM 06/02/22 09/26/22 History bumetanide 1 mg tablet 1 mg PO BID 06/02/22 09/26/22 History dulaglutide 3 mg/0.5 mL 3 mg subcut WK 06/02/22 09/26/22 History subcutaneous pen injector ([facility]) empagliflozin 10 mg tablet 10 mg PO QAM 06/02/22 09/26/22 History fluticasone propionate 230 2 puff inhalation BID PRN Other 06/02/22 09/26/22 History mcg-salmeterol 21 mcg/actuation HFA inhaler (Advair HFA) folic acid 1 mg tablet 1 mg PO QAM 06/02/22 09/26/22 History insulin aspart U-100 100 unit/mL 1 sliding scale dose continuous 06/02/22 09/26/22 History subcutaneous solution subcutaneous infusion CONTINOUS lorazepam 0.5 mg tablet 0.5 mg PO HS PRN Insomnia 06/02/22 09/26/22 History nitroglycerin 0.4 mg sublingual 0.4 mg sublingual DIRECTED PRN 06/02/22 09/26/22 History tablet (Nitrostat) Chest Pain ranolazine 500 mg tablet,extended 500 mg PO BID 06/02/22 09/26/22 History release,12 hr rosuvastatin 40 mg tablet (Crestor) 40 mg PO HS 06/02/22 09/26/22 History vericiguat 10 mg tablet (Verquvo) 5 mg PO DAILY 06/02/22 09/26/22 History apixaban 5 mg tablet (Eliquis) 2.5 mg PO BID #1 tab 06/06/22 09/26/22 Rx pantoprazole 40 mg tablet,delayed 40 mg PO BID #60 tabs 06/06/22 09/26/22 Rx release (Protonix) carvedilol 6.25 mg tablet 6.25 mg PO BID 09/26/22 09/26/22 History diltiazem HCl 120 mg 120 mg PO DAILY 09/26/22 09/26/22 History capsule,extended release 24 hr potassium chloride 20 mEq 40 meq PO BID 09/26/22 09/26/22 History tablet,extended release(part/cryst) Past Med/Surg History Medical History CKD (chronic kidney disease), stage IV Elevated troponin ICD (implantable cardioverter-defibrillator), single, in situ Ischemic cardiomyopathy Symptomatic anemia Family History (Updated 09/26/22 @ 22:04 by Farhad Parrish MD) Mother Diabetes Coronary heart disease Hypertension Ovarian cancer Father Coronary heart disease Hypertension Sister Breast cancer Social History Smoking Status: Never smoker Second Hand Exposure: No; Do You Dip or Chew Tobacco: No; Hx Alcohol Use: No Hx Substance Use: No Preferred Language: Montenegrin Communication Ability: Effective Principal Developer Required: No Beliefs That Will Affect Care: None Current Living Situation: Alone Feels Safe at Home: Yes Assistive Devices: None Review of Systems Review of Systems: All systems reviewed & are unremarkable except as noted in Subjective Physical Exam Physical Exam: NEEDS EDITING General- adult Head- atraumatic Eyes- PERRL, ENT- oropharynx clear Neck- supple, no JVD, Lungs- clear to auscultation and percussion Heart- regular rhythm; no murmur, no gallop, no rub appreciated Abdomen- normal bowel sounds, soft, nontender, no masses or hepatosplenomegaly Extremities- no pretibial edema, no erythema. Neuro- alert, oriented x 3; PERRL, EOMI; no facial palsy; no dysarthria; power 5/5 let lower extremity 4-5/5 in right lower extremity, sensations intact Skin- warm & dry Results & Data Results & Data Vital Signs (Past 12 Hours) Vital Signs Temp Pulse Pulse Resp BP BP Pulse Ox 09/26/22 21:30 78 16 09/26/22 20:35 72 22 153/68 H 94 09/26/22 20:30 78 20 96 09/26/22 19:00 77 24 155/69 H 94 09/26/22 17:58 87 09/26/22 17:49 09/26/22 17:49 80 19 151/74 H 94 09/26/22 17:49 09/26/22 15:53 36.3 C L 86 20 138/79 99 O2 Del Method 09/26/22 21:30 09/26/22 20:35 Room Air 09/26/22 20:30 Room Air 09/26/22 19:00 Room Air 09/26/22 17:58 09/26/22 17:49 Room Air 09/26/22 17:49 Room Air 09/26/22 17:49 Room Air 09/26/22 15:53 Room Air Diagnostic Findings Laboratory Results WBC 15.05 K/ul (4.8-10.8) H 09/26/22 16:52 RBC 4.86 M/uL (4.20-5.40) 09/26/22 16:52 Hgb 13.1 g/dl (12.0-16.0) 09/26/22 16:52 Hct 40.0 % (37.0-47.0) 09/26/22 16:52 MCV 82.3 fL (80.0-100.0) 09/26/22 16:52 MCH 27.0 pg (25.0-34.0) 09/26/22 16:52 MCHC 32.8 g/dL (32.0-36.0) 09/26/22 16:52 RDW Std Deviation 59.0 fL (36.4-46.3) H 09/26/22 16:52 RDW Coeff of Vasu 20.0 % (11.5-14.5) H 09/26/22 16:52 Plt Count 173 K/uL (130-400) 09/26/22 16:52 MPV 10.5 fL (9.4-12.4) 09/26/22 16:52 PT 11.2 Seconds (9.0-12.0) 09/26/22 16:52 INR 1.0 (0.9-1.1) 09/26/22 16:52 APTT 22.9 Seconds (21.0-31.0) 09/26/22 16:52 PTT Ratio 0.8 09/26/22 16:52 Sodium 133 mmol/L (136-145) L 09/26/22 16:52 Potassium 3.7 mmol/L (3.5-5.1) 09/26/22 16:52 Chloride 87 mmol/L (98-107) L 09/26/22 16:52 Carbon Dioxide 30 mmol/L (21-32) 09/26/22 16:52 Anion Gap 16 (3-11) H 09/26/22 16:52 BUN 114 mg/dl (6-23) H 09/26/22 16:52 Creatinine 3.16 mg/dl (0.6-1.2) H 09/26/22 16:52 Est Cr Clr Drug Dosing Not Reportable 09/26/22 16:52 Est GFR ( Amer) 16.2 ml/min 09/26/22 16:52 Est GFR (Non-Af Amer) 14.0 ml/min 09/26/22 16:52 BUN/Creatinine Ratio 36.1 (10-20) H 09/26/22 16:52 Glucose 199 mg/dl (70-99(Fasting)) H 09/26/22 16:52 Calcium 9.9 mg/dl (8.6-10.3) 09/26/22 16:52 Magnesium 2.7 mg/dl (1.7-2.4) H 09/26/22 16:52 Total Bilirubin 0.9 mg/dl (0.2-1.0) 09/26/22 16:52 AST 27 U/L (13-39) 09/26/22 16:52 ALT 40 U/L (7-52) 09/26/22 16:52 Alkaline Phosphatase 125 U/L (34-104) H 09/26/22 16:52 Troponin I High Sens 254.8 pg/ml (0-14) H* 09/26/22 19:06 Total Protein 7.1 gm/dl (6.0-8.3) 09/26/22 16:52 Albumin 4.2 gm/dl (3.4-5.0) 09/26/22 16:52 Globulin 2.9 gm/dl (2.5-4.0) 09/26/22 16:52 Albumin/Globulin Ratio 1.4 (0.9-2) 09/26/22 16:52 TSH 1.086 uIu/ml (0.300-4.500) 09/26/22 16:52 Urine Color Yellow 09/26/22 16:32 Urine Appearance Cloudy (Clear) A 09/26/22 16:32 Urine pH 5.0 (4.5-7.5) 09/26/22 16:32 Ur Specific [place] 1.014 (1.000-1.030) 09/26/22 16:32 Urine Protein 2+ (Negative) H 09/26/22 16:32 Urine Glucose (UA) 3+ (Negative) H 09/26/22 16:32 Urine Ketones Negative (Negative) 09/26/22 16:32 Urine Blood 2+ (Negative) H 09/26/22 16:32 Urine Nitrite Negative (Negative) 09/26/22 16:32 Urine Bilirubin Negative (Negative) 09/26/22 16:32 Urine Urobilinogen Negative (Negative) 09/26/22 16:32 Ur Leukocyte Esterase Negative (Negative) 09/26/22 16:32 Urine WBC (Auto) 5-10 /hpf (0-5) H 09/26/22 16:32 Urine RBC (Auto) 0-4 /hpf (0-4) 09/26/22 16:32 U Hyaline Cast (Auto) 1-5 /lpf (0-5) 09/26/22 16:32 U Epithel Cells (Auto) >30 /lpf (0-5) H 09/26/22 16:32 Urine Bacteria (Auto) Negative (Negative) 09/26/22 16:32 Granular Casts 1-5 /lpf (0) H 09/26/22 16:32 Urine Yeast Not Reportable 09/26/22 16:32 SARS-CoV-2, RNA, NAAT NEGATIVE (NEGATIVE) 09/26/22 17:44 Impressions Chest X-Ray 09/26/22 15:56 XR chest 1V portable CLINICAL HISTORY: stroke alert TECHNIQUE: Single frontal radiograph of the chest was obtained. Comparison: Comparison is made to chest radiograph 06/05/2022 FINDINGS: Pacemaker defibrillator is seen. Cardiomegaly is noted. The lungs are clear. No evidence of pleural effusion or pneumothorax. IMPRESSION: No acute chest disease. ACT 112: Negative or not required by law. Electronically signed by: Nick iBrd M.D. 09/26/2022 5:[address] 09/26/22 17:15 CT head/brain wo con CLINICAL HISTORY: trauma Technique: Contiguous axial CT images of the head were acquired from the base of the skull to the vertex without intravenous contrast administration. Images were viewed in brain, subdural and bone windows. Automated dose lowering techniques and/or adjustment according to patient size were utilized for this exam. Comparison: None available at the time of this dictation. Findings: The ventricles, basal cisterns, and cerebral sulci are normal. There is no acute intracranial hemorrhage or evidence of acute territorial infarction. Neither mass effect, shift of the midline structures, nor abnormal extra-axial fluid collections are shown. Imaged portions of the paranasal sinuses and mastoid air cells are clear. The orbits appear normal. There are no acute fractures of the calvaria or scalp swelling. Impression: No acute intracranial hemorrhage, no evidence of acute territorial infarction or other acute intracranial disease process. ACT 112: Negative or not required by law. Electronically signed by: Nick Bird M.D. 09/26/2022 6:19 PM ECG Additional Comments: ECG A-fib at a rate of 89, incomplete right bundle branch block, ST changes seen ,no significant change from previous Code Status & VTE Plan VTE Prophylaxis Plan VTE Prophylaxis will be ordered: Yes
[2022-09-26] MEDS ORDERED: NITROGLYCERIN SL 0.4 MG/TAB TAB SL PRN ×2 (22:39)
[2022-09-26] MEDS ORDERED: NON-FORMULARY MEDICATION (Fluticasone Propion-Salmeterol [Advair Hfa] 230-21 mcg/actuation INH PRN (22:39)
[2022-09-26] MEDS ORDERED: POLYETHYLENE (MIRALAX) 17 GM PACK PO PRN (22:39)
[2022-09-26] MEDS ORDERED: GLUCOSE 40% GEL 15 GM TUBE PO PRN (22:39)
[2022-09-26] MEDS ORDERED: CARBOHYDRATES FOR HYPOGLYCEMIA PO PRN (22:39)
[2022-09-26] MEDS ORDERED: INSULIN ASPART PER UNIT CHARGE SC SCH (22:39)
[2022-09-26] MEDS ORDERED: LORazepam 0.5 MG TAB PO PRN (22:39)
[2022-09-26] MEDS ORDERED: DEXTROSE 50% 50 ML SYRINGE IV PRN (22:39)
[2022-09-26] MEDS ORDERED: PHARMACY GLYCEMIC MGMT CONSULT PRN (22:39)
[2022-09-26] MEDS ORDERED: ACETAMINOPHEN 500 MG TAB PO PRN (22:39)
[2022-09-26] MEDS ORDERED: ACETAMINOPHEN 325 MG TAB PO PRN (22:39)
[2022-09-26] MEDS ORDERED: GLUCAGON FOR INJ 1 MG VIAL SQ PRN (22:39)
[2022-09-26] MEDS ORDERED: GLUCOSE 10 TAB/TUBE PO PRN (22:39)
[2022-09-26] MEDS ORDERED: INSULIN ASPART 100 UNITS/ML VIAL SC PRN (23:30)
[2022-09-26] MEDS: carvediloL 6.25 MG TAB PO SCH (23:46)
[2022-09-26] MEDS: APIXABAN 2.5 MG TAB PO SCH (23:47)
[2022-09-27] MEDS: INSULIN, Rapid-Acting PUMP SCH ×5 (00:18→20:42)
[2022-09-27 05:54] LABS: Basophils # (auto) 0.03 K/uL (0-0.2); Basophils % (auto) 0.2 %; Immature Granulocytes # (auto) 0.31 K/uL (0.01-0.20); Immature Granulocytes % (auto) 2.6 %; Lymphocytes # (auto) 0.91 K/uL (1.2-3.4); Lymphocytes % (auto) 7.6 %; Mean Corpuscular Hgb Conc 33.3 g/dL (32.0-36.0); Mean Corpuscular Volume 80.9 fL (80.0-100.0); Mean Platelet Volume 10.5 fL (9.4-12.4); Monocytes # (auto) 0.88 K/uL (0.11-0.59); Monocytes % (auto) 7.3 %; Neutrophils % (auto) 82.3 %; Platelet Count 146 K/uL (130-400); RDW Coefficient of Variation 19.9 % (11.5-14.5); RDW Standard Deviation 57.9 fL (36.4-46.3); Red Blood Count 4.45 M/uL (4.20-5.40); White Blood Count 12.03 K/ul (4.8-10.8)
[2022-09-27 06:07] LABS: BUN Creatinine Ratio 34.9 (10-20); Calcium 9.8 mg/dl (8.6-10.3); Creatinine Clr Calc Pharmacy 15.5 ml/min; Est GFR (African American) 15.6 ml/min; Est GFR (Non-African American) 13.4 ml/min; Magnesium 2.6 mg/dl (1.7-2.4); Potassium 3.3 mmol/L (3.5-5.1)
[2022-09-27] MEDS ORDERED: INSULIN ASPART PER UNIT CHARGE SC SCH (07:30)
[2022-09-27] MEDS: carvediloL 6.25 MG TAB PO SCH (08:46)
[2022-09-27] MEDS: APIXABAN 2.5 MG TAB PO SCH ×2 (08:46→20:37)
[2022-09-27] MEDS: FOLIC ACID 1 MG TAB PO SCH (08:47)
[2022-09-27] MEDS: BUMETANIDE 1 MG TAB PO SCH ×2 (08:47→17:18)
[2022-09-27] MEDS: PANTOprazole 40 MG TAB PO SCH ×2 (08:47→20:38)
[2022-09-27] MEDS: POTASSIUM CHLORIDE CRTAB 20 MEQ TABCR PO SCH ×2 (08:57→17:18)
[2022-09-27] MEDS: ANASTROZOLE 1 MG TAB PO SCH (08:57)
[2022-09-27] MEDS: RANOLAZINE 500 MG ER TAB PO SCH ×2 (08:57→20:38)
[2022-09-27] MEDS: allopurinoL 300 MG TAB PO SCH (09:00)
[2022-09-27] MEDS ORDERED: dilTIAZem HCL 120 MG CAPCR PO SCH (09:00)
[2022-09-27] MEDS: FLUTICASONE/VILANTEROL 200/25MCG 14 PUFFS/INHALER INH SCH (09:02)
[2022-09-27 09:33] LABS: Estimated Average Glucose 240 mg/dl
--- NOTE | 2022-09-27 10:01 | Nephrology Consultation ---
Date of Consultation September 27, 2022 Assessment & Plan (1) Weakness: Unclear etiology but I doubt this is a case of volume depletion as the cause of weakness. Do not give more IV fluid. She has gen weakness especially her legs making her to weak to stand and walk--causing fall. Needs some PT. (2) CKD (chronic kidney disease), stage IV: Current creatinine is about baseline however BUN is somewhat higher than ideal at 114. Continue current dose of Bumex 2 mg in AM and 1 in PM. Discharge at the same dose. Continue daily labs and input and output chart. I will continue to follow the patient. I have known her for a long time and patient and her daughter feels comfortable with me. K slightly low--give 20 meq (3) Falling: As per primary team (4) Ischemic cardiomyopathy: She has very extensive cardiac problems with numerous cardiac stents and low ejection fraction. Multiple admissions in the recent past for congestive heart failure. However at this time does not appear to be in any significant congestive heart failure. Continue current diuretic (5) Elevated troponin: As per primary team/cardiology History of Present Illness Reason for Consultation: CKD 4 And diuretics managemanet Attending Physician: Racquel Shah MD History of Present Illness Patient is a 72-year-old female who is well-known to me. She has CKD 4 secondary to longstanding diabetes as well as ischemic cardiomyopathy. She has had numerous stents placed and has EF of around 25 to 30%. She has had numerous admission in the past for CHF and she is closely followed by cardiology and nephrology clinic. This time she came in with nonspecific weakness especially in the right lower limb associated with some fall. Patient also recently had breast cancer and surgery and is currently on anastrozole. Her creatinine at this time is within her baseline range which does fluctuate a lot based on hydration status. However BUN is elevated at 114. Her clinical presentation vital signs and x-ray is not showing CHF at this time. She briefly got some IV fluid but currently not getting. She is getting Bumex 1 mg twice daily current. Symptoms are about the same. CT head was also done and was unremarkable. Review of system-----denies nausea vomiting chest pain shortness of breath orthopnea PND or worsening lower extremity edema. Denies headache skin rash itching acute pain anywhere. Only positive review of system was increasing weakness unsteadiness fall special involving right lower extremity. Total of 12 systems reviewed and negative Allergies Allergy/AdvReac Type Severity Reaction Status Date / Time tramadol Allergy Severe Anaphylaxis Verified 06/02/22 16:16 dopamine Allergy Unknown CAN'T Verified 06/02/22 16:16 REMEMBER morphine AdvReac Severe SEVERE Verified 06/02/22 16:16 VOMITING--"SICKER THAN A DOG" gabapentin AdvReac Intermediate INCREASED Verified 06/02/22 16:16 LEG EDEMA lisinopril AdvReac Intermediate Cough Verified 06/02/22 16:16 rofecoxib AdvReac Intermediate SWELLING Verified 06/02/22 16:16 OF ANKLES/FEET Home Medications Medication Instructions Recorded Confirmed Type acetaminophen 500 mg tablet 1,000 mg PO BID PRN Pain 06/02/22 09/26/22 History (Tylenol Extra Strength) allopurinol 300 mg tablet 300 mg PO QAM 06/02/22 09/26/22 History anastrozole 1 mg tablet 1 mg PO QAM 06/02/22 09/26/22 History bumetanide 1 mg tablet 1 mg PO BID 06/02/22 09/26/22 History dulaglutide 3 mg/0.5 mL 3 mg subcut WK 06/02/22 09/26/22 History subcutaneous pen injector ([facility]) empagliflozin 10 mg tablet 10 mg PO QAM 06/02/22 09/26/22 History fluticasone propionate 230 2 puff inhalation BID PRN Other 06/02/22 09/26/22 History mcg-salmeterol 21 mcg/actuation HFA inhaler (Advair HFA) folic acid 1 mg tablet 1 mg PO QAM 06/02/22 09/26/22 History insulin aspart U-100 100 unit/mL 1 sliding scale dose continuous 06/02/22 09/26/22 History subcutaneous solution subcutaneous infusion CONTINOUS lorazepam 0.5 mg tablet 0.5 mg PO HS PRN Insomnia 06/02/22 09/26/22 History nitroglycerin 0.4 mg sublingual 0.4 mg sublingual DIRECTED PRN 06/02/22 09/26/22 History tablet (Nitrostat) Chest Pain ranolazine 500 mg tablet,extended 500 mg PO BID 06/02/22 09/26/22 History release,12 hr rosuvastatin 40 mg tablet (Crestor) 40 mg PO HS 06/02/22 09/26/22 History vericiguat 10 mg tablet (Verquvo) 5 mg PO DAILY 06/02/22 09/26/22 History apixaban 5 mg tablet (Eliquis) 2.5 mg PO BID #1 tab 06/06/22 09/26/22 Rx pantoprazole 40 mg tablet,delayed 40 mg PO BID #60 tabs 06/06/22 09/26/22 Rx release (Protonix) carvedilol 6.25 mg tablet 6.25 mg PO BID 09/26/22 09/26/22 History diltiazem HCl 120 mg 120 mg PO DAILY 09/26/22 09/26/22 History capsule,extended release 24 hr potassium chloride 20 mEq 40 meq PO BID 09/26/22 09/26/22 History tablet,extended release(part/cryst) Patient History Medical History CKD (chronic kidney disease), stage IV Elevated troponin ICD (implantable cardioverter-defibrillator), single, in situ Ischemic cardiomyopathy Symptomatic anemia Family History Mother Diabetes Coronary heart disease Hypertension Ovarian cancer Father Coronary heart disease Hypertension Sister Breast cancer Social History Smoking Status: Former smoker Second Hand Exposure: No; Do You Dip or Chew Tobacco: No; Hx Alcohol Use: No Hx Substance Use: No Preferred Language: Bruneian Communication Ability: Effective Stone Splitter Required: No Beliefs That Will Affect Care: None Current Living Situation: Family Current Living Situation Comment: Lives at home with daughter who is her primary caregiver Other Information That Helps Us Care for You: No Feels Safe at Home: Yes Safety Concerns: Feels Safe At This Time Assistive Devices: Walker Physical Exam Physical Exam: Awake and alert. NO distress Neck: Supple. No JVD Respiratory: b/l clear. No distress Cardiovascular: RRR. Soft Bianka murmur Gastrointestinal (Abdomen): Soft non tender. Obese. Skin: No rash Results & Data Vital Signs (Past 12 Hours) Vital Signs Temp Pulse Pulse Resp BP BP Pulse Ox 09/27/22 07:35 36.7 C 72 18 112/68 93 09/27/22 02:59 36.4 C L 66 18 110/53 L 95 07/12/23 02:06 09/26/22 23:43 77 09/27/22 00:23 77 23 94 09/26/22 22:30 36.9 C 84 18 169/88 H 94 09/26/22 22:00 78 21 144/88 H 97 O2 Del Method 09/27/22 07:35 Room Air 09/27/22 02:59 Room Air 09/27/22 02:06 Room Air 09/26/22 23:43 09/27/22 00:23 09/26/22 22:30 Room Air 09/26/22 22:00 Room Air Laboratory Results Reviewed in detail
--- NOTE | 2022-09-27 14:09 | Cardiology Consultation ---
Date of Consultation September 27, 2022 Assessment & Plan (1) Weakness: (2) Elevated troponin: (3) Falling: (4) Acute dehydration: (5) CRF (chronic renal failure): (6) Ischemic cardiomyopathy: (7) CKD (chronic kidney disease), stage IV: Plan Complex 72-year-old female admitted for evaluation of weakness. History suggests symptomatic orthostatic hypotension and significant deconditioning. Elevated troponin noted without significant EKG changes or associated symptoms, in the absence of an acute coronary syndrome and in the presence of significant renal dysfunction. Resting echocardiography pending interpretation. Heart rates adequately controlled with patient appropriately anticoagulated with reduced dose apixaban 2.5 mg twice per day. I am concerned regarding the use of diltiazem in the setting of HFrEF as well as the use of Ranexa in the setting of significantly altered kidney function with note made that neurologic adverse effects have been observed in this situation. I think it may be best to consider switching carvedilol and diltiazem to metoprolol succinate. Patient prescribed Verquvo which may preclude the use of long acting nitrates (excluded from the study). Further recommendations pending echocardiography interpretation, evaluation by Dr. Hayden, and patient's ongoing hospitalization. Supervising Physician Co-Signing Physician Notes 72-year-old female admitted with weakness. Denies chest pain, unusual shortness of breath, lightheadedness, dizziness, syncope, or near syncope. Chronic lower extremity edema unchanged. No signs/symptoms of GI/ blood loss. PE: VSS. Gen: NAD, AAO x3. Heart: Irregular rhythm, normal S1-S2. 2/6 systolic ejection murmur heard best at the base. Lungs: Clear bilateral. No rales, rhonchi, wheeze. Extremities: Mild bilateral pedal edema. A/P: Agree with above PA-C history, physical exam, assessment and plan. Recommend optimization of current evidence-based heart failure therapies. Discontinue oral diltiazem. Hold carvedilol. We will transition to Toprol-XL 25 mg 3 times daily. Continue telemetry monitoring. Other cardiovascular meds will be continued as previously ordered. History of Present Illness Reason for Consultation: Elevated troponin Requesting Physician: Shivani Attending Physician: Pablo History of Present Illness Ms. Felecia Bruno is a very pleasant 72-year-old female who was admitted to [facility] on September 26, 2022 with weakness. The patient describes, when attempting to get up and walk, weakness and shaking in the lower extremities, right greater than left, at times associated with dizziness. The legs then seem to give way and she falls. Cardiology consultation requested due to elevated troponin. High-sensitivity troponin I elevated at 254.8, 236.1, 249.6, and 251.1 pg/mL. Creatinine 3.27. Admission EKG with atrial fibrillation with a ventricular rate of 89 bpm, incomplete right bundle branch block, LVH, old inferior infarct, diffuse STT wave abnormality with lateral ST depression. EKG this morning revealed atrial fibrillation with a ventricular rate of 78 bpm with an incomplete right bundle branch block, voltage criteria for LVH, old inferior infarct. Chest x-ray showed no active disease in the chest. Resting echocardiography is currently pending interpretation by staffing and scheduling coordinator. Patient notes "there ain't nothing going on with my heart." Notes following with [facility], next follow-up planned October 11, 2022. She specifically denies chest pain, palpitations, or increased shortness of breath. No nausea vomiting or diarrhea. Normal bowel movements. No dysuria. No speech issues. No associated right upper extremity weakness. No headaches. No visual changes. Past Medical and Surgical History: 1. Chronic ischemic heart disease status post initial coronary bypass grafting 1989 with acute LANDERS graft closure requiring repeat surgery 1990 2. Chronic angina pectoris with multiple coronary interventions most recent September 2020 proximal and distal right coronary artery and RPL. 3. Cardiac catheterization last performed September 2021. All grafts are known to be occluded. Patent stents in the right coronary artery left main and left ci rcumflex. Procedure complicated by acute respiratory failure requiring mechanical ventilation 4. Ischemic cardiomyopathy with severely reduced ejection fraction EF 25 %, class III congestive heart failure 5. Status post pacer defibrillator initially placed 2008 most recent generator exchange 2017, Medtronic TVF B1 D1 6. Atherosclerotic carotid artery disease status post right carotid artery kameron nt 2003, left internal carotid artery stent 2012 7. Atherosclerotic peripheral vascular disease with multiple interventions including left innominate artery stenting, left SFA/popliteal artery atherectomy and angioplasty 2018, left femoral-popliteal bypass 8. CKD stage IV 9. Type 2 diabetes mellitus insulin requiring 10. Multiple pulmonary nodules, chest x-ray, CT chest September 2021, December 2021 question metastatic disease versus inflammatory 11. Breast carcinoma status post right partial mastectomy February 2021, radiation therapy. On hormonal suppression 12. Obstructive sleep apnea on chronic CPAP supplementation 13. Paroxysmal atrial fibrillation on chronic anticoagulation with apixaban Family History: Father had his first MD at 39, passing at 72 with another MD. Mother with CAD MD at 62, also with ovarian cancer. Social History: Reformed smoker. Lives with daughter who was present for entire consultation. Retired. Allergies Allergy/AdvReac Type Severity Reaction Status Date / Time tramadol Allergy Severe Anaphylaxis Verified 06/02/22 16:16 dopamine Allergy Unknown CAN'T Verified 06/02/22 16:16 REMEMBER morphine AdvReac Severe SEVERE Verified 06/02/22 16:16 VOMITING--"SICKER THAN A DOG" gabapentin AdvReac Intermediate INCREASED Verified 06/02/22 16:16 LEG EDEMA lisinopril AdvReac Intermediate Cough Verified 06/02/22 16:16 rofecoxib AdvReac Intermediate SWELLING Verified 06/02/22 16:16 OF ANKLES/FEET Home Medications Medication Instructions Recorded Confirmed Type acetaminophen 500 mg tablet 1,000 mg PO BID PRN Pain 06/02/22 09/26/22 History (Tylenol Extra Strength) allopurinol 300 mg tablet 300 mg PO QAM 06/02/22 09/26/22 History anastrozole 1 mg tablet 1 mg PO QAM 06/02/22 09/26/22 History bumetanide 1 mg tablet 1 mg PO BID 06/02/22 09/26/22 History dulaglutide 3 mg/0.5 mL 3 mg subcut WK 06/02/22 09/26/22 History subcutaneous pen injector (Trulicity) empagliflozin 10 mg tablet 10 mg PO QAM 06/02/22 09/26/22 History fluticasone propionate 230 2 puff inhalation BID PRN Other 06/02/22 09/26/22 History mcg-salmeterol 21 mcg/actuation HFA inhaler (Advair HFA) folic acid 1 mg tablet 1 mg PO QAM 06/02/22 09/26/22 History insulin aspart U-100 100 unit/mL 1 sliding scale dose continuous 06/02/22 09/26/22 History subcutaneous solution subcutaneous infusion CONTINOUS lorazepam 0.5 mg tablet 0.5 mg PO HS PRN Insomnia 06/02/22 09/26/22 History nitroglycerin 0.4 mg sublingual 0.4 mg sublingual DIRECTED PRN 06/02/22 09/26/22 History tablet (Nitrostat) Chest Pain ranolazine 500 mg tablet,extended 500 mg PO BID 06/02/22 09/26/22 History release,12 hr rosuvastatin 40 mg tablet (Crestor) 40 mg PO HS 06/02/22 09/26/22 History vericiguat 10 mg tablet (Verquvo) 5 mg PO DAILY 06/02/22 09/26/22 History apixaban 5 mg tablet (Eliquis) 2.5 mg PO BID #1 tab 06/06/22 09/26/22 Rx pantoprazole 40 mg tablet,delayed 40 mg PO BID #60 tabs 06/06/22 09/26/22 Rx release (Protonix) carvedilol 6.25 mg tablet 6.25 mg PO BID 09/26/22 09/26/22 History diltiazem HCl 120 mg 120 mg PO DAILY 09/26/22 09/26/22 History capsule,extended release 24 hr potassium chloride 20 mEq 40 meq PO BID 09/26/22 09/26/22 History tablet,extended release(part/cryst) Patient History Medical History CKD (chronic kidney disease), stage IV Elevated troponin ICD (implantable cardioverter-defibrillator), single, in situ Ischemic cardiomyopathy Symptomatic anemia Family History Mother Diabetes Coronary heart disease Hypertension Ovarian cancer Father Coronary heart disease Hypertension Sister Breast cancer Social History Smoking Status: Former smoker Second Hand Exposure: No; Do You Dip or Chew Tobacco: No; Hx Alcohol Use: No Hx Substance Use: No Preferred Language: Latvian Communication Ability: Effective Design Sales Consultant Required: No Beliefs That Will Affect Care: None Current Living Situation: Family Current Living Situation Comment: Lives at home with daughter who is her primary caregiver Other Information That Helps Us Care for You: No Feels Safe at Home: Yes Safety Concerns: Feels Safe At This Time Assistive Devices: CPAP and Walker Review of Systems Review of Systems: Complete review of systems is otherwise as stated above, negative, noncontributory. Physical Exam Physical Exam: General: A&Ox3. NAD. HENT: Normocephalic. Atraumatic. Eyes: PER. Conjunctiva pink, sclera injected. Neck: Bilateral carotid bruits. No JVD. No HJR. Heart: Irregularly irregular at 80 bpm. Systolic murmur. No diastolic murmur. No rub. Lungs: Clear to auscultation. Abdomen: +BS. Soft. Nontender. No masses or organomegaly. Extremities: 1+ distal edema. Healing ecchymosis involving the dorsal aspect of the left foot, at all of the toes. No dorsalis pedis or posterior tibial pulses appreciated bilaterally. No cyanosis. No clubbing. Limited neurological examination is without focal deficits. Results & Data Vital Signs (Past 12 Hours) Vital Signs Temp Pulse Resp BP Pulse Ox O2 Del Method 09/27/22 11:11 36.7 C 77 18 117/75 94 Room Air 09/27/22 07:35 36.7 C 72 18 112/68 93 Room Air 09/27/22 02:59 36.4 C L 66 18 110/53 L 95 Room Air Laboratory Results Cardiac Enzymes 09/26/22 09/26/22 09/26/22 Range/Units 16:52 19:06 23:11 AST 27 (13-39) U/L Troponin I High Sens 254.8 H* 236.1 H* (0-14) pg/ml 09/27/22 09/27/22 Range/Units 05:33 10:39 AST (13-39) U/L Troponin I High Sens 249.6 H* 251.1 H* (0-14) pg/ml Coagulation 09/26/22 Range/Units 16:52 PT 11.2 (9.0-12.0) Seconds APTT 22.9 (21.0-31.0) Seconds CBC 09/26/22 09/27/22 Range/Units 16:52 05:33 WBC 15.05 H 12.03 H (4.8-10.8) K/ul RBC 4.86 4.45 (4.20-5.40) M/uL Hgb 13.1 12.0 (12.0-16.0) g/dl Hct 40.0 36.0 L (37.0-47.0) % Plt Count 173 146 (130-400) K/uL Neut # (Auto) 9.90 H (1.40-6.50) K/uL Lymph # (Auto) 0.91 L (1.2-3.4) K/uL [place] # (Auto) 0.88 H (0.11-0.59) K/uL Eos # (Auto) 0.00 (0-0.50) K/uL Baso # (Auto) 0.03 (0-0.2) K/uL Comprehensive Metabolic Panel 09/26/22 09/27/22 Range/Units 16:52 05:33 Sodium 133 L 140 (136-145) mmol/L Potassium 3.7 3.3 L (3.5-5.1) mmol/L Chloride 87 L 92 L (98-107) mmol/L Carbon Dioxide 30 36 H (21-32) mmol/L BUN 114 H 114 H (6-23) mg/dl Creatinine 3.16 H 3.27 H (0.6-1.2) mg/dl Glucose 199 H 181 H (70-99(Fasting)) mg/dl Calcium 9.9 9.8 (8.6-10.3) mg/dl AST 27 (13-39) U/L ALT 40 (7-52) U/L Alkaline Phosphatase 125 H (34-104) U/L Total Protein 7.1 (6.0-8.3) gm/dl Albumin 4.2 (3.4-5.0) gm/dl Intake and Output 09/26/22 09/27/22 09/27/22 22:59 06:59 14:59 Intake Total 1500 / 1500 240 / 240 Balance 1500 / 1500 240 / 240 Intake: IV 1500 / 1500 Sodium Chloride 0.9% 1000ML 1, 1500 / 1500 000 ml @ 999 mls/hr IV .Q1H1M ONE Rx#:[id number] Oral 240 / 240 Other: # Unmeasured Voids 1 1 Weight 82.8 kg 82.2 kg Weight Measurement Method [facility] Diagnostic Findings June 08, 2022 TTE Interpretation Summary (as per Dr. Escalante): The qualitative LV ejection fraction is 25-29% (severely reduced). The right ventricular cavity is mildly dilated. The right ventricular systolic function is mildly reduced. Mild mitral regurgitation is present. Mild aortic valve regurgitation is present. [id number] tricuspid regurgitation Continuous head wood grinder reveals atrial fibrillation with occasional premature ventricular complexes or aberrantly conducted beats. Heart rates predominantly in the 70s. No significant bradycardia. No periods of sinus. (5) CRF (chronic renal failure) Chronic kidney disease stage: unspecified stage Qualified Code(s): N18.9 - Chronic kidney disease, unspecified
--- NOTE | 2022-09-27 14:12 | Electrocardiogram Report ---
Test Reason : Blood Pressure : / mmHG Vent. Rate : 089 BPM Atrial Rate : 000 BPM P-R Int : 000 ms QRS Dur : 102 ms QT Int : 368 ms P-R-T Axes : 000 -27 143 degrees QTc Int : 447 ms Atrial fibrillation Incomplete right bundle branch block Left ventricular hypertrophy with repolarization abnormality Inferior infarct (cited on or before 02-JUN-2022) ST segment changes concerning for ischemia Abnormal ECG When compared with ECG of 05-JUN-2022 13:47, Atrial fibrillation has replaced Junctional rhythm ST more depressed Lateral leads Confirmed by Rick Mena ([id number]) on 09/27/2022 2:12:09 PM Referred By: Gabby Maddox Confirmed By:Warren Mena
--- NOTE | 2022-09-27 14:19 | Electrocardiogram Report ---
Test Reason : Blood Pressure : / mmHG Vent. Rate : 078 BPM Atrial Rate : 076 BPM P-R Int : 000 ms QRS Dur : 104 ms QT Int : 422 ms P-R-T Axes : 000 -28 146 degrees QTc Int : 481 ms Atrial fibrillation Minimal voltage criteria for LVH, may be normal variant possible Inferior infarct (cited on or before 02-JUN-2022) Nonspecific ST abnormality Abnormal ECG When compared with ECG of 26-SEP-2022 16:37, (unconfirmed) Incomplete right bundle branch block is no longer Present Confirmed by Rick Mena ([id number]) on 09/27/2022 2:18:41 PM Referred By: Gabby Maddox Confirmed By:Warren Mena
--- NOTE | 2022-09-27 17:55 | Hospitalist Progress Note ---
Date of Service September 27, 2022 Assessment & Plan (1) Weakness: Plan: 72-year-old female with PMH of T2DM on oral meds and insulin pump, moderate persistent asthma, HLD, HTN, TRUE on CPAP, extensive cardiac history, ischemic CM with EF of 20 to 34% on September 2021 echo, CHAYO, CKD stage IV, anemia of kidney disease, right breast cancer status post partial right mastectomy/currently on anastrozole presented to the ED with complaint of weakness and falls. Patient reported RLE weakness for some time which has gotten worse in the last 1 week. Patient also reports getting dizziness mostly while sitting up and her legs giving away causing her to fall. Patient denies any shortness of breath or fever or chills or numbness or tingling anywhere in the body. She is being managed for the following: Weakness and falls Says right lower extremity getting progressively more weak CT head is okay On exam, BLE power equal and normal. Patient denies any numbness or tingling. Denies any recent viral illness. Patient reports some dizziness while standing up from sitting position, orthostatic vitals obtained, monitor. Patient advised to make slow transition of position. Continue to use compression stockings. PT/OT eval. Elevated troponin Troponin 254, Patient asymptomatic Chronic elevated but usually in the 70s range Continue telemetry monitoring. Cardiology on board, discontinued diltiazem, hold Coreg, transition to Toprol 25 Mg 3 times daily. Chronic kidney disease stage IV Metabolic acidosis Creatinine 3.1 around baseline Nephrology on board, appreciate recommendation. History of CAD s/p CABG: Continue home meds as able. History of chronic systolic CHF On Bumex Potassium supplements we will follow the labs On verquo, metoprolol started this admission. Coreg and diltiazem discontinued. We will monitor for volume overload Diabetes We will continue insulin pump Pharmacy consult Hyperlipidemia continue Crestor Breast cancer S/p surgery on Anastrozole Leukocytosis No obvious source of infection Possible reactive We will follow repeat labs. Anemia of chronic disease Hemoglobin 13.1 we will follow the labs A-fib: Continue with home meds as able DVT prophylaxis: On Eliquis. Disposition: Monitoring telemetry. CODE STATUS okay for CPR and meds but no intubation. (2) Elevated troponin: Admission and Anticipated Discharge Date Admission Date: September 26, 2022 Subjective Patient seen and examined at bedside as a follow-up of generalized weakness, elevated troponin, metabolic acidosis secondary to CKD stage IV. Patient was lying in bed, on room air, NAD, reports no new acute event overnight, reports being weak, was n.p.o. due to elevated troponin, diet was restarted, denies any chest pain, denies any headache or dizziness. Patient reports some dizziness while standing up from sitting position, orthostatic vitals done, drop in blood pressure with standing up but Ortho vitals not positive. We will get PT/OT eval. Physical Exam Physical Exam: GENERAL: Alert and oriented x3. NAD, on RA. HEENT: No pallor, no icterus. Pupils equal, round and reactive to light. Oral mucosa moist. NECK: No JVD, no neck masses. HEART: S1 and S2 heard. Regular rate and rhythm. No murmur, no gallop. RESPIRATORY SYSTEM: Normal AP diameter. No accessory muscle use. No wheezing, no crackles. ABDOMEN: Soft, bowel sounds present, nontender, no distention. CENTRAL NERVOUS SYSTEM: No facial droop. Speech is clear. Obeys simple commands. Moves extremities. power ble equal and normal. no sensory changes. EXTREMITIES: No edema, no erythema seen. Results & Data Results & Data Vital Signs (Past 12 Hours) Vital Signs Temp Pulse Resp BP Pulse Ox O2 Del Method 09/27/22 11:11 36.7 C 77 18 117/75 94 Room Air 09/27/22 07:35 36.7 C 72 18 112/68 93 Room Air
[2022-09-27] MEDS ORDERED: ROSUVASTATIN CALCIUM 20 MG TAB PO SCH (21:00)
[2022-09-27] MEDS: METOPROLOL SUCC 25MG EXT REL TAB PO SCH (21:44)
[2022-09-28] MEDS: METOPROLOL SUCC 25MG EXT REL TAB PO SCH (05:56)
[2022-09-28 07:05] LABS: Hematocrit (blood only) 36.4 % (37.0-47.0); Mean Corpuscular Hemoglobin 26.5 pg (25.0-34.0); Mean Corpuscular Volume 80.4 fL (80.0-100.0); Mean Platelet Volume 11.3 fL (9.4-12.4); Platelet Count 163 K/uL (130-400); RDW Coefficient of Variation 19.9 % (11.5-14.5); RDW Standard Deviation 57.7 fL (36.4-46.3); Red Blood Count 4.53 M/uL (4.20-5.40); White Blood Count 15.48 K/ul (4.8-10.8)
[2022-09-28 07:15] LABS: BUN Creatinine Ratio 34.1 (10-20); Calcium 9.4 mg/dl (8.6-10.3); Creatinine Clr Calc Pharmacy 15.6 ml/min; Est GFR (African American) 15.8 ml/min; Est GFR (Non-African American) 13.6 ml/min; Magnesium 2.6 mg/dl (1.7-2.4); Phosphorus 7.3 mg/dl (2.5-4.9); Potassium 2.8 mmol/L (3.5-5.1)
[2022-09-28] MEDS ORDERED: POTASSIUM CHLORIDE CRTAB 20 MEQ TABCR PO STA ×2 (08:43→09:55)
[2022-09-28] MEDS: RANOLAZINE 500 MG ER TAB PO SCH (09:09)
[2022-09-28] MEDS: allopurinoL 300 MG TAB PO SCH (09:09)
[2022-09-28] MEDS: BUMETANIDE 1 MG TAB PO SCH (09:09)
[2022-09-28] MEDS: FOLIC ACID 1 MG TAB PO SCH (09:09)
[2022-09-28] MEDS: POTASSIUM CHLORIDE CRTAB 20 MEQ TABCR PO SCH (09:09)
[2022-09-28] MEDS: ANASTROZOLE 1 MG TAB PO SCH (09:09)
[2022-09-28] MEDS: APIXABAN 2.5 MG TAB PO SCH (09:09)
[2022-09-28] MEDS: INSULIN, Rapid-Acting PUMP SCH ×2 (09:10→12:39)
[2022-09-28] MEDS: FLUTICASONE/VILANTEROL 200/25MCG 14 PUFFS/INHALER INH SCH (09:10)
[2022-09-28] MEDS: PANTOprazole 40 MG TAB PO SCH (10:21)
--- NOTE | 2022-09-28 10:28 | Nephrology Progress Note ---
Date of Service September 28, 2022 Assessment & Plan Admission and Anticipated Discharge Date Admission Date: September 26, 2022 Subjective Assessment & Plan (1) Weakness: She has gen weakness especially her legs making her to weak to stand and walk--causing fall. Needs some PT. (2) CKD (chronic kidney disease), stage IV: Current creatinine is about baseline however BUN is somewhat higher than ideal at 114. Continue current dose of Bumex 2 mg in AM and 1 in PM. Discharge at the same dose. Continue daily labs and input and output chart. I will continue to follow the patient. I have known her for a long time and patient and her daughter feels comfortable with me. K got even lower even with extra K supplement. on 40 bid + will give another 80 meq today on top. may need even more. Continue bumex 1 bid ( lower than home dose) (3) Falling: As per primary team sec to weakness (4) Ischemic cardiomyopathy: She has very extensive cardiac problems with numerous cardiac stents and low ejection fraction. Multiple admissions in the recent past for congestive heart failure. However at this time does not appear to be in any significant congestive heart failure.As per primary team/cardiology S--feels weak. Appetite not so great. K got even lower. Physical Exam Physical Exam: Awake and alert. NO distress Neck: Supple. No JVD Respiratory: b/l clear. No distress Cardiovascular: RRR. Soft Bianka murmur E Gastrointestinal (Abdomen): Soft non tender. Obese. Skin: No rash Results & Data Vital Signs (Past 12 Hours) Vital Signs Temp Pulse Resp BP Pulse Ox O2 Del Method 09/28/22 08:18 36.8 C 68 16 120/74 91 Room Air 09/28/22 05:55 81 126/78 09/28/22 03:23 36.8 C 65 18 128/80 96 Room Air 09/27/22 23:04 36.5 C 74 18 127/77 95 Room Air
--- NOTE | 2022-09-28 12:00 | Cardiology Progress Note ---
Date of Service September 28, 2022 Assessment & Plan (1) Weakness: (2) Elevated troponin: (3) Falling: (4) Acute dehydration: (5) CRF (chronic renal failure): (6) Ischemic cardiomyopathy: (7) CKD (chronic kidney disease), stage IV: Plan Complex 72-year-old female admitted for evaluation of weakness, history suggesting symptomatic orthostatic hypotension and deconditioning. Elevated troponin noted without significant EKG changes or associated symptoms, in the absence of an acute coronary syndrome and in the presence of significant renal dysfunction. Resting echocardiography was technically limited, revealing severely reduced LV systolic function, ejection fraction 25 to 30% with a severely hypokinetic to akinetic septum and an akinetic basal inferior and posterior woodard with otherwise diffuse hypokinesis. RV systolic function reduced by TAPSE. Mild aortic regurgitation, mild to moderate mitral regurgitation, and moderate tricuspid regurgitation observed without Doppler findings to suggest pulmonary hypertension. Heart rates adequately controlled with patient appropriately anticoagulated with reduced dose apixaban 2.5 mg twice per day. Diltiazem and carvedilol transitioned to metoprolol succinate at 37.5 mg twice per day. Rosuvastatin 40 mg/day will be changed to atorvastatin 80 mg/day noting altered kidney function. Supplemental potassium has already been administered for the significant hypokalemia. Caution regarding use of Ranexa noting patient's significantly altered kidney function. Suspect use of Verquvo precludes the use of long acting nitrates. Increase activity as tolerated. Cardiology follow-up with longstanding outpatient provider in [place]. Admission and Anticipated Discharge Date Admission Date: September 26, 2022 Supervising Physician Co-Signing Physician Notes 72-year-old female admitted with weakness. Diltiazem and carvedilol discontinued yesterday in favor of metoprolol succinate 25 mg 3 times daily. Heart rate remains controlled. Blood pressure within acceptable range PE: VSS. Gen: NAD, AAO x3. Heart: Irregular rhythm, normal S1-S2. 2/6 systolic ejection murmur heard best at the base. Lungs: Clear bilateral. No rales, rhonchi, wheeze. Extremities: Mild bilateral pedal edema. A/P: Agree with above PA-C history, physical exam, assessment and plan. Transition metoprolol succinate to 50 mg in a.m., 25 mg in the evening. Recommend avoiding further use of diltiazem with history of cardiomyopathy. Continue telemetry monitoring. Other cardiovascular meds will be continued as previously ordered. Cardiology will sign off. Please call with questions. Subjective Patient seen and examined. Chart, medications, telemetry reviewed. Without CPAP therapy last night and the night before. Awoke tired. Ongoing weakness. No chest pain. No palpitations. No shortness of breath. No dizziness or lightheadedness. No fevers or chills. Continuous potline monitor reviewed, revealing atrial fibrillation with heart rates predominantly in the 60s and 70s. No periods of sinus. No significant bradycardia. Review of Systems Review of Systems: Complete review of systems is otherwise as stated above, negative, n oncontributory. Physical Exam Physical Exam: General: A&Ox3. NAD. HENT: Normocephalic. Atraumatic. Eyes: PER. Conjunctiva pink, sclera injected. Neck: Bilateral carotid bruits. No JVD. No HJR. Heart: Irregularly irregular at 70 bpm. Systolic murmur. No diastolic murmur. No rub. Lungs: Clear to auscultation. Abdomen: +BS. Soft. Nontender. No masses or organomegaly. Extremities: Trace to 1+ distal edema. Healing ecchymosis involving the dorsal aspect of the left foot. No dorsalis pedis or posterior tibial pulses appreciated bilaterally. No cyanosis. No clubbing. Limited neurological examination is without focal deficits. Results & Data Vital Signs (Past 12 Hours) Vital Signs Temp Pulse Resp BP Pulse Ox O2 Del Method 09/28/22 11:29 36.5 C 68 16 108/72 98 Room Air 09/28/22 08:18 36.8 C 68 16 120/74 91 Room Air 09/28/22 05:55 81 126/78 09/28/22 03:23 36.8 C 65 18 128/80 96 Room Air Laboratory Results Cardiac Enzymes 09/27/22 Range/Units 17:21 Troponin I High Sens 238.0 H* (0-14) pg/ml CBC 09/28/22 Range/Units 05:38 WBC 15.48 H (4.8-10.8) K/ul RBC 4.53 (4.20-5.40) M/uL Hgb 12.0 (12.0-16.0) g/dl Hct 36.4 L (37.0-47.0) % Plt Count 163 (130-400) K/uL Comprehensive Metabolic Panel 09/28/22 Range/Units 05:38 Sodium 138 (136-145) mmol/L Potassium 2.8 L (3.5-5.1) mmol/L Chloride 92 L (98-107) mmol/L Carbon Dioxide 33 H (21-32) mmol/L BUN 110 H (6-23) mg/dl Creatinine 3.23 H (0.6-1.2) mg/dl Glucose 96 (70-99(Fasting)) mg/dl Calcium 9.4 (8.6-10.3) mg/dl Intake and Output 09/27/22 09/28/22 09/28/22 22:59 06:59 14:59 Intake Total 100 / 740 400 / 740 Output Total Balance 99 / 739 400 / 739 Intake: Oral 100 / 740 400 / 740 Output: # Bowel Movements Other: # Unmeasured Voids 1 2 Weight 82 kg Weight Measurement Method Built in [facility] (5) CRF (chronic renal failure) Chronic kidney disease stage: unspecified stage Qualified Code(s): N18.9 - Chronic kidney disease, unspecified
--- NOTE | 2022-09-28 12:22 | Electrocardiogram Report ---
Test Reason : Blood Pressure : / mmHG Vent. Rate : 070 BPM Atrial Rate : 078 BPM P-R Int : 000 ms QRS Dur : 114 ms QT Int : 452 ms P-R-T Axes : 000 -33 138 degrees QTc Int : 488 ms Atrial fibrillation Left axis deviation Incomplete right bundle branch block possible Inferior infarct (cited on or before 02-JUN-2022) Marked ST abnormality, possible lateral subendocardial injury Abnormal ECG When compared with ECG of 27-SEP-2022 06:19, No significant change was found Confirmed by Rick Mena ([id number]) on 09/28/2022 12:22:25 PM Referred By: Gabby Maddox Confirmed By:Warren Mena
--- NOTE | 2022-09-28 15:19 | Discharge Summary ---
Date of Service September 28, 2022 Admission HPI Per Admitting Provider This is 72-year-old female with past medical history significant for type 2 diabetes on oral meds and insulin pump, moderate persistent asthma, hyperlipidemia, hypertension, obstructive sleep apnea on CPAP, extensive cardiac history, ischemic cardiomyopathy with a EF of 20 to 34% on September 2021 echo, iron deficiency anemia, chronic kidney disease stage IV, anemia currently disease, history of right breast cancer s/p partial right mastectomy and currently on anastrozole who lives at home with her daughter presents with weakness and falls. Patient states she has right lower extremity weakness for some time but since last 1 week it got worse, the leg giving away and she is falling down. That is the reason she came to the ER today. Denies any chest pain or shortness of breath. No nausea or vomiting. No abdominal pain. Normal bowel and bladder movements. No headache or dizziness. Vision is okay. No runny nose no sore throat no cough no earaches. No difficulty swallowing. Currently hemodynamically stable resting comfortably. Daughter is in the room. Past medical history as mentioned above Past surgical history biopsy of the breast, CABG, cardiac angioplasty, cardiac caths, carpal tunnel surgery, , colonoscopy, combined right and left heart cath, EGD, EGD with endoscopic ultrasound, stent to right coronary artery, iliac artery angiography, s/p defibrillator, right partial mastectomy, s/p radiation treatment, tonsillectomy, cataract surgery Admission Exam Per Admitting Provider General- adult Head- atraumatic Eyes- PERRL, ENT- oropharynx clear Neck- supple, no JVD, Lungs- clear to auscultation and percussion Heart- regular rhythm; no murmur, no gallop, no rub appreciated Abdomen- normal bowel sounds, soft, nontender, no masses or hepatosplenomegaly Extremities- no pretibial edema, no erythema. Neuro- alert, oriented x 3; PERRL, EOMI; no facial palsy; no dysarthria; power 5/5 let lower extremity 4-5/5 in right lower extremity, sensations intact Skin- warm & dry Principal Diagnosis Generalized weakness/deconditioning Falls Elevated troponin, chronic, likely secondary to stage IV CKD Stage IV CKD Discharge Exam GENERAL: Alert and oriented x3. NAD, on RA. HEENT: No pallor, no icterus. Pupils equal, round and reactive to light. Oral mucosa moist. NECK: No JVD, no neck masses. HEART: S1 and S2 heard. Regular rate and rhythm. No murmur, no gallop. RESPIRATORY SYSTEM: Normal AP diameter. No accessory muscle use. No wheezing, no crackles. ABDOMEN: Soft, bowel sounds present, nontender, no distention. CENTRAL NERVOUS SYSTEM: No facial droop. Speech is clear. Obeys simple commands. Moves extremities. power ble equal and normal. no sensory changes. EXTREMITIES: No edema, no erythema seen. Discharge Data Allergies Allergy/AdvReac Type Severity Reaction Status Date / Time tramadol Allergy Severe Anaphylaxis Verified 06/02/22 16:16 dopamine Allergy Unknown CAN'T Verified 06/02/22 16:16 REMEMBER morphine AdvReac Severe SEVERE Verified 06/02/22 16:16 VOMITING--"SICKER THAN A DOG" gabapentin AdvReac Intermediate INCREASED Verified 06/02/22 16:16 LEG EDEMA lisinopril AdvReac Intermediate Cough Verified 06/02/22 16:16 rofecoxib AdvReac Intermediate SWELLING Verified 06/02/22 16:16 OF ANKLES/FEET Consultations 09/26/22 20:17 ED Decision to Admit Stat 09/27/22 08:00 Consult Cardiology Routine Consult Nephrology Routine Ordered Studies 09/26/22 17:15 CT head/brain wo con Stat Hospital Course (1) Weakness: 72-year-old female with PMH of T2DM on oral meds and insulin pump, moderate persistent asthma, HLD, HTN, TRUE on CPAP, extensive cardiac history, ischemic CM with EF of 20 to 34% on September 2021 echo, CHAYO, CKD stage IV, anemia of kidney dis ease, right breast cancer status post partial right mastectomy/currently on anastrozole presented to the ED with complaint of weakness and falls. Patient reported RLE weakness for some time which has gotten worse in the last 1 week. Patient also reports getting dizziness mostly while sitting up and her legs giving away causing her to fall. Patient denies any shortness of breath or fever or chills or numbness or tingling anywhere in the body. She was managed for the following: Weakness and falls/likely deconditioning Says right lower extremity getting progressively more weak CT head is okay On exam, BLE power equal and normal. Patient denies any numbness or tingling. Denies any recent viral illness. Patient reports some dizziness while standing up from sitting position, orthostatic vitals obtained, monitor. Patient advised to make slow transition of position. Continue to use compression stockings. PT/OT eval. Elevated troponin, chronic elevation likely secondary to worsening renal function. Troponin 254, Patient asymptomatic Chronic elevated but usually in the 70s range Continue telemetry monitoring. Cardiology on board, discontinued diltiazem atorvastatin, Coreg. On metoprolol succinate 50 Mg in the morning and 25 Mg in the evening. On atorvastatin 80 Mg daily. . Chronic kidney disease stage IV Metabolic alkalosis Creatinine 3.1 around baseline Nephrology on board, appreciate recommendation. History of CAD s/p CABG: Continue home meds as able. With noted changes able. History of chronic systolic CHF On Bumex Potassium supplements On verquo, metoprolol started this admission. Coreg and diltiazem discontinued. Euvolemic Diabetes We will continue insulin pump Pharmacy consult Hyperlipidemia continue Crestor Breast cancer S/p surgery on Anastrozole Leukocytosis, appears chronic on outpatient chart review. No obvious source of infection Patient afebrile and hemodynamically stable. Anemia of chronic disease Hemoglobin 13.1 we will follow the labs A-fib: Continue with home meds as able DVT prophylaxis: On Eliquis. Disposition: Monitoring telemetry. CODE STATUS okay for CPR and meds but no intubation. Patient being discharged home with home health and with family support with following instruction at the point of discharge. Follow-up with the primary care physician within a week time and likely you will need labs CBC/CMP/magnesium/phosphorus. Call your PCP office or nephrology office for BMP in 3 days. Follow-up with your cardiology as prior. Follow-up with the nephrology as prior. Cardiology evaluated you while in the hospital, your diltiazem and Coreg has been discontinued, you are started on metoprolol succinate 50 Mg in the morning and 25 mg in the evening. Your rosuvastatin has been discontinued due to poor kidney function. You are started on atorvastatin. As discussed at the bedside, maintain slow transition between changing position from lying to sitting up and from sitting up to standing position. You can use compression stockings as tolerated. Kidney doctor evaluated you while in the hospital, your Bumex dose is 1 mg twice a day. Continue close follow-up with kidney doctor. Take your medications as prescribed. (2) Elevated troponin: Home Health Attestation I certify that this patient is under my care and that I, or a physicians technology assistant working with me, had a face to-face encounter that meets the home health [id number] encounter requirements with this patient. The encounter with the patient was in whole, or in part, for the following medical condition, which is the primary reason for home health care (list medical condition): symptomatic orthostatic hypotension , CKD I certify that, based on my findings, the following services are medically necessary home health services: My clinical findings support the need for the above services because: Home Safety Assessment OT Assess ADL Status and Restore Function w ADLs PT Assessment for Endurance / Balance / Strength PT Eval for Safety and Mobility PT Eval for Safety, Gait Training, Assistive Devices PT Gait and Balance Training, Strengthening and Safety Further, I certify that my clinical findings support that this patient is homebound (i.e. absences from home require considerable and taxing effort and are for medical reasons or bahai services or infrequently or of short duration when for other reasons) because: Supportive Aid - Walker Transportation Assistance/Unable to Leave Home Unassisted Certification for Home Health Services: Based on the above findings, I certify that this patient is confined to the home and needs intermittent mcfp care, physical therapy and/or speech therapy or continues to need occupational therapy. The patient is under my care, and I have initiated the establishment of the plan of care. This patient will be followed by a physician who will periodically review the plan of care. Total Time Total Time Spent Total Time Spent (In Minutes): 45 Discharge Plan Discharge Items Patient Disposition: Home - Home Health Services Reason For Visit: WEAKNESS Discharge Diagnosis: Generalized weakness/deconditioning Falls Elevated troponin, chronic, likely secondary to stage IV CKD Stage IV CKD Condition on Discharge: Fair Activity: As commented below Activity Comment: Continue with physical therapy @home,slow transition w/ change in position Non-emergency contact: Primary Care Provider Call non-emergency contact if: you have any medication questions, your symptoms worsen and your temperature is above 101 Follow-up/Referrals: Gabby Maddox MD [Primary Care Provider] - Diet: Carb Consistent or DM2 and Heart Healthy Addtl Attending Provider Instructions: Follow-up with the primary care physician within a week time and likely you will need labs CBC/CMP/magnesium/phosphorus. Call your PCP office or nephrology office for BMP in 3 days. Follow-up with your cardiology as prior. Follow-up with the nephrology as prior. Cardiology evaluated you while in the hospital, your diltiazem and Coreg has been discontinued, you are started on metoprolol succinate 50 Mg in the morning and 25 mg in the evening. Your rosuvastatin has been discontinued due to poor kidney function. You are started on atorvastatin. As discussed at the bedside, maintain slow transition between changing position from lying to sitting up and from sitting up to standing position. You can use compression stockings as tolerated. Kidney doctor evaluated you while in the hospital, your Bumex dose is 1 mg twice a day. Continue close follow-up with kidney doctor. Take your medications as prescribed. Pending Studies at Discharge: No Stand-Alone Forms: My [facility] [employer], Smoking Cessation Medications and DC Order Prescriptions: New atorvastatin 40 mg Tablet 80 mg PO QAM Qty: 60 0RF metoprolol succinate 25 mg tablet extended release 24 hr 25 mg PO HS Qty: 30 0RF metoprolol succinate 50 mg tablet extended release 24 hr 50 mg PO .am Qty: 30 0RF Continued anastrozole 1 mg tablet 1 mg PO QAM acetaminophen [Tylenol Extra Strength] 500 mg Tablet 1,000 mg PO BID PRN (Reason: Pain) lorazepam 0.5 mg Tablet 0.5 mg PO HS PRN (Reason: Insomnia) insulin aspart U-100 100 unit/mL Solution 1 sliding scale dose continuous subcutaneous infusion CONTINOUS Rx Instructions: 09/26/22- Per pt it was changed today: 20 units every meal and 5 units for snacks. PER [facility]--15 UNITS/BREAKFAST, 40 UNITS LUNCH & DINNER WITH ADDITIONAL CORRECTION FACTOR. nitroglycerin [Nitrostat] 0.4 mg Tablet, Sublingual 0.4 mg sublingual DIRECTED PRN (Reason: Chest Pain) Rx Instructions: 1 TAB UNDER TONGUE EVERY 5 MIN. NEEDED, MAX 3 DOSES, IF CONTINUES CALL 911. bumetanide 1 mg tablet 1 mg PO BID Rx Instructions: PER [facility]--IF WT GAIN >3LB/24 HR OR 5 LB/3 DAYS, TAKES 2 MG IN MORNING. folic acid 1 mg Tablet 1 mg PO QAM allopurinol 300 mg tablet 300 mg PO QAM ranolazine 500 mg Tablet Extended Release 12 Hr 500 mg PO BID fluticasone propion-salmeterol [Advair HFA] 230-21 mcg/actuation Hfa Aerosol Inhaler 2 puff INHALATION BID PRN (Reason: Other) empagliflozin 10 mg Tablet 10 mg PO QAM Trulicity 3 mg/0.5 mL pen injector 3 mg SUBCUT WK Rx Instructions: TAKES ON SUNDAYS Verquvo 10 mg Tablet 5 mg PO DAILY Rx Instructions: must administer with a meal/food pantoprazole [Protonix] 40 mg tablet,delayed release (DR/EC) 40 mg PO BID Qty: 60 0RF Eliquis 5 mg tablet 2.5 mg PO BID Qty: 1 0RF potassium chloride 20 mEq tablet,ER particles/crystals 40 meq PO BID Discontinued rosuvastatin [Crestor] 40 mg Tablet 40 mg PO HS diltiazem HCl 120 mg capsule,extended release 24hr 120 mg PO DAILY carvedilol 6.25 mg tablet 6.25 mg PO BID Discharge Orders: Discharge Order (Routine); Ordered 09/28/22 Ordered By: Racquel Shah Admission Data Admit Date/Time: 09/26/22 21:33 Attending Provider: Racquel Shah Admit Provider: Farhad Parrish Primary Care Provider: Gabby Maddox Other Providers: Farhad Parrish ; Brian Hayden ; Lea Murary
[2022-09-28] MEDS ORDERED: METOPROLOL SUCC 25MG EXT REL TAB PO SCH (21:00)
[2022-09-29] MEDS ORDERED: ATORVASTATIN 40 MG TAB PO SCH (09:00)
--- NOTE | 2022-09-30 10:45 | Coding Query ---
CODING QUERY To promote full compliance with coding requirements relating to patient care, provider participation is requested in all cases of data capture specialist uncertainty. Please assist us with the question(s) below: Coding Question(s): Pt admitted with weakness, elevated troponin and dehydration. Discharge Summary documented deconditioning. Please document, if known or suspected, the etiology of the deconditioning. Thanks for your help! Alexis Arce [facility] Physician's Response(s): suspected, secondary to multiple comorbidities/inactivity Principal Diagnosis: "that condition established after study, to be chiefly responsible for occasioning the admission of the patient to the hospital for care." Co-Existing Principal Diagnosis: "when two or more diagnoses equally meet the criteria for principal diagnosis as determined by the circumstances of admission, diagnostic work up, and/or therapy provided, and the Alphabetic Index, Tabular List, or another coding guideline does not provide sequencing direction, any one of the diagnoses may be sequenced first." "When the physician has documented what appears to be a current diagnosis in the body of the record, but has not included the diagnosis in the final diagnostic statement, the physician should be asked whether the diagnosis should be added." (Source Coding [facility] 2 QTR90. p3-4) JEAN
== END 2022-09-28 15:57 | disposition home health service (06) | DRG 948 ==
LOC: ED 15:46 → SUATTDRO 21:33 → 2S 21:33